=== PATIENT | female | born 1965 | race Caucasian/White ===

== ENCOUNTER 2016-12-05 15:56 | Emergency (ER) | payer SELFPAY ==
--- NOTE | 2016-12-05 16:08 | ER Document Report ---
ED Medical Screen (RME) - General Stated Complaint: FALL;LEG PAIN Time seen by provider: 16:03 Mode of Arrival: Medic Information source: Patient Notes: Patient complains of lower leg pain from the knees down bilaterally for 2 days. States swelling to her right knee. Denies new injury. Also states she went to sit down yesterday and fell back and hit her head on the table. Denies loss of consciousness. States she has only had 1 drink today, vodka. I have greeted and performed a rapid initial assessment of this patient. A comprehensive ED assessment and evaluation of the patient, analysis of test results and completion of the medical decision making process will be conducted by additional ED providers. TRAVEL OUTSIDE OF THE [place] IN LAST 30 DAYS: No - Related Data Allergies/Adverse Reactions: No Known Allergies Allergy (Verified 08/29/16 00:02) Past Medical History - Past Medical History Cardiac Medical History: Reports: Hx Heart Attack, Hx Hypertension Neurological Medical History: Reports: Hx Cerebrovascular Accident Past Surgical History: Reports: Hx Breast Surgery - Benign, Hx Tubal Ligation - Immunizations Hx Diphtheria, Pertussis, Tetanus Vaccination: Yes
--- NOTE | 2016-12-05 17:09 | ER Document Report ---
ED General - General Chief Complaint: Leg Pain Stated Complaint: FALL;LEG PAIN Mode of Arrival: Medic Information source: Patient Notes: Patient presents to the emergency department with complaints of bilateral lower leg pain for two days. She points to her shins bilaterally, rubs them and reports they ache. She denies recent exercise or new shoes. She denies calf pain. She denies trauma. She reports it just started hurting. She reports it hurts to walk. She also reports she went to sit in the recliner yesterday and missed, fell hitting her head. Denies change in LOC. Denies drinking alcohol yesterday. She c/o head pain today. Denies v/d. Patient reports she is only had one vodka drink today. TRAVEL OUTSIDE OF THE [place] IN LAST 30 DAYS: No - HPI Onset: Other - 2 days Onset/Duration: Persistent Quality of pain: Achy Severity: Severe Pain Level: 5 Associated symptoms: None Exacerbated by: Walking Relieved by: Denies Similar symptoms previously: No Recently seen / treated by doctor: No - Related Data Allergies/Adverse Reactions: No Known Allergies Allergy (Verified 08/29/16 00:02) Past Medical History - General Information source: Patient - Social History Smoking Status: Current Every Day Smoker Cigarette use (# per day): Yes Chew tobacco use (# tins/day): No Frequency of alcohol use: Social Drug Abuse: None Lives with: Friend - boyfriend Family History: Arthritis, CAD, CVA, Hyperlipidemia, Hypertension, Malignancy Patient has suicidal ideation: No Patient has homicidal ideation: No - Past Medical History Cardiac Medical History: Reports: Hx Heart Attack - 2010, Hx Hypertension Neurological Medical History: Reports: Hx Cerebrovascular Accident Renal/ Medical History: Denies: Hx Peritoneal Dialysis Past Surgical History: Reports: Hx Breast Surgery - Benign, Hx Tubal Ligation - Immunizations Hx Diphtheria, Pertussis, Tetanus Vaccination: Yes Review of Systems - Review of Systems Notes: Review HPI for review of systems., All other systems negative Physical Exam - Vital signs Vitals: Temp Pulse Resp BP Pulse Ox 97.5 F 90 16 138/90 H 98 12/05/16 16:00 12/05/16 16:00 12/05/16 16:00 12/05/16 16:00 12/05/16 16:00 - Notes Notes: PHYSICAL EXAMINATION: GENERAL: Well-appearing and in no acute distress nontoxic looking HEAD: Atraumatic, normocephalic. EYES: Pupils equal round and reactive to light, extraocular movements intact, sclera anicteric, conjunctiva are normal. ENT: nares patent, Moist mucous membranes. NECK: Normal range of motion, supple without lymphadenopathy LUNGS: CTAB and equal. No wheezes rales or rhonchi. HEART: Regular rate and rhythm without murmurs EXTREMITIES: Normal range of motion, no pitting edema. No cyanosis. no erythema , no swelling, neg homans, good pedal pulses bilaterally good pushes and pulls bilaterally, no weakness noted. NEUROLOGICAL: Cranial nerves grossly intact. Normal sensory/motor answers all questions appropriately. PSYCH: Normal mood, normal affect. SKIN: Warm, Dry, normal turgor, no erythema noted Course - Re-evaluation Re-evalutation: 12/05/16 17:10 I have consulted the attending provider dr avilez, per [facility] guidelines, ct head advised 12/05/16 18:30 Bilateral tib-fib and CT negative..Review of old records noted patient was here in August with a fall and EtOH on board. Patient was instructed on results and encouraged to decrease drinking. - Vital Signs Vital signs: Temp Pulse Resp BP Pulse Ox 98.5 F 83 16 133/92 H 97 12/05/16 18:50 12/05/16 18:50 12/05/16 16:00 12/05/16 18:50 12/05/16 18:50 - Diagnostic Test Radiology reviewed: Image reviewed, Reports reviewed - neg ct, neg tib fibs Discharge - Discharge Clinical Impression: biateral lower leg [place] pain, Elevated blood pressure reading Fall Qualifiers: Encounter type: initial encounter Qualified Code(s): W19.XXXA - Unspecified fall, initial encounter Head injury Qualifiers: Encounter type: initial encounter Qualified Code(s): S09.90XA - Unspecified injury of head, initial encounter Condition: Stable Disposition: HOME, SELF-CARE Instructions: Use of [id number] Ibuprofen ([facility]), Head Injury Precautions ([facility]) Additional Instructions: *You have been evaluated for bilateral lower leg, [place] pain, fall *Monitor your blood pressure. Your blood pressure was elevated today. This may be because you were anxious, in pain or because you need medication. It is important to follow up with your primary care provider for full evaluation. *Take tylenol as indicated for pain *Monitor your alcohol intake *Follow up with your primary care provider Wednesday for recheck *Return to ED for worsening condition, changes, needs Forms: Elevated Blood Pressure
[2016-12-05 18:58] VITALS: BP 133/92
== END 2016-12-05 18:59 | disposition home or self-care (01) ==
LOC: ER 15:56
DX: S09.90XA Unspecified injury of head, initial encounter (principal); R51 Headache; W07.XXXA Fall from chair, initial encounter; M79.662 Pain in left lower leg; M79.661 Pain in right lower leg; I25.2 Old myocardial infarction; I10 Essential (primary) hypertension; F17.210 Nicotine dependence, cigarettes, uncomplicated; Z86.73 Personal history of transient ischemic attack (TIA), and cerebral infarction without residual deficits
CPT/HCPCS: 70450; 99284

== ENCOUNTER 2016-12-22 07:17 | Emergency (ER) | payer SELFPAY ==
--- NOTE | 2016-12-22 09:28 | ER Document Report ---
ED General - General Chief Complaint: Leg Pain Stated Complaint: LEG PAIN Mode of Arrival: Ambulatory Information source: Patient Notes: 51-year-old female presents with complaints of bilateral leg pain after mechanical fall 2 weeks ago. Patient was seen at that time noted to have no fractures. Patient denies any loss of bowel or bladder function TRAVEL OUTSIDE OF THE [place] IN LAST 30 DAYS: No - HPI Onset: Other - 2 week duration Onset/Duration: Persistent Quality of pain: Achy Severity: Mild Pain Level: 1 Associated symptoms: Body/muscle aches Exacerbated by: Movement Relieved by: Denies Similar symptoms previously: No Recently seen / treated by doctor: No - Related Data Allergies/Adverse Reactions: No Known Allergies Allergy (Verified 12/22/16 07:41) Past Medical History - Social History Smoking Status: Current Every Day Smoker Cigarette use (# per day): No Chew tobacco use (# tins/day): Yes Smoking Education Provided: No Frequency of alcohol use: Heavy Family History: Arthritis, CAD, CVA, Hyperlipidemia, Hypertension, Malignancy Patient has suicidal ideation: No Patient has homicidal ideation: No - Past Medical History Cardiac Medical History: Reports: Hx Heart Attack - 2011, Hx Hypertension Neurological Medical History: Reports: Hx Cerebrovascular Accident Renal/ Medical History: Denies: Hx Peritoneal Dialysis Past Surgical History: Reports: Hx Breast Surgery - Benign, Hx Tubal Ligation - Immunizations Hx Diphtheria, Pertussis, Tetanus Vaccination: Yes Review of Systems - Review of Systems Notes: REVIEW OF SYSTEMS: CONSTITUTIONAL : Denies fever, chills, or sweats. Denies recent illness. EENT: Denies eye, ear, throat, or mouth pain or symptoms. Denies nasal or sinus congestion or discharge. Denies throat, tongue, or mouth swelling or difficulty swallowing. CARDIOVASCULAR: Denies chest pain. Denies palpitations or racing or irregular heart beat. Denies ankle edema. RESPIRATORY: Denies cough, cold, or chest congestion. Denies shortness of breath, difficulty breathing, or wheezing. GASTROINTESTINAL: Denies abdominal pain or distention. Denies nausea, vomiting , or diarrhea. Denies blood in vomitus, stools, or per rectum. Denies black, tarry stools. Denies constipation. GENITOURINARY: Denies difficulty urinating, painful urination, burning, frequency, blood in urine, or discharge. FEMALE GENITOURINARY: Denies vaginal bleeding, heavy or abnormal periods, irregular periods. Denies vaginal discharge or odor. MUSCULOSKELETAL: Admits to bilateral [place] pain rating to her feet with numbness SKIN: Denies rash, lesions or sores. HEMATOLOGIC : Denies easy bruising or bleeding. LYMPHATIC: Denies swollen, enlarged glands. NEUROLOGICAL: Denies confusion or altered mental status. Denies passing out or loss of consciousness. Denies dizziness or lightheadedness. Denies headache. Denies weakness or paralysis or loss of use of either side. Denies problems with gait or speech. Denies sensory loss, numbness, or tingling. Denies seizures. PSYCHIATRIC: Denies anxiety or stress. Denies depression, suicidal ideation, or homicidal ideation. ALL OTHER SYSTEMS REVIEWED AND NEGATIVE. Dictation was performed using [employer] voice recognition software PHYSICAL EXAMINATION: GENERAL: Well-appearing, well-nourished and in no acute distress. HEAD: Atraumatic, normocephalic. EYES: Pupils equal round and reactive to light, extraocular movements intact, conjunctiva are normal. ENT: Nares patent, oropharynx clear without exudates. Moist mucous membranes. NECK: Normal range of motion, supple without lymphadenopathy LUNGS: Breath sounds clear to auscultation bilaterally and equal. No wheezes rales or rhonchi. HEART: Regular rate and rhythm without murmurs ABDOMEN: Soft, nontender, nondistended abdomen. No guarding, no rebound. No masses appreciated. Female : deferred Musculoskeletal: Normal range of motion, no pitting or edema. No cyanosis. NEUROLOGICAL: Cranial nerves grossly intact. Normal speech, normal gait. Normal sensory, motor exams PSYCH: Normal mood, normal affect. SKIN: Warm, Dry, normal turgor, no rashes or lesions noted. Physical Exam - Vital signs Vitals: Temp Pulse Resp BP Pulse Ox 97.6 F 112 H 16 155/106 H 98 12/22/16 07:22 12/22/16 07:22 12/22/16 07:22 12/22/16 07:22 12/22/16 07:22 Course - Re-evaluation Re-evalutation: 12/22/16 09:26 Patient has no calf pain, swelling. Patient's pain is in her shins pain down to her feet with numbness. I will treat her for neuropathy at this time and see no life-threatening issues Patient will be given follow-up with [facility] After performing a Medical Screening Examination, I estimate there is LOW risk for EXPANDING OR RUPTURED ABDOMINAL AORTIC ANEURYSM, CAUDA EQUINA SYNDROME, EPIDURAL MASS LESION, or HERNIATED DISK CAUSING SEVERE SPINAL STENOSIS, thus I consider the discharge disposition reasonable. The patient and I have discussed the diagnosis and risks, and we agree with discharging home and close follow-up. We also discussed returning to the Emergency Department immediately if new or worsening symptoms occur with the understanding that symptoms and presentations can change. We have discussed the symptoms which are most concerning (e.g., saddle anesthesia, urinary or bowel incontinence or retention , changing or worsening pain) that necessitate immediate return. 12/22/16 11:33 - Vital Signs Vital signs: Temp Pulse Resp BP Pulse Ox 97.4 F 87 16 138/74 H 96 12/22/16 09:34 12/22/16 09:34 12/22/16 09:34 12/22/16 09:34 12/22/16 09:34 - Laboratory Laboratory results interpreted by me: 12/22/16 09:19 POC Glucose 116 H Discharge - Discharge Clinical Impression: Neuropathy Leg pain Qualifiers: Laterality: bilateral Qualified Code(s): M79.604 - Pain in right leg Condition: Stable Disposition: HOME, SELF-CARE Instructions: Leg Pain Nonspecific ([facility]) Additional Instructions: Please follow-up with [facility] in 1-2 days for reevaluation Prescriptions: Gabapentin 300 mg PO BID #60 capsule Referrals: JUSTINO VALLE MD [Primary Care Provider] - Follow up tomorrow
[2016-12-22 09:36] VITALS: BP 138/74
== END 2016-12-22 09:30 | disposition home or self-care (01) ==
LOC: ER 07:17
DX: G62.9 Polyneuropathy, unspecified (principal); M79.1 Myalgia; I10 Essential (primary) hypertension; I25.2 Old myocardial infarction; Z86.73 Personal history of transient ischemic attack (TIA), and cerebral infarction without residual deficits; F17.200 Nicotine dependence, unspecified, uncomplicated
CPT/HCPCS: 82962; 99283

== ENCOUNTER 2017-02-12 13:31 | Inpatient (IN) | payer SELFPAY ==
[2017-02-12] MEDS ORDERED: NORMAL SALINE 1000 ML 1,000 ML IV ONE (13:52)
[2017-02-12] MEDS ORDERED: THIAMINE HCL INJ 200 MG/2 ML VIAL IV ONE (13:53)
--- NOTE | 2017-02-12 13:57 | ER Document Report ---
ED General - General Mode of Arrival: Medic Information source: Emergency Med Personnel TRAVEL OUTSIDE OF THE [place] IN LAST 30 DAYS: No - HPI Patient complains to provider of: Jaundice Onset: Other - 3 weeks ago Associated symptoms: Other - see notes above <MICHAELA GAXIOLA - Last Filed: 02/12/17 13:51> <MAXIMUS MEDINA - Last Filed: 02/12/17 18:27> - General Chief Complaint: Jaundice Stated Complaint: WEAKNESS Notes: 52 year old female with history of alcohol abuse presents to the ED via EMS after reportedly being in bed jaundiced for the past 3 weeks. ED nursing staff state that the patient was brought in covered in her own feces and urine. A comprehensive HPI is unobtainable secondary to the patient's status. (MICHAELA GAXIOLA) - Related Data Allergies/Adverse Reactions: No Known Allergies Allergy (Verified 12/22/16 07:41) Past Medical History - General Information source: Emergency Med Personnel - Social History Smoking Status: Unknown if Ever Smoked Frequency of alcohol use: Heavy Family History: Arthritis, CAD, CVA, Hyperlipidemia, Hypertension, Malignancy - Past Medical History Cardiac Medical History: Reports: Hx Heart Attack - 2011, Hx Hypertension Neurological Medical History: Reports: Hx Cerebrovascular Accident Renal/ Medical History: Denies: Hx Peritoneal Dialysis Past Surgical History: Reports: Hx Breast Surgery - Benign, Hx Tubal Ligation - Immunizations Hx Diphtheria, Pertussis, Tetanus Vaccination: Yes <MICHAELA GAXIOLA - Last Filed: 02/12/17 13:51> Review of Systems - Review of Systems -: Yes ROS unobtainable due to patient's medical condition <MICHAELA GAXIOLA - Last Filed: 02/12/17 13:51> Physical Exam - General General appearance: Alert, Other - cachectic In distress: None - HEENT Head: Normocephalic, Atraumatic Eyes: Other - scleral jaundice. No: Normal Extraocular movements intact: Yes Pupils: PERRL - Respiratory Respiratory status: No respiratory distress Breath sounds: Normal - Cardiovascular Rhythm: Regular Heart sounds: Normal auscultation - Abdominal Inspection: Normal Distension: No distension Tenderness: Nontender - Back Back: Normal - Extremities General upper extremity: Normal ROM. No: Normal inspection - dark brown staining under the bilateral cuticles General lower extremity: Normal ROM. No: Normal inspection - dark brown staining under the bilateral cuticles - Neurological Neuro grossly intact: Yes - Skin Skin Temperature: Warm Skin Moisture: Dry Skin Color: Jaundiced <MICHAELA GAXIOLA - Last Filed: 02/12/17 13:51> - Rectal Tenderness: No <MAXIMUS MEDINA - Last Filed: 02/12/17 18:27> - Vital signs Vitals: Resp 14 02/12/17 13:51 - Rectal Notes: There are small decubitus ulcers on the buttocks (MAXIMUS MEDINA) Course - Laboratory Result Diagrams: 02/12/17 15:26 02/12/17 15:26 - EKG Interpretation by Me EKG shows normal: Sinus rhythm, [place], Intervals, QRS Complexes, ST-T Waves Rate: Normal - 95 Rhythm: NSR - Consults Dr. Pinedo Time consulted: 17:35 Consulted provider: will come to ER <MAXIMUS MEDINA - Last Filed: 02/12/17 18:27> - Vital Signs Vital signs: Temp Pulse Resp BP Pulse Ox 100 16 86/54 L 66 L 02/12/17 15:00 02/12/17 18:01 02/12/17 18:00 02/12/17 17:00 - Laboratory Laboratory results interpreted by me: 02/12/17 02/12/17 02/12/17 15:26 15:26 15:26 WBC 22.3 H RBC 2.20 L Hgb 7.1 L Hct 23.6 L MCV 107 H MCHC 30.0 L RDW 23.0 H Seg Neuts % (Manual) 79 H Band Neutrophils % 7 H Lymphocytes % (Manual) 10 L Abs Neuts (Manual) 19.2 H PT 19.2 H Sodium 162.6 H Potassium 3.4 L Carbon Dioxide 33 H Anion Gap 28 H BUN 148 H Creatinine 4.65 H Est GFR ( Amer) 12 L Est GFR (Non-Af Amer) 10 L Calcium 7.3 L Magnesium 2.5 H Total Bilirubin 10.3 H Direct Bilirubin 7.9 H AST 112 H Alkaline Phosphatase 219 H Albumin 2.5 L Urine Protein Urine Blood Urine Nitrite Urine Bilirubin Urine Urobilinogen Crossmatch 02/12/17 02/12/17 15:40 17:20 WBC RBC Hgb Hct MCV MCHC RDW Seg Neuts % (Manual) Band Neutrophils % Lymphocytes % (Manual) Abs Neuts (Manual) PT Sodium Potassium Carbon Dioxide Anion Gap BUN Creatinine Est GFR ( Amer) Est GFR (Non-Af Amer) Calcium Magnesium Total Bilirubin Direct Bilirubin AST Alkaline Phosphatase Albumin Urine Protein 30 H Urine Blood SMALL H Urine Nitrite POSITIVE H Urine Bilirubin MODERATE H Urine Urobilinogen 4.0 H Crossmatch See Detail Discharge <MICHAELA GAXIOLA - Last Filed: 02/12/17 13:51> - Discharge Admitting Provider: Hospitalist Unit Admitted: ICU <MAXIMUS MEDINA - Last Filed: 02/12/17 18:27> - Discharge Clinical Impression: Dehydration with hypernatremia, Hypokalemia, Alcoholic liver failure Acute renal failure Qualifiers: Acute renal failure type: unspecified Qualified Code(s): N17.9 - Acute kidney failure, unspecified Anemia Qualifiers: Anemia type: unspecified type Qualified Code(s): D64.9 - Anemia, unspecified Hypotension Qualifiers: Hypotension type: unspecified hypotension type Qualified Code(s): I95.9 - Hypotension, unspecified Scribe Attestation: 02/12/17 17:38 I personally performed the services described in the documentation, reviewed and edited the documentation which was dictated to the scribe in my presence, and it accurately records my words and actions. (MAXIMUS MEDINA) Scribe Documentation - Scribe Written by Johann:: Johann Barbosa, 02/12/2017 1358 acting as scribe for :: Cait <MICHAELA GAXIOLA - Last Filed: 02/12/17 13:51>
[2017-02-12 15:43] LABS: HEMATOCRIT 23.6 % (36.0-47.0); HGB HCT DIFFERENCE -2.3; MEAN CORPUSCULAR HEMOGLOBIN 32.2 pg (27.0-33.4); MEAN CORPUSCULAR VOLUME 107 fl (80-97); WHITE BLOOD COUNT 22.3 10^3/uL (4.0-10.5)
[2017-02-12 15:50] LABS: PROTHROMBIN TIME 19.2 SEC (11.4-15.4)
[2017-02-12 15:56] LABS: ALANINE AMINOTRANSFERASE 42 U/L (9-52); ALBUMIN 2.5 g/dL (3.5-5.0); ALKALINE PHOSPHATASE 219 U/L (38-126); ASPARTATE AMINO TRANSFERASE 112 U/L (14-36); BILIRUBIN,DIRECT 7.9 mg/dL (0.0-0.4); BILIRUBIN,TOTAL 10.3 mg/dL (0.2-1.3); CALCIUM 7.3 mg/dL (8.4-10.2); CREATININE RESULT 4.65 mg/dL (0.52-1.25); GLUCOSE 100 mg/dL (75-110); MAGNESIUM 2.5 mg/dL (1.6-2.3); POTASSIUM 3.4 mmol/L (3.6-5.0); TOTAL PROTEIN 6.8 g/dL (6.3-8.2)
[2017-02-12 16:01] LABS: BAND NEUTROPHILS % (MANUAL) 7 % (3-5); BASOPHILS % (MANUAL) 0 % (0-2); EOSINOPHILS % (MANUAL) 1 % (0-6); LYMPHOCYTES % (MANUAL) 10 % (13-45); NUCLEATED RED BLOOD CELLS 1 /100 WBC (0); TOTAL CELLS COUNTED 100
[2017-02-12 16:03] LABS: ANISOCYTOSIS 2+; BLOOD UREA NITROGEN 148 mg/dL (7-20); HYPOCHROMASIA SLIGHT; OVALOCYTES SLIGHT; POIKILOCYTOSIS 1+; POLYCHROMASIA SLIGHT; TARGET CELLS SLIGHT; TEAR DROP CELLS SLIGHT; TOXIC GRANULATION SLIGHT
[2017-02-12 16:05] LABS: HEMOGLOBIN 7.1 g/dL (12.0-15.5)
[2017-02-12 16:10] LABS: CARBON DIOXIDE 33 mmol/L (22-30); CHLORIDE 102 mmol/L (98-107); SODIUM 162.6 mmol/L (137-145)
[2017-02-12] MEDS ORDERED: CEFTRIAXONE 1 GM/D5W RTU 50 ML IV ONE (16:10)
[2017-02-12] MEDS ORDERED: NORMAL SALINE 250 ML IV PRN (16:10)
[2017-02-12 16:14] LABS: ANION GAP 28 (5-19)
[2017-02-12] MEDS ORDERED: POTASSI CL 20 MEQ/NS 1L 1,000 ML IV ONE (16:31)
[2017-02-12 16:39] LABS: APPEARANCE,URINE CLOUDY; BILIRUBIN,URINE MODERATE (NEGATIVE); GLUCOSE, URINE NEGATIVE (NEGATIVE); KETONES,URINE NEGATIVE (NEGATIVE); LEUKOCYTE ESTERASE,URINE NEGATIVE (NEGATIVE); NITRITE,URINE POSITIVE (NEGATIVE); PROTEIN,URINE 30 mg/dL (NEGATIVE); URINE SPECIFIC GRAVITY 1.016
[2017-02-12 17:07] LABS: ADD ON TESTING BLD IN LAB ACKNOWLEDGE
[2017-02-12] MEDS ORDERED: LIDOCAINE 1% INJ-PF (10 MG/ML) 30 ML SDV ONE (17:14)
--- NOTE | 2017-02-12 17:31 | Operative Report ---
Operative Report DATE OF SURGERY: 02/12/17 PREOPERATIVE DIAGNOSIS: Sepsis, acute renal failure, acute liver failure POSTOPERATIVE DIAGNOSIS: Same OPERATION: 1. Focused ultrasound of the right groin with ultrasound directed triple -lumen central venous access catheter insertion SURGEON: EBENEZER ANDERSON ANESTHESIA: Local TISSUE REMOVED OR ALTERED: none COMPLICATIONS: none ESTIMATED BLOOD LOSS: scant INTRAOPERATIVE FINDINGS: see below PROCEDURE: Informed consent was obtained. The patient was placed in supine position and the right groin was exposed and prepped and draped in a sterile fashion. Surgical plan and surgical timeout discussed. The right groin was scanned with the variable frequency linear transducer. The area was anesthetized with 1% lidocaine without epinephrine. Using the variable frequency linear transducer, real time, a 18-gauge needle and wire were threaded into the right femoral vein. The tract was dilated up, the dilator removed, and the triple-lumen central venous access catheter was threaded into the right femoral vein uneventfully to the hub. There was excellent aspiration and flush of saline through all 3 lumens. The catheter was affixed to the skin with a Biopatch and 2-0 silk suture; sterile dressing applied. The patient tolerated the procedure well. There were no complications.
[2017-02-12 17:33] LABS: ALCOHOL < 10 mg/dL (NONE DETECTED)
[2017-02-12] MEDS ORDERED: NORMAL SALINE 1000 ML 2,000 ML IV ONE (18:05)
[2017-02-12] MEDS ORDERED: DEXTROSE 40% GEL 15 GM TUBE PO PRN ×2 (18:11)
[2017-02-12] MEDS ORDERED: DEXTROSE 50%-WATER 25 GM/50 ML DISP.SYRIN IV PRN ×2 (18:11)
[2017-02-12] MEDS ORDERED: GLUCAGON,HUMAN RECOMB 1 MG INJ SUBCUT PRN (18:11)
[2017-02-12] MEDS ORDERED: LORAZEPAM INJ 2 MG/1 ML VIAL IV PRN (18:15)
[2017-02-12] MEDS ORDERED: VANCOMYCIN HCL 0 MG in DEXTROSE 5%-WATER 250 ML IV NR (18:15)
--- NOTE | 2017-02-12 18:33 | PDOC H&P ---
History of Present Illness Admission Date/PCP: 02/12/17 17:53 JUSTINO VALLE, Patient complains of: jaundice History of Present Illness: CHULA FINNEY is a 52 year old female year old female with history of alcohol abuse presents to the ED via EMS after reportedly being in bed jaundiced for the past 3 weeks. ED nursing staff state that the patient was brought in covered in her own feces and urine. A comprehensive HPI is unobtainable secondary to the patient's status. upon evaluation in the ED patient was found extremely jaundiced, clinically extremely dehydrated; no acute liver and renal failure with severe electrolyte imbalance She was subsequently admitted to ICU with the diagnosis of sepsis;severe dehydration ;liver and renal failure Patient is not answering questions appropriately and further history is not available at time of this dictation Past Medical History Cardiac Medical History: Reports: Myocardial Infarction - 2010, Hypertension Hematology: Reports: Anemia Past Surgical History Past Surgical History: Reports: Tubal Ligation Social History Lives with: Other - Unknown patient is not answering questions appropriately No information can be obtained Smoking Status: Unknown if Ever Smoked - Advance Directive Resuscitation Status: Full Code Surrogate healthcare decision maker:: We will presume full code Family History Family History: Arthritis, CAD, CVA, Hyperlipidemia, Hypertension, Malignancy Parental Family History Reviewed: Yes Children Family History Reviewed: Yes Sibling(s) Family History Reviewed.: Yes Medication/Allergy Home Medications: Gabapentin 300 mg PO BID #60 capsule 12/22/16 Allergies/Adverse Reactions: No Known Allergies Allergy (Verified 12/22/16 07:41) Review of Systems ROS unobtainable: Due to mental status Physical Exam Vital Signs: Temp Pulse Resp BP Pulse Ox 100 16 86/54 L 66 L 02/12/17 15:00 02/12/17 18:01 02/12/17 18:00 02/12/17 17:00 General appearance: PRESENT: severe distress, thin, other - Extremely dehydrated and malnourished Head exam: PRESENT: atraumatic, normocephalic Eye exam: PRESENT: EOMI, PERRLA, scleral icterus Mouth exam: PRESENT: dry mucosa, tongue midline Teeth exam: PRESENT: poor dentation Neck exam: ABSENT: carotid bruit, JVD, lymphadenopathy, thyromegaly Respiratory exam: PRESENT: clear to auscultation lachelle. ABSENT: rales, rhonchi, wheezes Cardiovascular exam: PRESENT: RRR. ABSENT: diastolic murmur, rubs, systolic murmur Pulses: PRESENT: normal dorsalis pedis pul GI/Abdominal exam: ABSENT: ascites, firm, guarding, rebound Extremities exam: ABSENT: calf tenderness, clubbing, joint swelling, pedal edema Neurological exam: PRESENT: altered Psychiatric exam: PRESENT: flat affect Skin exam: PRESENT: abrasion Additional comments: Abrasions visualized in the perineal area and buttocks Results Laboratory Results: 02/12/17 15:26 02/12/17 15:26 02/12/17 02/12/17 02/12/17 15:26 15:26 15:40 WBC 22.3 H RBC 2.20 L Hgb 7.1 L Hct 23.6 L MCV 107 H MCH 32.2 MCHC 30.0 L RDW 23.0 H Plt Count 206 Seg Neutrophils % Not Reportable Lymphocytes % Not Reportable Monocytes % Not Reportable Eosinophils % Not Reportable Basophils % Not Reportable Absolute Neutrophils Not Reportable Absolute Lymphocytes Not Reportable Absolute Monocytes Not Reportable Absolute Eosinophils Not Reportable Absolute Basophils Not Reportable Sodium 162.6 H Potassium 3.4 L Chloride 102 Carbon Dioxide 33 H Anion Gap 28 H BUN 148 H Creatinine 4.65 H Est GFR ( Amer) 12 L Est GFR (Non-Af Amer) 10 L Glucose 100 Calcium 7.3 L Magnesium 2.5 H Total Bilirubin 10.3 H AST 112 H ALT 42 Alkaline Phosphatase 219 H Ammonia Total Protein 6.8 Albumin 2.5 L Urine Color JUAN Urine Appearance CLOUDY Urine pH 5.0 Ur Specific [place] 1.016 Urine Protein 30 H Urine Glucose (UA) NEGATIVE Urine Ketones NEGATIVE Urine Blood SMALL H Urine Nitrite POSITIVE H Ur Leukocyte Esterase NEGATIVE Urine WBC (Auto) 12 Urine RBC (Auto) 2 Stool Occult Blood 02/12/17 02/12/17 16:45 17:20 WBC RBC Hgb Hct MCV MCH MCHC RDW Plt Count Seg Neutrophils % Lymphocytes % Monocytes % Eosinophils % Basophils % Absolute Neutrophils Absolute Lymphocytes Absolute Monocytes Absolute Eosinophils Absolute Basophils Sodium Potassium Chloride Carbon Dioxide Anion Gap BUN Creatinine Est GFR ( Amer) Est GFR (Non-Af Amer) Glucose Calcium Magnesium Total Bilirubin AST ALT Alkaline Phosphatase Ammonia 24.8 Total Protein Albumin Urine Color Urine Appearance Urine pH Ur Specific [place] Urine Protein Urine Glucose (UA) Urine Ketones Urine Blood Urine Nitrite Ur Leukocyte Esterase Urine WBC (Auto) Urine RBC (Auto) Stool Occult Blood NEGATIVE Assessment & Plan - Diagnosis (1) Sepsis Is this a current diagnosis for this admission?: YesPlan: Source of sepsis likely biliary We will continue Zosyn CT abdomen and pelvis pending (2) Acute renal failure Qualifiers: Acute renal failure type: unspecified Qualified Code(s): N17.9 - Acute kidney failure, unspecified Is this a current diagnosis for this admission?: YesPlan: Likely to be decreased secondary to acute tubular necrosis secondary to dehydration Hydrate with normal saline CT abdomen and pelvis to exclude post obstructive uropathy. Loja catheter to be inserted Treatment was broad spectrum antibiotics Vanco and Zosyn (3) Alcoholic liver failure Is this a current diagnosis for this admission?: YesPlan: Patient is extremely jaundiced We will obtain the CAT scan to evaluate biliary system Ultrasound of the right upper quadrant will be ordered in a.m. Cover with Zosyn in case patient has an acute cholecystitis or acute cholangitis (4) Dehydration with hypernatremia Is this a current diagnosis for this admission?: YesPlan: We hydrate with normal saline at this time BMP in 4 hours - Time Critical Time spent with patient: 25-34 minutes - Inpatient Certification Based on my medical assessment, after consideration of the patient's comorbidities, presenting symptoms, or acuity I expect that the services needed warrant INPATIENT care.: Yes I certify that my determination is in accordance with my understanding of Medicare's requirements for reasonable and necessary INPATIENT services [42 CFR 412.3e].: Yes Medical Necessity: Need For IV Fluids, Need For Continuous Telemetry Monitoring , Need for IV Antibiotics
[2017-02-12] MEDS ORDERED: VANCOMYCIN HCL INJ 1000 MG VIAL INJ PRN (19:18)
[2017-02-12] MEDS ORDERED: PIPERACILLIN/TAZOBACTAM 2.25 GM VIAL IV PRN (19:19)
[2017-02-12 19:20] LABS: APPEARANCE,URINE SLIGHTLY-CLOUDY; BILIRUBIN,URINE MODERATE (NEGATIVE); GLUCOSE, URINE NEGATIVE (NEGATIVE); KETONES,URINE NEGATIVE (NEGATIVE); LEUKOCYTE ESTERASE,URINE NEGATIVE (NEGATIVE); NITRITE,URINE POSITIVE (NEGATIVE); PROTEIN,URINE 30 mg/dL (NEGATIVE); URINE SPECIFIC GRAVITY 1.015
[2017-02-12] MEDS ORDERED: VANCOMYCIN HCL 750 MG in DEXTROSE 5%-WATER 250 ML IV ONE (19:30)
[2017-02-12] MEDS ORDERED: THIAMINE HCL INJ 200 MG/2 ML VIAL IV PRN (20:10)
[2017-02-12] MEDS ORDERED: FOLIC ACID INJ 5 MG/1 ML 10 ML VIAL IV PRN (20:11)
[2017-02-12 20:41] LABS: VENOUS BLOOD HCO3 31.8 mmol/L (20-32); VENOUS BLOOD PCO2 40.8 mmHg (35-63); VENOUS BLOOD PH 7.51 (7.30-7.42)
[2017-02-12 21:10] LABS: FOLATE 6.91 ng/mL (>2.76)
[2017-02-12] MEDS: NORMAL SALINE 1000 ML 1,000 ML IV PRN (21:44)
[2017-02-12] MEDS ORDERED: PIPERACILLIN/TAZOBACTAM 2.25 GM VIAL IV ONE (21:54)
[2017-02-12] MEDS: PIPERACILLIN SODIUM/TAZOBACTAM 2.25 GM in NORMAL SALINE 50 ML IV SCH (22:39)
[2017-02-12] MEDS: HEPARIN SOD (PORCINE) 5,000 UNIT/ML 1 ML SYRINGE SUBCUT SCH (22:59)
[2017-02-12] MEDS ORDERED: ALBUMIN HUMAN 150 ML IV ONE (23:04)
[2017-02-12 23:55] LABS: ANION GAP 18 (5-19); CARBON DIOXIDE 30 mmol/L (22-30); CHLORIDE 109 mmol/L (98-107); CREATININE RESULT 3.82 mg/dL (0.52-1.25); GLUCOSE 148 mg/dL (75-110); SODIUM 156.9 mmol/L (137-145)
[2017-02-13 00:06] LABS: BLOOD UREA NITROGEN 122 mg/dL (7-20)
[2017-02-13 00:07] LABS: CALCIUM 5.9 mg/dL (8.4-10.2); POTASSIUM 2.6 mmol/L (3.6-5.0)
--- NOTE | 2017-02-13 00:10 | EKG REPORT ---
SEVERITY:- ABNORMAL ECG - SINUS RHYTHM NONSPECIFIC ST-T CHANGES DIFFUSE : Confirmed by: Jose Pickering MD 13-Feb-2017 00:10:18
[2017-02-13] MEDS ORDERED: NOREPINEPHRINE BITARTRATE INJ/PF 4 MG/4 ML SDV IV ONE (00:11)
[2017-02-13] MEDS ORDERED: POTASSI CL 20 MEQ/50 ML RIDER 20 MEQ/50 ML RTUPB IV ONE (00:16)
[2017-02-13] MEDS ORDERED: CALCIUM GLUCONATE 1000 MG/10 ML INJ IV ONE ×3 (00:17→14:45)
[2017-02-13] MEDS: ALBUMIN HUMAN 50 ML IV SCH ×7 (00:22→03:34)
[2017-02-13] MEDS ORDERED: CALCIUM GLUCONATE 2,000 MG in DEXTROSE 5%-WATER 100 ML IV ONE (01:00)
[2017-02-13] MEDS ORDERED: NORMAL SALINE 1000 ML 1,000 ML IV ONE (01:30)
[2017-02-13] MEDS: POTASSIUM CHLORIDE 20 MEQ/50 ML RTU IV SCH ×3 (01:56→04:52)
[2017-02-13] MEDS: NORMAL SALINE 1000 ML 1,000 ML IV PRN (04:51)
[2017-02-13 05:20] LABS: HEMATOCRIT 30.7 % (36.0-47.0); HGB HCT DIFFERENCE -0.4; MEAN CORPUSCULAR HEMOGLOBIN 31.5 pg (27.0-33.4); RED BLOOD COUNT 3.22 10^6/uL (3.72-5.28); RED CELL DISTRIBUTION WIDTH 23.8 % (11.5-14.0); WHITE BLOOD COUNT 21.9 10^3/uL (4.0-10.5)
[2017-02-13 05:43] LABS: HEMOGLOBIN 10.1 g/dL (12.0-15.5)
[2017-02-13 05:44] LABS: MEAN CORPUSCULAR VOLUME 95 fl (80-97)
[2017-02-13] MEDS: PIPERACILLIN SODIUM/TAZOBACTAM 2.25 GM in NORMAL SALINE 50 ML IV SCH ×3 (05:44→21:45)
[2017-02-13 06:44] LABS: ANION GAP 16 (5-19); BLOOD UREA NITROGEN 111 mg/dL (7-20); CARBON DIOXIDE 26 mmol/L (22-30); CHLORIDE 118 mmol/L (98-107); CHOLESTEROL 54.11 mg/dL (0-200); CREATININE RESULT 3.34 mg/dL (0.52-1.25); Direct HDL 12 mg/dL (>40); GLUCOSE 104 mg/dL (75-110); LIPASE 87.6 U/L (23-300); SODIUM 160.3 mmol/L (137-145); TRIGLYCERIDES 140 mg/dL (<150)
[2017-02-13 06:50] LABS: CALCIUM 7.1 mg/dL (8.4-10.2)
[2017-02-13 06:58] LABS: DIRECT LDL < 30 mg/dL (<100)
[2017-02-13 06:59] LABS: POTASSIUM 3.8 mmol/L (3.6-5.0)
[2017-02-13 07:14] LABS: THYROID STIMULATING HORMONE 4.44 uIU/mL (0.47-4.68)
[2017-02-13] MEDS: HEPARIN SOD (PORCINE) 5,000 UNIT/ML 1 ML SYRINGE SUBCUT SCH ×2 (09:01→21:45)
[2017-02-13] MEDS: LORAZEPAM INJ 2 MG/1 ML VIAL IV SCH ×3 (09:01→17:32)
[2017-02-13] MEDS: 1/2 NORMAL SALINE 1,000 ML IV PRN ×3 (09:02→19:48)
[2017-02-13] MEDS ORDERED: THIAMINE HCL 100 MG, FOLIC ACID 1 MG in NORMAL SALINE 50 ML IV SCH (10:00)
--- NOTE | 2017-02-13 10:12 | EKG REPORT ---
SEVERITY:- ABNORMAL ECG - SINUS RHYTHM LOW VOLTAGE WITH RIGHT AXIS DEVIATION BORDERLINE T ABNORMALITIES, ANT-LAT LEADS BORDERLINE PROLONGED QT INTERVAL : Confirmed by: Jose Pickering MD 13-Feb-2017 10:12:07
[2017-02-13] MEDS ORDERED: THIAMINE HCL 500 MG in NORMAL SALINE 50 ML IV ONE (11:00)
[2017-02-13] MEDS: DEXTROSE 5%-WATER 250 ML with NOREPINEPHRINE BITARTRATE 4 MG IV PRN ×2 (12:47)
[2017-02-13 13:50] LABS: ANION GAP 17 (5-19); BLOOD UREA NITROGEN 101 mg/dL (7-20); CARBON DIOXIDE 24 mmol/L (22-30); CHLORIDE 117 mmol/L (98-107); CREATININE RESULT 3.17 mg/dL (0.52-1.25); GLUCOSE 113 mg/dL (75-110); SODIUM 157.6 mmol/L (137-145)
[2017-02-13 13:59] LABS: CALCIUM 6.7 mg/dL (8.4-10.2)
[2017-02-13] MEDS ORDERED: CALCIUM GLUCONATE 1,000 MG in DEXTROSE 5%-WATER 50 ML IV ONE (14:03)
[2017-02-13] MEDS: THIAMINE HCL 500 MG in NORMAL SALINE 50 ML IV SCH ×2 (14:08→21:45)
--- NOTE | 2017-02-13 14:29 | PDOC PROGRESS REPORT ---
Subjective Progress Note for:: 02/13/17 Subjective:: Patient is extremely restless and tremulous confused and at times agitated She is in no respiratory distress ; she remains awake She is still jaundiced and looks extremely ill Physical Exam Vital Signs: Temp Pulse Resp BP Pulse Ox 99.3 F 106 H 23 H 92/68 L 93 02/13/17 12:00 02/13/17 12:00 02/13/17 14:02 02/13/17 14:02 02/13/17 14:02 Intake & Output 02/12/17 02/13/17 02/14/17 00:59 00:59 00:59 Intake Total 350 350 Output Total 125 530 Balance 225 -180 Weight 49 kg 49 kg General appearance: PRESENT: disheveled, mild distress, thin, other - Jaundiced Head exam: PRESENT: atraumatic, normocephalic Eye exam: PRESENT: conjunctiva pale, PERRLA, scleral icterus Mouth exam: PRESENT: dry mucosa Teeth exam: PRESENT: dental caries, poor dentation Neck exam: ABSENT: carotid bruit, JVD, lymphadenopathy, thyromegaly Respiratory exam: PRESENT: clear to auscultation lachelle. ABSENT: rales, rhonchi, wheezes Cardiovascular exam: PRESENT: RRR. ABSENT: diastolic murmur, rubs, systolic murmur Pulses: PRESENT: normal dorsalis pedis pul GI/Abdominal exam: PRESENT: soft. ABSENT: ascites, mass, tenderness Extremities exam: PRESENT: full ROM. ABSENT: calf tenderness, clubbing, pedal edema Neurological exam: PRESENT: awake Psychiatric exam: PRESENT: agitated Focused psych exam: PRESENT: other - Confused looks frightened Results Laboratory Results: 02/13/17 05:00 02/13/17 13:15 02/12/17 02/12/17 02/12/17 18:58 20:15 20:15 WBC RBC Hgb Hct MCV MCH MCHC RDW Plt Count VBG pH 7.51 H VBG pCO2 40.8 VBG HCO3 31.8 VBG Base Excess 8.0 Sodium Potassium Chloride Carbon Dioxide Anion Gap BUN Creatinine Est GFR ( Amer) Est GFR (Non-Af Amer) Glucose Lactic Acid 1.8 Calcium Ammonia Triglycerides Cholesterol LDL Cholesterol Direct VLDL Cholesterol HDL Cholesterol Lipase TSH Free T4 Urine Color JUAN Urine Appearance SLIGHTLY-CLOUDY Urine pH 5.0 Ur Specific [place] 1.015 Urine Protein 30 H Urine Glucose (UA) NEGATIVE Urine Ketones NEGATIVE Urine Blood SMALL H Urine Nitrite POSITIVE H Ur Leukocyte Esterase NEGATIVE Urine WBC (Auto) 34 Urine RBC (Auto) 1 02/12/17 02/13/17 02/13/17 23:10 05:00 05:00 WBC 21.9 H RBC 3.22 L Hgb 10.1 L D Hct 30.7 L MCV 95 D MCH 31.5 MCHC 33.0 RDW 23.8 H Plt Count 146 L VBG pH VBG pCO2 VBG HCO3 VBG Base Excess Sodium 156.9 H Potassium 2.6 L* Chloride 109 H Carbon Dioxide 30 Anion Gap 18 BUN 122 H D Creatinine 3.82 H Est GFR ( Amer) 15 L Est GFR (Non-Af Amer) 12 L Glucose 148 H Lactic Acid Calcium 5.9 L* Ammonia 31.7 Triglycerides Cholesterol LDL Cholesterol Direct VLDL Cholesterol HDL Cholesterol Lipase TSH Free T4 Urine Color Urine Appearance Urine pH Ur Specific [place] Urine Protein Urine Glucose (UA) Urine Ketones Urine Blood Urine Nitrite Ur Leukocyte Esterase Urine WBC (Auto) Urine RBC (Auto) 02/13/17 02/13/17 02/13/17 06:15 06:15 13:15 WBC RBC Hgb Hct MCV MCH MCHC RDW Plt Count VBG pH VBG pCO2 VBG HCO3 VBG Base Excess Sodium 160.3 H 157.6 H Potassium 3.8 D 3.0 L* Chloride 118 H 117 H Carbon Dioxide 26 24 Anion Gap 16 17 BUN 111 H 101 H Creatinine 3.34 H 3.17 H Est GFR ( Amer) 18 L 19 L Est GFR (Non-Af Amer) 14 L 15 L Glucose 104 113 H Lactic Acid Calcium 7.1 L 6.7 L* Ammonia Triglycerides 140 Cholesterol 54.11 LDL Cholesterol Direct < 30 VLDL Cholesterol 28.0 HDL Cholesterol 12 L Lipase 87.6 TSH 4.44 Free T4 1.53 Urine Color Urine Appearance Urine pH Ur Specific [place] Urine Protein Urine Glucose (UA) Urine Ketones Urine Blood Urine Nitrite Ur Leukocyte Esterase Urine WBC (Auto) Urine RBC (Auto) Impressions: Chest X-Ray 02/12/17 17:37 IMPRESSION: NO ACUTE RADIOGRAPHIC FINDING IN THE CHEST. Abdomen/Pelvis CT 02/12/17 18:04 IMPRESSION: BILATERAL NEPHROLITHIASIS WITHOUT LOWER URINARY TRACT STONES OR HYDRONEPHROSIS. HEPATOMEGALY IN THE SETTING OF SEVERE HEPATIC STEATOSIS COMPATIBLE WITH HISTORY OF LIVER FAILURE. Assessment & Plan - Diagnosis (1) Sepsis Qualifiers: Sepsis type: sepsis due to unspecified organism Qualified Code(s): A41.9 - Sepsis, unspecified organism Is this a current diagnosis for this admission?: YesPlan: Sepsis secondary to gram-negative negative bacteremia and gram-negative urinary tract infection Continue IV fluids; continue Levophed Discontinued vancomycin Continue Cipro and Zosyn (2) Acute renal failure Qualifiers: Acute renal failure type: unspecified Qualified Code(s): N17.9 - Acute kidney failure, unspecified Is this a current diagnosis for this admission?: YesPlan: Improving Creatinine is now over [address] abdomen and pelvis showed normal kidneys without hydronephrosis (3) Alcoholic liver failure Is this a current diagnosis for this admission?: YesPlan: Acute on chronic liver failure Follow-up LFTs today The Tylenol level was negative (4) Dehydration with hypernatremia Is this a current diagnosis for this admission?: YesPlan: Hypernatremia is improving Continue half-normal saline (5) Hypocalcemia Is this a current diagnosis for this admission?: YesPlan: Replace Patient is likely vitamin D deficient (6) Hypokalemia Is this a current diagnosis for this admission?: YesPlan: Replace (7) Metabolic encephalopathy Is this a current diagnosis for this admission?: YesPlan: Likely secondary to sepsis , liver failure and renal failure We will administer high-dose thiamine treat as Wernicke's CT head was negative TSH vitamin B-12 within normal range - Time Time Spent with patient: Patient's condition is still guarded Time Spent with patient: 35 or more minutes
[2017-02-13] MEDS ORDERED: VANCOMYCIN HCL 0 MG in DEXTROSE 5%-WATER 250 ML IV NR (14:45)
[2017-02-13] MEDS ORDERED: CIPROFLOXACIN 400 MG/D5W RTU 200 ML IV SCH (15:00)
[2017-02-13] MEDS: POTASSI CL 20 MEQ/50 ML RIDER 50 ML IV SCH ×2 (15:10→17:31)
[2017-02-13 15:40] LABS: ALANINE AMINOTRANSFERASE 35 U/L (9-52); ALBUMIN 2.2 g/dL (3.5-5.0); ALKALINE PHOSPHATASE 163 U/L (38-126); ASPARTATE AMINO TRANSFERASE 76 U/L (14-36); BILIRUBIN,DIRECT 11.7 mg/dL (0.0-0.4); TOTAL PROTEIN 5.3 g/dL (6.3-8.2)
[2017-02-13 15:51] LABS: BILIRUBIN,TOTAL 14.2 mg/dL (0.2-1.3)
[2017-02-13 20:15] LABS: ANION GAP 15 (5-19); BLOOD UREA NITROGEN 96 mg/dL (7-20); CALCIUM 7.1 mg/dL (8.4-10.2); CARBON DIOXIDE 23 mmol/L (22-30); CHLORIDE 117 mmol/L (98-107); CREATININE RESULT 2.91 mg/dL (0.52-1.25); GLUCOSE 115 mg/dL (75-110); POTASSIUM 3.8 mmol/L (3.6-5.0); SODIUM 155.1 mmol/L (137-145)
[2017-02-13] MEDS ORDERED: LORAZEPAM INJ 2 MG/1 ML VIAL IV SCH ×2 (21:00→21:30)
[2017-02-14] MEDS: 1/2 NORMAL SALINE 1,000 ML IV PRN ×4 (01:40→20:55)
[2017-02-14] MEDS: PIPERACILLIN SODIUM/TAZOBACTAM 2.25 GM in NORMAL SALINE 50 ML IV SCH ×3 (06:08→22:55)
[2017-02-14] MEDS: THIAMINE HCL 500 MG in NORMAL SALINE 50 ML IV SCH ×3 (06:09→22:56)
[2017-02-14 06:35] LABS: ALANINE AMINOTRANSFERASE 28 U/L (9-52); ALBUMIN 2.1 g/dL (3.5-5.0); ALKALINE PHOSPHATASE 157 U/L (38-126); ANION GAP 15 (5-19); ASPARTATE AMINO TRANSFERASE 60 U/L (14-36); BILIRUBIN,DIRECT 12.5 mg/dL (0.0-0.4); BILIRUBIN,TOTAL 14.5 mg/dL (0.2-1.3); BLOOD UREA NITROGEN 83 mg/dL (7-20); CALCIUM 7.1 mg/dL (8.4-10.2); CARBON DIOXIDE 21 mmol/L (22-30); CHLORIDE 117 mmol/L (98-107); CREATININE RESULT 2.78 mg/dL (0.52-1.25); GLUCOSE 88 mg/dL (75-110); POTASSIUM 3.5 mmol/L (3.6-5.0); SODIUM 152.9 mmol/L (137-145); TOTAL PROTEIN 5.5 g/dL (6.3-8.2)
[2017-02-14 06:36] LABS: ABSOLUTE BASOPHILS # (AUTO) 0.2 10^3/uL (0.0-0.2); ABSOLUTE EOSINOPHILS # (AUTO) 1.3 10^3/uL (0.0-0.6); ABSOLUTE MONOCYTES (AUTO) 0.5 10^3/uL (0.1-1.4); ABSOLUTE NEUT (AUTO) 15.5 10^3/uL (1.7-8.2); BASOPHILS % (AUTO) 0.8 % (0-2); EOSINOPHILS % (AUTO) 6.5 % (0-6); HEMATOCRIT 31.6 % (36.0-47.0); HEMOGLOBIN 10.3 g/dL (12.0-15.5); HGB HCT DIFFERENCE -0.7; LYMPHOCYTES % (AUTO) 10.1 % (13-45); MEAN CORPUSCULAR HEMOGLOBIN 31.4 pg (27.0-33.4); MEAN CORPUSCULAR HGB CONC 32.8 g/dL (32.0-36.0); MEAN CORPUSCULAR VOLUME 96 fl (80-97); MONOCYTES % (AUTO) 2.5 % (3-13); RED CELL DISTRIBUTION WIDTH 24.5 % (11.5-14.0); SEGMENTED NEUTROPHILS % (AUTO) 80.1 % (42-78); WHITE BLOOD COUNT 19.3 10^3/uL (4.0-10.5)
[2017-02-14 06:52] LABS: ANISOCYTOSIS 3+; BURR CELLS 1+; POIKILOCYTOSIS 2+; POLYCHROMASIA SLIGHT; TEAR DROP CELLS SLIGHT; TOXIC GRANULATION 1+; TOXIC VACUOLATION PRESENT
[2017-02-14] MEDS: LORAZEPAM INJ 2 MG/1 ML VIAL IV SCH (09:00)
[2017-02-14] MEDS: HEPARIN SOD (PORCINE) 5,000 UNIT/ML 1 ML SYRINGE SUBCUT SCH ×2 (10:14→22:54)
[2017-02-14] MEDS: FUROSEMIDE INJ/PF 20 MG/2 ML SDV IV SCH ×2 (10:14→22:54)
[2017-02-14] MEDS: ALBUMIN HUMAN 50 ML IV SCH ×2 (10:18→22:54)
[2017-02-14] MEDS ORDERED: POTASSI CL 20 MEQ/50 ML RIDER 50 ML IV ONE (12:41)
[2017-02-14] MEDS: DEXTROSE 5%-WATER 250 ML with NOREPINEPHRINE BITARTRATE 4 MG IV PRN ×2 (14:26)
--- NOTE | 2017-02-14 15:01 | PDOC PROGRESS REPORT ---
Subjective Progress Note for:: 02/14/17 Subjective:: Patient still looks extremely ill and jaundiced She is confused and obtunded She is still somewhat hypotensive and on Levophed Gallbladder ultrasound was suggestive of acute cholecystitis Blood cultures are positive for gram-negative Physical Exam Vital Signs: Temp Pulse Resp BP Pulse Ox 97.5 F 87 19 101/76 100 02/14/17 12:00 02/14/17 08:00 02/14/17 12:00 02/14/17 12:00 02/14/17 12:00 Intake & Output 02/13/17 02/14/17 02/15/17 00:59 00:59 00:59 Intake Total 350 4766 2141 Output Total 125 860 670 Balance 225 3906 1471 Weight 49 kg 49 kg 55.5 kg General appearance: PRESENT: mild distress, thin, other - Jaundiced Head exam: PRESENT: atraumatic, normocephalic Eye exam: PRESENT: PERRLA, scleral icterus Neck exam: ABSENT: carotid bruit, JVD, lymphadenopathy, thyromegaly Cardiovascular exam: PRESENT: RRR. ABSENT: diastolic murmur, rubs, systolic murmur Vascular exam: PRESENT: normal capillary refill GI/Abdominal exam: PRESENT: ascites. ABSENT: rebound, rigid Rectal exam: PRESENT: deferred Neurological exam: PRESENT: CN II-XII grossly intact, other - Altered Results Laboratory Results: 02/14/17 06:05 02/14/17 06:05 02/13/17 02/13/17 02/13/17 13:15 18:35 19:50 WBC RBC Hgb Hct MCV MCH MCHC RDW Plt Count Seg Neutrophils % Lymphocytes % Monocytes % Eosinophils % Basophils % Absolute Neutrophils Absolute Lymphocytes Absolute Monocytes Absolute Eosinophils Absolute Basophils Sodium Cancelled 155.1 H Potassium Cancelled 3.8 Chloride Cancelled 117 H Carbon Dioxide Cancelled 23 Anion Gap Cancelled 15 BUN Cancelled 96 H Creatinine Cancelled 2.91 H Est GFR ( Amer) Cancelled 21 L Est GFR (Non-Af Amer) Cancelled 17 L Glucose Cancelled 115 H Calcium Cancelled 7.1 L Total Bilirubin 14.2 H D AST 76 H ALT 35 Alkaline Phosphatase 163 H Ammonia Total Protein 5.3 L Albumin 2.2 L 02/14/17 02/14/17 02/14/17 06:05 06:05 08:43 WBC 19.3 H RBC 3.30 L Hgb 10.3 L Hct 31.6 L MCV 96 MCH 31.4 MCHC 32.8 RDW 24.5 H Plt Count 130 L Seg Neutrophils % 80.1 H Lymphocytes % 10.1 L Monocytes % 2.5 L Eosinophils % 6.5 H Basophils % 0.8 Absolute Neutrophils 15.5 H Absolute Lymphocytes 2.0 Absolute Monocytes 0.5 Absolute Eosinophils 1.3 H Absolute Basophils 0.2 Sodium 152.9 H Potassium 3.5 L Chloride 117 H Carbon Dioxide 21 L Anion Gap 15 BUN 83 H Creatinine 2.78 H Est GFR ( Amer) 22 L Est GFR (Non-Af Amer) 18 L Glucose 88 Calcium 7.1 L Total Bilirubin 14.5 H AST 60 H ALT 28 Alkaline Phosphatase 157 H Ammonia 33.0 Total Protein 5.5 L Albumin 2.1 L Impressions: Chest X-Ray 02/12/17 17:37 IMPRESSION: NO ACUTE RADIOGRAPHIC FINDING IN THE CHEST. Abdomen/Pelvis CT 02/12/17 18:04 IMPRESSION: BILATERAL NEPHROLITHIASIS WITHOUT LOWER URINARY TRACT STONES OR HYDRONEPHROSIS. HEPATOMEGALY IN THE SETTING OF SEVERE HEPATIC STEATOSIS COMPATIBLE WITH HISTORY OF LIVER FAILURE. Abdomen Ultrasound 02/14/17 08:26 IMPRESSION: Diffusely echogenic liver from diffuse fatty infiltration hepatocellular disease Gallbladder filled with sludge, definite gallbladder wall thickening and pericholecystic fluid. Findings worrisome for cholecystitis Assessment & Plan - Diagnosis (1) Sepsis Qualifiers: Sepsis type: sepsis due to unspecified organism Qualified Code(s): A41.9 - Sepsis, unspecified organism Is this a current diagnosis for this admission?: YesPlan: Gram-negative sepsis Continue present antibiotics Source likely biliary sepsis (2) Acute renal failure Qualifiers: Acute renal failure type: unspecified Qualified Code(s): N17.9 - Acute kidney failure, unspecified Is this a current diagnosis for this admission?: YesPlan: Is improving slowly 02/12/17 02/14/17 23:10 06:05 Potassium 3.5 L BUN 122 H D 83 H Creatinine 3.82 H 2.78 H Continue hydration (3) Alcoholic liver failure Is this a current diagnosis for this admission?: YesPlan: Acute on chronic liver failure secondary to alcoholic liver disease Continue supportive management (4) Dehydration with hypernatremia Is this a current diagnosis for this admission?: Yes (5) Hypocalcemia Is this a current diagnosis for this admission?: Yes (6) Hypokalemia Is this a current diagnosis for this admission?: Yes (7) Metabolic encephalopathy Is this a current diagnosis for this admission?: YesPlan: Secondary to sepsis and renal failure Ammonia level was normal, (8) Acute cholecystitis Is this a current diagnosis for this admission?: YesPlan: surgical consult with Dr. Madrigal will be obtained If patient is thought not to be a surgical candidate for cholecystectomy, cholecystostomy tube will be placed by interventional radiology in a.m. Continue antibiotic management - Time Time Spent with patient: Patient's condition is extremely guarded Critical Time spent with patient: 25-34 minutes
[2017-02-14] MEDS ORDERED: NORMAL SALINE 250 ML IV PRN ×2 (17:25)
--- NOTE | 2017-02-14 17:26 | PDOC CONSULTATION ---
Consultation Consult Date: 02/14/17 Attending physician:: OLVIN MCCURDY Consult reason:: Cholecystitis History of Present Illness Admission Date/PCP: 02/12/17 18:11 JUSTINO VALLE, History of Present Illness: CHULA FINNEY is a 52 year old female year old female with history of alcohol abuse presents to the ED via EMS after reportedly being in bed jaundiced for the past 3 weeks. ED nursing staff state that the patient was brought in covered in her own feces and urine. A comprehensive HPI is unobtainable secondary to the patient's status. upon evaluation in the ED patient was found extremely jaundiced, clinically extremely dehydrated; no acute liver and renal failure with severe electrolyte imbalance She was subsequently admitted to ICU with the diagnosis of sepsis;severe dehydration ;liver and renal failure Patient is not answering questions appropriately and further history is not available at time of this dictation. Surgeons addendum: Since admission, patient has been monitored in the intensive care unit, treated with vasopressors, intravenous antibiotics, and fluid resuscitation. Her is growing gram-negative rods out of her blood; gallbladder ultrasonography confirms gallbladder wall thickness, intraluminal sludge, and pericholecystic fluid. CT scan showed findings consistent with hepatic failure. Scan was limited due to the absence of IV and oral contrast. Patient remains in a severely altered state mentally area Past Medical History Cardiac Medical History: Reports: Myocardial Infarction - 2011, Hypertension Hematology: Reports: Anemia Past Surgical History Past Surgical History: Reports: Tubal Ligation Social History Lives with: Other - Unknown patient is not answering questions appropriately No information can be obtained Smoking Status: Unknown if Ever Smoked - Advance Directive Resuscitation Status: Full Code Family History Family History: Arthritis, CAD, CVA, Hyperlipidemia, Hypertension, Malignancy Parental Family History Reviewed: Yes Children Family History Reviewed: Yes Sibling(s) Family History Reviewed.: Yes Medication/Allergy Home Medications: Unobtainable [Unobtainable] 02/13/17 Allergies/Adverse Reactions: No Known Allergies Allergy (Verified 12/22/16 07:41) Physical Exam Vital Signs: Temp Pulse Resp BP Pulse Ox 97.5 F 87 21 H 94/72 L 100 02/14/17 12:00 02/14/17 08:00 02/14/17 16:00 02/14/17 15:37 02/14/17 16:00 Intake & Output 02/13/17 02/14/17 02/15/17 06:59 06:59 06:59 Intake Total 700 6557 Output Total 696 781 8742 Balance 295 0440 -3991 Weight 49 kg 55.5 kg General appearance: PRESENT: other - In the ICU, essentially unresponsive Head exam: PRESENT: other - Severe jaundice Mouth exam: PRESENT: other - Terrible dentition with multiple teeth lost Respiratory exam: PRESENT: rhonchi - Laterally, other Cardiovascular exam: PRESENT: RRR GI/Abdominal exam: PRESENT: other - Slightly distended, diffusely tender but nonlocalized Additional comments: Decreased [place] Coma Score, approximately 7-8, the remainder of the examination is limited from a neuro and psychological standpoint. SHe does not open eyes, localizes to stimulation, and moans Results Laboratory Results: 02/14/17 06:05 02/14/17 06:05 02/13/17 02/13/17 02/14/17 18:35 19:50 06:05 WBC 19.3 H RBC 3.30 L Hgb 10.3 L Hct 31.6 L MCV 96 MCH 31.4 MCHC 32.8 RDW 24.5 H Plt Count 130 L Seg Neutrophils % 80.1 H Lymphocytes % 10.1 L Monocytes % 2.5 L Eosinophils % 6.5 H Basophils % 0.8 Absolute Neutrophils 15.5 H Absolute Lymphocytes 2.0 Absolute Monocytes 0.5 Absolute Eosinophils 1.3 H Absolute Basophils 0.2 Sodium Cancelled 155.1 H Potassium Cancelled 3.8 Chloride Cancelled 117 H Carbon Dioxide Cancelled 23 Anion Gap Cancelled 15 BUN Cancelled 96 H Creatinine Cancelled 2.91 H Est GFR ( Amer) Cancelled 21 L Est GFR (Non-Af Amer) Cancelled 17 L Glucose Cancelled 115 H Calcium Cancelled 7.1 L Total Bilirubin AST ALT Alkaline Phosphatase Ammonia Total Protein Albumin 02/14/17 02/14/17 06:05 08:43 WBC RBC Hgb Hct MCV MCH MCHC RDW Plt Count Seg Neutrophils % Lymphocytes % Monocytes % Eosinophils % Basophils % Absolute Neutrophils Absolute Lymphocytes Absolute Monocytes Absolute Eosinophils Absolute Basophils Sodium 152.9 H Potassium 3.5 L Chloride 117 H Carbon Dioxide 21 L Anion Gap 15 BUN 83 H Creatinine 2.78 H Est GFR ( Amer) 22 L Est GFR (Non-Af Amer) 18 L Glucose 88 Calcium 7.1 L Total Bilirubin 14.5 H AST 60 H ALT 28 Alkaline Phosphatase 157 H Ammonia 33.0 Total Protein 5.5 L Albumin 2.1 L 02/12/17 18:58 Loja Catheter Urine Culture - Final Escherichia Coli Impressions: Chest X-Ray 02/12/17 17:37 IMPRESSION: NO ACUTE RADIOGRAPHIC FINDING IN THE CHEST. Abdomen/Pelvis CT 02/12/17 18:04 IMPRESSION: BILATERAL NEPHROLITHIASIS WITHOUT LOWER URINARY TRACT STONES OR HYDRONEPHROSIS. HEPATOMEGALY IN THE SETTING OF SEVERE HEPATIC STEATOSIS COMPATIBLE WITH HISTORY OF LIVER FAILURE. Abdomen Ultrasound 02/14/17 08:26 IMPRESSION: Diffusely echogenic liver from diffuse fatty infiltration hepatocellular disease Gallbladder filled with sludge, definite gallbladder wall thickening and pericholecystic fluid. Findings worrisome for cholecystitis Assessment & Plan - Diagnosis (1) Acute cholecystitis Is this a current diagnosis for this admission?: YesPlan: Since clinical, laboratory, and radiographic findings consistent with cholecystitis. Furthermore she has sepsis syndrome with persisting leukocytosis despite 2 days of intravenous antibiotics. Given her multiple severe comorbidities, end-stage renal and end-stage liver failure, and impending pneumonia, I believe taking the patient to the operating room to undergo general anesthesia will be a significant risk to the patient. Therefore I have recommended to the hospitalist service that we recruit the assistance of interventional radiology to place a percutaneous cholecystostomy tube. That will be arranged in the next 24 hours. Please reconsult surgical services if necessary (2) Acute renal failure Qualifiers: Acute renal failure type: unspecified Qualified Code(s): N17.9 - Acute kidney failure, unspecified Is this a current diagnosis for this admission?: Yes (3) Metabolic encephalopathy Is this a current diagnosis for this admission?: Yes (4) Dehydration with hypernatremia Is this a current diagnosis for this admission?: Yes - Time Time Spent: 50 to 70 Minutes Critical Time spent with patient: 15-24 minutes Medications reviewed and adjusted accordingly: Yes
[2017-02-14] MEDS ORDERED: VANCOMYCIN HCL 500 MG in DEXTROSE 5%-WATER 100 ML IV SCH ×4 (18:00)
[2017-02-15] MEDS: PIPERACILLIN SODIUM/TAZOBACTAM 2.25 GM in NORMAL SALINE 50 ML IV SCH (05:36)
[2017-02-15] MEDS: 1/2 NORMAL SALINE 1,000 ML IV PRN (05:37)
[2017-02-15] MEDS: THIAMINE HCL 500 MG in NORMAL SALINE 50 ML IV SCH ×3 (05:37→21:13)
[2017-02-15 06:10] LABS: ABSOLUTE BASOPHILS # (AUTO) 0.1 10^3/uL (0.0-0.2); ABSOLUTE LYMPHOCYTES (AUTO) 1.4 10^3/uL (0.5-4.7); ABSOLUTE MONOCYTES (AUTO) 0.5 10^3/uL (0.1-1.4); ABSOLUTE NEUT (AUTO) 10.7 10^3/uL (1.7-8.2); HEMATOCRIT 27.1 % (36.0-47.0); HGB HCT DIFFERENCE -0.1; LYMPHOCYTES % (AUTO) 10.3 % (13-45); MEAN CORPUSCULAR HEMOGLOBIN 31.3 pg (27.0-33.4); MEAN CORPUSCULAR HGB CONC 33.1 g/dL (32.0-36.0); MEAN CORPUSCULAR VOLUME 95 fl (80-97); MONOCYTES % (AUTO) 3.3 % (3-13); RED BLOOD COUNT 2.87 10^6/uL (3.72-5.28); RED CELL DISTRIBUTION WIDTH 23.5 % (11.5-14.0); SEGMENTED NEUTROPHILS % (AUTO) 78.4 % (42-78); WHITE BLOOD COUNT 13.6 10^3/uL (4.0-10.5)
[2017-02-15 06:18] LABS: ANION GAP 16 (5-19); BLOOD UREA NITROGEN 68 mg/dL (7-20); CALCIUM 7.6 mg/dL (8.4-10.2); CARBON DIOXIDE 22 mmol/L (22-30); CHLORIDE 112 mmol/L (98-107); CREATININE RESULT 2.16 mg/dL (0.52-1.25); GLUCOSE 78 mg/dL (75-110)
[2017-02-15 06:21] LABS: PROTHROMBIN TIME 18.5 SEC (11.4-15.4)
[2017-02-15 06:23] LABS: POTASSIUM 2.4 mmol/L (3.6-5.0)
[2017-02-15] MEDS: MAGNESIUM SULFATE/D5W 1 GM/100 ML RTUPB IV SCH ×3 (08:46→10:59)
[2017-02-15] MEDS: POTASSIUM CHLORIDE 20 MEQ/50 ML RTU IV SCH ×4 (08:47→16:33)
--- NOTE | 2017-02-15 09:18 | PDOC PROGRESS REPORT ---
Subjective Progress Note for:: 02/15/17 Subjective:: CHULA FINNEY is a 52 year old female year old female with history of alcohol abuse presents to the ED via EMS after reportedly being in bed jaundiced for the past 3 weeks. ED nursing staff state that the patient was brought in covered in her own feces and urine. A comprehensive HPI is unobtainable secondary to the patient's status. upon evaluation in the ED patient was found extremely jaundiced, clinically extremely dehydrated; no acute liver and renal failure with severe electrolyte imbalance She was subsequently admitted to ICU with the diagnosis of sepsis;severe dehydration ;liver and renal failure Patient is not answering questions appropriately and further history is not available at time of this dictation Upon initial evaluation patient was in acute renal failure, acute on chronic liver failure, with metabolic encephalopathy She was initially treated with pressors broad-spectrum antibiotics She clinically improved but she remains altered Current issues are as follow: 1- gram-negative sepsis secondary to acute cholecystitis Escherichia coli was isolated Patient is to be continued on Zosyn Cholecystostomy tube to be placed today 2 gram-positive cocci bacteremia Isolated from a peripheral vein Continue vancomycin 3-encephalopathy Likely secondary to sepsis and electrolyte imbalance Patient is being treated with high dose thiamine as presumptive Wernicke's encephalopathy Initial CT head was negative, and ammonia level was normal 4 acute renal failure Resolving 5 hypernatremia Resolving 6 electrolyte imbalance with severe hypocalcemia hypomagnesemia Replaced Physical Exam Vital Signs: Temp Pulse Resp BP Pulse Ox 97.9 F 74 16 111/78 100 02/15/17 05:55 02/15/17 05:04 02/15/17 06:00 02/15/17 05:57 02/15/17 06:00 Intake & Output 02/14/17 02/15/17 02/16/17 00:59 00:59 00:59 Intake Total 0458 4506 2313 Output Total 860 2400 755 Balance 3906 2106 1558 Weight 49 kg 55.5 kg 57.2 kg General appearance: PRESENT: mild distress, thin Head exam: PRESENT: atraumatic, normocephalic Eye exam: PRESENT: PERRLA, scleral icterus Mouth exam: PRESENT: dry mucosa Neck exam: ABSENT: carotid bruit, JVD, lymphadenopathy, thyromegaly Respiratory exam: PRESENT: clear to auscultation lachelle. ABSENT: rales, rhonchi, wheezes GI/Abdominal exam: PRESENT: normal bowel sounds, soft. ABSENT: distended, guarding, mass, organolmegaly, rebound, tenderness Extremities exam: PRESENT: full ROM. ABSENT: calf tenderness, clubbing, pedal edema Neurological exam: PRESENT: altered Results Laboratory Results: 02/15/17 05:40 02/15/17 05:40 02/14/17 02/15/17 02/15/17 08:43 05:40 05:40 WBC 13.6 H RBC 2.87 L Hgb 9.0 L Hct 27.1 L MCV 95 MCH 31.3 MCHC 33.1 RDW 23.5 H Plt Count 79 L Seg Neutrophils % 78.4 H Lymphocytes % 10.3 L Monocytes % 3.3 Eosinophils % 7.0 H Basophils % 1.0 Absolute Neutrophils 10.7 H Absolute Lymphocytes 1.4 Absolute Monocytes 0.5 Absolute Eosinophils 1.0 H Absolute Basophils 0.1 Sodium 150.0 H Potassium 2.4 L* D Chloride 112 H Carbon Dioxide 22 Anion Gap 16 BUN 68 H Creatinine 2.16 H Est GFR ( Amer) 29 L Est GFR (Non-Af Amer) 24 L Glucose 78 Calcium 7.6 L Magnesium Ammonia 33.0 02/15/17 05:40 WBC RBC Hgb Hct MCV MCH MCHC RDW Plt Count Seg Neutrophils % Lymphocytes % Monocytes % Eosinophils % Basophils % Absolute Neutrophils Absolute Lymphocytes Absolute Monocytes Absolute Eosinophils Absolute Basophils Sodium Potassium Chloride Carbon Dioxide Anion Gap BUN Creatinine Est GFR ( Amer) Est GFR (Non-Af Amer) Glucose Calcium Magnesium 1.2 L* Ammonia 02/12/17 18:58 Loja Catheter Urine Culture - Final Escherichia Coli Impressions: Chest X-Ray 02/12/17 17:37 IMPRESSION: NO ACUTE RADIOGRAPHIC FINDING IN THE CHEST. Abdomen/Pelvis CT 02/12/17 18:04 IMPRESSION: BILATERAL NEPHROLITHIASIS WITHOUT LOWER URINARY TRACT STONES OR HYDRONEPHROSIS. HEPATOMEGALY IN THE SETTING OF SEVERE HEPATIC STEATOSIS COMPATIBLE WITH HISTORY OF LIVER FAILURE. Abdomen Ultrasound 02/14/17 08:26 IMPRESSION: Diffusely echogenic liver from diffuse fatty infiltration hepatocellular disease Gallbladder filled with sludge, definite gallbladder wall thickening and pericholecystic fluid. Findings worrisome for cholecystitis Assessment & Plan - Diagnosis (1) Sepsis Qualifiers: Sepsis type: sepsis due to unspecified organism Qualified Code(s): A41.9 - Sepsis, unspecified organism Is this a current diagnosis for this admission?: Yes (2) Acute renal failure Qualifiers: Acute renal failure type: unspecified Qualified Code(s): N17.9 - Acute kidney failure, unspecified Is this a current diagnosis for this admission?: Yes (3) Alcoholic liver failure Is this a current diagnosis for this admission?: Yes (4) Dehydration with hypernatremia Is this a current diagnosis for this admission?: Yes (5) Hypocalcemia Is this a current diagnosis for this admission?: Yes (6) Hypokalemia Is this a current diagnosis for this admission?: Yes (7) Metabolic encephalopathy Is this a current diagnosis for this admission?: Yes (8) Acute cholecystitis Is this a current diagnosis for this admission?: Yes - Time Critical Time spent with patient: 35 or more minutes
[2017-02-15] MEDS: ALBUMIN HUMAN 50 ML IV SCH ×2 (10:04→21:14)
[2017-02-15] MEDS: FUROSEMIDE INJ/PF 20 MG/2 ML SDV IV SCH ×2 (11:01→21:14)
[2017-02-15] MEDS: PIPERACILLIN SODIUM/TAZOBACTAM 3.375 GM in NORMAL SALINE 100 ML IV SCH ×2 (11:08→19:22)
[2017-02-15] MEDS ORDERED: LORAZEPAM INJ 2 MG/1 ML VIAL IV PRN (11:15)
[2017-02-15 14:07] LABS: ANION GAP 16 (5-19); BLOOD UREA NITROGEN 62 mg/dL (7-20); CALCIUM 7.9 mg/dL (8.4-10.2); CARBON DIOXIDE 22 mmol/L (22-30); CHLORIDE 112 mmol/L (98-107); CREATININE RESULT 1.97 mg/dL (0.52-1.25); GLUCOSE 87 mg/dL (75-110); SODIUM 149.8 mmol/L (137-145)
[2017-02-15 14:29] LABS: MAGNESIUM 2.3 mg/dL (1.6-2.3)
[2017-02-15 14:34] LABS: POTASSIUM 2.7 mmol/L (3.6-5.0)
[2017-02-15] MEDS ORDERED: MIDAZOLAM 2 MG/2 ML INJ ONE (15:44)
[2017-02-15] MEDS ORDERED: FENTANYL CITRATE INJ/PF 100 MCG/2 ML AMPUL ONE (15:45)
[2017-02-15] MEDS ORDERED: NALOXONE HCL INJ/PF 0.4 MG/1 ML SDV ONE (16:10)
[2017-02-15] MEDS ORDERED: VANCOMYCIN HCL 500 MG in DEXTROSE 5%-WATER 100 ML IV SCH (18:00)
[2017-02-15 19:50] LABS: ANION GAP 15 (5-19); BLOOD UREA NITROGEN 59 mg/dL (7-20); CARBON DIOXIDE 22 mmol/L (22-30); CHLORIDE 114 mmol/L (98-107); CREATININE RESULT 2.07 mg/dL (0.52-1.25); GLUCOSE 75 mg/dL (75-110); POTASSIUM 3.1 mmol/L (3.6-5.0); SODIUM 151.3 mmol/L (137-145)
[2017-02-15] MEDS ORDERED: POTASSI CL 20 MEQ/50 ML RIDER 40 MEQ/100 ML RTUPB IV ONE (22:55)
[2017-02-16] MEDS: PIPERACILLIN SODIUM/TAZOBACTAM 3.375 GM in NORMAL SALINE 100 ML IV SCH ×4 (00:08→18:16)
[2017-02-16] MEDS: POTASSIUM CHLORIDE 20 MEQ/50 ML RTU IV SCH ×2 (00:39→02:17)
[2017-02-16] MEDS: POTASSI CL 40 MEQ/D5-1/2NS 1L 1,000 ML IV PRN ×3 (02:58→18:34)
[2017-02-16 04:33] LABS: ALANINE AMINOTRANSFERASE 31 U/L (9-52); ALBUMIN 2.3 g/dL (3.5-5.0); ALKALINE PHOSPHATASE 155 U/L (38-126); ANION GAP 12 (5-19); ASPARTATE AMINO TRANSFERASE 51 U/L (14-36); BILIRUBIN,DIRECT 14.9 mg/dL (0.0-0.4); BILIRUBIN,TOTAL 17.1 mg/dL (0.2-1.3); BLOOD UREA NITROGEN 54 mg/dL (7-20); CARBON DIOXIDE 21 mmol/L (22-30); CHLORIDE 117 mmol/L (98-107); CREATININE RESULT 1.87 mg/dL (0.52-1.25); GLUCOSE 146 mg/dL (75-110); MAGNESIUM 1.8 mg/dL (1.6-2.3); POTASSIUM 3.8 mmol/L (3.6-5.0); SODIUM 150.4 mmol/L (137-145); TOTAL PROTEIN 5.8 g/dL (6.3-8.2)
[2017-02-16 04:50] LABS: ABSOLUTE BASOPHILS # (AUTO) 0.1 10^3/uL (0.0-0.2); ABSOLUTE LYMPHOCYTES (AUTO) 1.1 10^3/uL (0.5-4.7); ABSOLUTE MONOCYTES (AUTO) 0.4 10^3/uL (0.1-1.4); ABSOLUTE NEUT (AUTO) 12.5 10^3/uL (1.7-8.2); BASOPHILS % (AUTO) 0.5 % (0-2); EOSINOPHILS % (AUTO) 6.7 % (0-6); HEMATOCRIT 32.4 % (36.0-47.0); HEMOGLOBIN 10.6 g/dL (12.0-15.5); HGB HCT DIFFERENCE -0.6; LYMPHOCYTES % (AUTO) 7.1 % (13-45); MEAN CORPUSCULAR HEMOGLOBIN 31.2 pg (27.0-33.4); MEAN CORPUSCULAR HGB CONC 32.6 g/dL (32.0-36.0); MEAN CORPUSCULAR VOLUME 96 fl (80-97); MONOCYTES % (AUTO) 2.5 % (3-13); RED BLOOD COUNT 3.39 10^6/uL (3.72-5.28); RED CELL DISTRIBUTION WIDTH 23.8 % (11.5-14.0); SEGMENTED NEUTROPHILS % (AUTO) 83.2 % (42-78)
[2017-02-16] MEDS: THIAMINE HCL 500 MG in NORMAL SALINE 50 ML IV SCH ×3 (05:32→21:33)
[2017-02-16] MEDS: FUROSEMIDE INJ/PF 20 MG/2 ML SDV IV SCH ×2 (10:30→21:33)
[2017-02-16] MEDS: ALBUMIN HUMAN 50 ML IV SCH ×2 (10:30→21:33)
[2017-02-16 13:46] LABS: VITAMIN D 1,25 DIHYDROXY 6.7 pg/mL (19.9-79.3)
[2017-02-16 17:07] LABS: ABSOLUTE BASOPHILS # (AUTO) 0.1 10^3/uL (0.0-0.2); ABSOLUTE EOSINOPHILS # (AUTO) 1.1 10^3/uL (0.0-0.6); ABSOLUTE LYMPHOCYTES (AUTO) 1.3 10^3/uL (0.5-4.7); ABSOLUTE MONOCYTES (AUTO) 0.5 10^3/uL (0.1-1.4); ABSOLUTE NEUT (AUTO) 13.2 10^3/uL (1.7-8.2); BASOPHILS % (AUTO) 0.8 % (0-2); EOSINOPHILS % (AUTO) 6.9 % (0-6); HEMATOCRIT 30.8 % (36.0-47.0); HEMOGLOBIN 10.2 g/dL (12.0-15.5); HGB HCT DIFFERENCE -0.2; LYMPHOCYTES % (AUTO) 7.8 % (13-45); MEAN CORPUSCULAR HEMOGLOBIN 31.3 pg (27.0-33.4); MEAN CORPUSCULAR VOLUME 95 fl (80-97); MONOCYTES % (AUTO) 3.4 % (3-13); RED BLOOD COUNT 3.24 10^6/uL (3.72-5.28); RED CELL DISTRIBUTION WIDTH 23.8 % (11.5-14.0); SEGMENTED NEUTROPHILS % (AUTO) 81.1 % (42-78); WHITE BLOOD COUNT 16.3 10^3/uL (4.0-10.5)
[2017-02-16 17:12] LABS: ANION GAP 11 (5-19); BLOOD UREA NITROGEN 49 mg/dL (7-20); CALCIUM 8.1 mg/dL (8.4-10.2); CARBON DIOXIDE 21 mmol/L (22-30); CHLORIDE 119 mmol/L (98-107); CREATININE RESULT 1.83 mg/dL (0.52-1.25); GLUCOSE 138 mg/dL (75-110); POTASSIUM 3.9 mmol/L (3.6-5.0); SODIUM 151.2 mmol/L (137-145)
[2017-02-17] MEDS: PIPERACILLIN SODIUM/TAZOBACTAM 3.375 GM in NORMAL SALINE 100 ML IV SCH ×5 (00:09→23:06)
[2017-02-17] MEDS: POTASSI CL 40 MEQ/D5-1/2NS 1L 1,000 ML IV PRN (02:04)
[2017-02-17 05:46] LABS: ANION GAP 11 (5-19); BLOOD UREA NITROGEN 46 mg/dL (7-20); CALCIUM 8.3 mg/dL (8.4-10.2); CARBON DIOXIDE 20 mmol/L (22-30); CHLORIDE 121 mmol/L (98-107); CREATININE RESULT 1.77 mg/dL (0.52-1.25); GLUCOSE 120 mg/dL (75-110); MAGNESIUM 1.4 mg/dL (1.6-2.3); POTASSIUM 4.3 mmol/L (3.6-5.0); SODIUM 152.3 mmol/L (137-145)
[2017-02-17 05:50] LABS: ABSOLUTE BASOPHILS # (AUTO) 0.2 10^3/uL (0.0-0.2); ABSOLUTE EOSINOPHILS # (AUTO) 1.1 10^3/uL (0.0-0.6); ABSOLUTE LYMPHOCYTES (AUTO) 1.6 10^3/uL (0.5-4.7); ABSOLUTE MONOCYTES (AUTO) 0.5 10^3/uL (0.1-1.4); ABSOLUTE NEUT (AUTO) 14.1 10^3/uL (1.7-8.2); BASOPHILS % (AUTO) 1.1 % (0-2); EOSINOPHILS % (AUTO) 6.2 % (0-6); HEMOGLOBIN 10.1 g/dL (12.0-15.5); HGB HCT DIFFERENCE -0.7; LYMPHOCYTES % (AUTO) 8.9 % (13-45); MEAN CORPUSCULAR HEMOGLOBIN 31.5 pg (27.0-33.4); MEAN CORPUSCULAR HGB CONC 32.5 g/dL (32.0-36.0); MEAN CORPUSCULAR VOLUME 97 fl (80-97); MONOCYTES % (AUTO) 2.7 % (3-13); RED BLOOD COUNT 3.19 10^6/uL (3.72-5.28); RED CELL DISTRIBUTION WIDTH 24.9 % (11.5-14.0); SEGMENTED NEUTROPHILS % (AUTO) 81.1 % (42-78); WHITE BLOOD COUNT 17.4 10^3/uL (4.0-10.5)
[2017-02-17] MEDS: THIAMINE HCL 500 MG in NORMAL SALINE 50 ML IV SCH (05:59)
[2017-02-17 06:12] LABS: ANISOCYTOSIS 3+; BURR CELLS SLIGHT; OVALOCYTES SLIGHT; POIKILOCYTOSIS SLIGHT; SCHISTOCYTES SLIGHT; TEAR DROP CELLS SLIGHT; TOXIC GRANULATION 1+; TOXIC VACUOLATION PRESENT
[2017-02-17] MEDS ORDERED: MAGNESIUM SULFATE/D5W 1 GM/100 ML RTUPB IV ONE (06:36)
[2017-02-17] MEDS: MAGNESIUM SULFATE 1 GM/D5W 100 ML IV SCH ×2 (06:48→09:31)
[2017-02-17 08:43] LABS: ALANINE AMINOTRANSFERASE 26 U/L (9-52); ALBUMIN 2.3 g/dL (3.5-5.0); ALKALINE PHOSPHATASE 150 U/L (38-126); ASPARTATE AMINO TRANSFERASE 45 U/L (14-36); BILIRUBIN,DIRECT 14.3 mg/dL (0.0-0.4); BILIRUBIN,TOTAL 16.9 mg/dL (0.2-1.3); TOTAL PROTEIN 5.6 g/dL (6.3-8.2)
--- NOTE | 2017-02-17 08:50 | PDOC PROGRESS REPORT ---
Subjective Progress Note for:: 02/16/17 Subjective:: This is a follow-up visit for sepsis secondary to acute cholecystitis and bacteremia. The patient was seen earlier this morning unfortunately she was not responsive at the bedside. There've been no acute events overnight. Apparently the patient was more wake up first thing in the morning and I missed that. Physical Exam Vital Signs: Temp Pulse Resp BP Pulse Ox 97.6 F 87 14 99/68 L 100 02/16/17 12:00 02/16/17 14:00 02/16/17 14:00 02/16/17 14:00 02/16/17 14:00 Intake & Output 02/15/17 02/16/17 02/17/17 06:59 06:59 06:59 Intake Total 4678 3072 Output Total 2910 2525 295 Balance 1768 547 -295 Weight 57.2 kg 58.6 kg General appearance: PRESENT: other - In general this is a well-developed thin frail appearing elderly white female currently resting in bed unresponsive but not appearing in any acute distress Head exam: PRESENT: atraumatic, normocephalic Respiratory exam: PRESENT: clear to auscultation lachelle - Was equal rise and fall of the chest. ABSENT: accessory muscle use, rhonchi, tachypnea, wheezes Cardiovascular exam: PRESENT: RRR, systolic murmur. ABSENT: gallop, rubs Pulses: PRESENT: +2 pedal pulses bilateral GI/Abdominal exam: PRESENT: hypoactive bowel sounds, soft. ABSENT: distended, tenderness Extremities exam: ABSENT: clubbing - No cyanosis, pedal edema Neurological exam: PRESENT: altered - Unfortunately patient is unresponsive and does not cooperate for neurologic assessment Skin exam: PRESENT: dry, normal color, warm Additional comments: Right femoral line is in place. And currently looks clean dry and intact without any erythema or swelling associated with the line Results Laboratory Results: 02/16/17 04:15 02/16/17 04:15 02/15/17 02/15/17 02/16/17 18:00 18:00 04:15 WBC 15.0 H RBC 3.39 L Hgb 10.6 L Hct 32.4 L MCV 96 MCH 31.2 MCHC 32.6 RDW 23.8 H Plt Count 73 L Seg Neutrophils % 83.2 H Lymphocytes % 7.1 L Monocytes % 2.5 L Eosinophils % 6.7 H Basophils % 0.5 Absolute Neutrophils 12.5 H Absolute Lymphocytes 1.1 Absolute Monocytes 0.4 Absolute Eosinophils 1.0 H Absolute Basophils 0.1 Sodium 151.3 H Potassium 3.1 L Chloride 114 H Carbon Dioxide 22 Anion Gap 15 BUN 59 H Creatinine 2.07 H Est GFR ( Amer) 30 L Est GFR (Non-Af Amer) 25 L Glucose 75 Calcium 8.0 L Magnesium 2.0 Total Bilirubin AST ALT Alkaline Phosphatase Total Protein Albumin 02/16/17 04:15 WBC RBC Hgb Hct MCV MCH MCHC RDW Plt Count Seg Neutrophils % Lymphocytes % Monocytes % Eosinophils % Basophils % Absolute Neutrophils Absolute Lymphocytes Absolute Monocytes Absolute Eosinophils Absolute Basophils Sodium 150.4 H Potassium 3.8 Chloride 117 H Carbon Dioxide 21 L Anion Gap 12 BUN 54 H Creatinine 1.87 H Est GFR ( Amer) 34 L Est GFR (Non-Af Amer) 28 L Glucose 146 H Calcium 8.0 L Magnesium 1.8 Total Bilirubin 17.1 H AST 51 H ALT 31 Alkaline Phosphatase 155 H Total Protein 5.8 L Albumin 2.3 L 02/12/17 18:22 Blood Blood Culture - Final Staphylococcus Aureus Impressions: Chest X-Ray 02/12/17 17:37 IMPRESSION: NO ACUTE RADIOGRAPHIC FINDING IN THE CHEST. Abdomen/Pelvis CT 02/12/17 18:04 IMPRESSION: BILATERAL NEPHROLITHIASIS WITHOUT LOWER URINARY TRACT STONES OR HYDRONEPHROSIS. HEPATOMEGALY IN THE SETTING OF SEVERE HEPATIC STEATOSIS COMPATIBLE WITH HISTORY OF LIVER FAILURE. Abdomen Ultrasound 02/14/17 08:26 IMPRESSION: Diffusely echogenic liver from diffuse fatty infiltration hepatocellular disease Gallbladder filled with sludge, definite gallbladder wall thickening and pericholecystic fluid. Findings worrisome for cholecystitis Percutaneous Drainage 02/15/17 08:00 IMPRESSION: CT GUIDED CHOLECYSTOSTOMY TUBE PLACEMENT. NO IMMEDIATE COMPLICATIONS. 8 [place] INDWELLING CATHETER WITH LOCKING PIGTAIL IN THE GALLBLADDER. Assessment & Plan - Diagnosis (1) Sepsis Qualifiers: Sepsis type: methicillin susceptible Staphylococcus aureus Qualified Code(s): A41.01 - Sepsis due to Methicillin susceptible Staphylococcus aureus Is this a current diagnosis for this admission?: YesPlan: Patient is septic secondary to acalculous cholecystitis with MSSA. Susceptibilities show that we can discontinue vancomycin at this time. Continue Zosyn. Continue management of cholecystitis. I do note that the patient's white blood cell count is slowly starting to creep back up. We do need to be cautious as she does have a femoral line inserted and this is a rather dirty area if her white count continues to climb we will need to recheck blood cultures. Thus far she has not spiked any fevers. We'll continue to monitor (2) Bacteremia Is this a current diagnosis for this admission?: YesPlan: Management as per #1 (3) Acute cholecystitis Is this a current diagnosis for this admission?: YesPlan: Continue Zosyn. She is status post place percutaneous tube for drainage. (4) E-coli UTI Is this a current diagnosis for this admission?: YesPlan: Escherichia coli have been isolated and the patient's urine. Organism is susceptible to Zosyn. We will continue this and monitor. (5) Acute renal failure Qualifiers: Acute renal failure type: unspecified Qualified Code(s): N17.9 - Acute kidney failure, unspecified Is this a current diagnosis for this admission?: YesPlan: Much improved today. Continue to monitor. (6) Dehydration with hypernatremia Is this a current diagnosis for this admission?: YesPlan: Slightly improved today. Recheck sodium again tomorrow. (7) Hypokalemia Is this a current diagnosis for this admission?: Yes (8) Hypotension Qualifiers: Hypotension type: unspecified hypotension type Qualified Code(s): I95.9 - Hypotension, unspecified (9) Metabolic encephalopathy Is this a current diagnosis for this admission?: Yes
[2017-02-17] MEDS: FUROSEMIDE INJ/PF 20 MG/2 ML SDV IV SCH ×2 (09:31→21:26)
[2017-02-17] MEDS ORDERED: VANCOMYCIN HCL 0 MG in DEXTROSE 5%-WATER 250 ML IV NR (09:45)
[2017-02-17] MEDS ORDERED: LEVOFLOXACIN 500 MG/D5W RTU 500 MG/100 ML RTUPB IV ONE (11:00)
[2017-02-17] MEDS: DEXTROSE 5%-WATER 1000 ML 1,000 ML IV SCH ×2 (11:26→23:06)
[2017-02-17] MEDS: VANCOMYCIN HCL 750 MG in DEXTROSE 5%-WATER 250 ML IV SCH (12:38)
--- NOTE | 2017-02-17 18:45 | XCELERA REPORT ---
[address] [address] Transthoracic Echocardiogram Report Name: CHULA FINNEY Age: 52 yrs Gender: Female : 1965 Patient Status: Inpatient Patient Location: ICU\S\605\S\A Study Date: 02/17/2017 02:12 PM Height: 64 in Weight: 135 lb BSA: 1.7 m2 Procedure: A complete two-dimensional transthoracic echocardiogram was performed (2D, M-mode, spectral and color flow Doppler). The study was technically difficult with many images being suboptimal in quality. Reason For Study: rule out endocarditis Ordering Physician: KEYANNA COOPER Performed By: Nora Walker Interpretation Summary The study was technically difficult with many images being suboptimal in quality. The left ventricular ejection fraction is preserved. There is normal left ventricular wall thickness. The left ventricle is grossly normal size. Doppler measurements suggest impaired left ventricular relaxation, which is associated with grade I/IV or mild diastolic dysfunction Not all wall segments were well visualized. The right ventricle is grossly normal size. There is normal right ventricular wall thickness. The right atrium is normal. The left atrium is normal. There is a trace amount of mitral regurgitation There is no mitral valve stenosis. There is no aortic valve stenosis No aortic regurgitation is present. There is a trace or physiologic amount of tricuspid regurgitation Tricuspid regurgitation jet envelope not well defined to measure RV systolic pressure accurately. The aortic root is not well visualized but is probably normal size. The inferior vena cava was not well visualized There is no pericardial effusion. Vegetations cannot be R/O. Consider ALFREDO if clinically indicated. MMode/2D Measurements \T\ Calculations RVDd: 2.5 cm LVIDd: 3.2 cm FS: 41.0 % Ao root diam: 2.2 cm IVSd: 0.77 cm LVIDs: 1.9 cm EDV(Teich): 41.6 ml LVPWd: 0.78 cm ESV(Teich): 11.2 ml Ao root area: 3.8 cm2 EF(Teich): 73.1 % LA dimension: 2.5 cm Doppler Measurements \T\ Calculations MV E max mariaelena: MV P1/2t max mariaelena: Ao V2 max: PA V2 max: 86.4 cm/sec 85.4 cm/sec 88.3 cm/sec 66.6 cm/sec MV A max mariaelena: MV P1/2t: 39.4 msec Ao max PG: PA max P.2 cm/sec 3.1 mmHg 1.8 mmHg MV E/A: 0.85 MVA(P1/2t): 5.6 cm2 MV dec slope: 635.5 cm/sec2 MV dec time: 0.14 sec TR max mariaelena: 256.5 cm/sec TR max P.3 mmHg Left Ventricle The left ventricle is grossly normal size. There is normal left ventricular wall thickness. The left ventricular ejection fraction is preserved. Doppler measurements suggest impaired left ventricular relaxation, which is associated with grade I/IV or mild diastolic dysfunction. Not all wall segments were well visualized. Right Ventricle The right ventricle is grossly normal size. There is normal right ventricular wall thickness. The right ventricular systolic function is normal. Atria The right atrium is normal. The left atrium is normal. Interarterial septum not well visualized and not well dopplered. Cannot comment on ASD/PFO presence. Mitral Valve The mitral valve is not well visualized. There is no mitral valve stenosis. There is a trace amount of mitral regurgitation. Aortic Valve The aortic valve is not well visualized secondary to technical limitations. There is no aortic valve stenosis. No aortic regurgitation is present. Tricuspid Valve The tricuspid valve is not well visualized secondary to technical limitations. There is no tricuspid stenosis. There is a trace or physiologic amount of tricuspid regurgitation. Tricuspid regurgitation jet envelope not well defined to measure RV systolic pressure accurately. Pulmonic Valve The pulmonic valve is not well visualized. Great Vessels The aortic root is not well visualized but is probably normal size. The inferior vena cava was not well visualized. Effusions There is no pericardial effusion. Incidental Findings No definite vegetations noted but if clinical suspicion is high, then consider ALFREDO and multiple blood cultures. Consider ALFREDO if clinically indicated. : KEYANNA COOPER > Derek Keenan
[2017-02-18 04:45] LABS: ABSOLUTE BASOPHILS # (AUTO) 0.2 10^3/uL (0.0-0.2); ABSOLUTE EOSINOPHILS # (AUTO) 1.1 10^3/uL (0.0-0.6); ABSOLUTE LYMPHOCYTES (AUTO) 1.4 10^3/uL (0.5-4.7); ABSOLUTE MONOCYTES (AUTO) 0.8 10^3/uL (0.1-1.4); ABSOLUTE NEUT (AUTO) 14.3 10^3/uL (1.7-8.2); BASOPHILS % (AUTO) 0.9 % (0-2); HEMATOCRIT 29.5 % (36.0-47.0); HEMOGLOBIN 9.5 g/dL (12.0-15.5); LYMPHOCYTES % (AUTO) 7.7 % (13-45); MEAN CORPUSCULAR HEMOGLOBIN 31.6 pg (27.0-33.4); MEAN CORPUSCULAR HGB CONC 32.4 g/dL (32.0-36.0); MEAN CORPUSCULAR VOLUME 98 fl (80-97); MONOCYTES % (AUTO) 4.6 % (3-13); RED BLOOD COUNT 3.02 10^6/uL (3.72-5.28); RED CELL DISTRIBUTION WIDTH 23.7 % (11.5-14.0); SEGMENTED NEUTROPHILS % (AUTO) 80.8 % (42-78); WHITE BLOOD COUNT 17.7 10^3/uL (4.0-10.5)
[2017-02-18 04:55] LABS: ANION GAP 11 (5-19); BLOOD UREA NITROGEN 39 mg/dL (7-20); CALCIUM 8.1 mg/dL (8.4-10.2); CARBON DIOXIDE 19 mmol/L (22-30); CHLORIDE 116 mmol/L (98-107); CREATININE RESULT 1.67 mg/dL (0.52-1.25); GLUCOSE 92 mg/dL (75-110); MAGNESIUM 1.5 mg/dL (1.6-2.3); POTASSIUM 3.4 mmol/L (3.6-5.0); SODIUM 146.4 mmol/L (137-145)
[2017-02-18] MEDS: PIPERACILLIN SODIUM/TAZOBACTAM 3.375 GM in NORMAL SALINE 100 ML IV SCH ×4 (05:15→23:45)
[2017-02-18] MEDS: MAGNESIUM SULFATE 1 GM/D5W 100 ML IV SCH ×2 (06:41→08:07)
[2017-02-18] MEDS: POTASSIUM CHLORIDE 20 MEQ/50 ML RTU IV SCH ×2 (06:42→08:08)
--- NOTE | 2017-02-18 08:52 | PDOC PROGRESS REPORT ---
Subjective Progress Note for:: 02/17/17 Subjective:: This is a follow-up visit for sepsis secondary to acute cholecystitis and bacteremia. The patient was seen and was slightly more awake this morning. She at least had her eyes open but was not able to answer questions appropriately. Therefore, review of systems for the day I was not able to be accomplished. No acute events overnight. I do note that the patient's white count has continued to climb. She has been afebrile. Physical Exam Vital Signs: Temp Pulse Resp BP Pulse Ox 97.5 F 108 H 16 124/73 95 02/17/17 04:00 02/16/17 20:00 02/17/17 06:00 02/17/17 05:57 02/17/17 06:00 Intake & Output 02/16/17 02/17/17 02/18/17 06:59 06:59 06:59 Intake Total 3072 2589 Output Total 2525 930 Balance 547 1659 Weight 58.6 kg 61.4 kg PHYSICAL EXAM: GENERAL: This is a well-developed chronically ill-appearing white female looking older than her stated age resting in bed appearing unwell. HEENT: Normocephalic atraumatic trachea is midline HEART: Tachycardic. No murmurs rubs or gallops. LUNGS: Clear to auscultation bilaterally from the anterior perspective with equal rise and fall of the chest. ABDOMEN: Soft, nontender, slightly distended with hypoactive bowel sounds EXTREMITIES: No clubbing cyanosis or 1+ edema at the ankles bilaterally. 1+ peripheral pulses. NEURO: Able to be aroused, disoriented. Full neurologic assessment was not able to be accomplished secondary to mental status. LINES: Right femoral appears clean dry and intact : Loja catheter in place Results Laboratory Results: 02/17/17 04:35 02/17/17 04:35 02/16/17 02/16/17 02/17/17 16:40 16:40 04:35 WBC 16.3 H RBC 3.24 L Hgb 10.2 L Hct 30.8 L MCV 95 MCH 31.3 MCHC 33.0 RDW 23.8 H Plt Count 70 L Seg Neutrophils % 81.1 H Lymphocytes % 7.8 L Monocytes % 3.4 Eosinophils % 6.9 H Basophils % 0.8 Absolute Neutrophils 13.2 H Absolute Lymphocytes 1.3 Absolute Monocytes 0.5 Absolute Eosinophils 1.1 H Absolute Basophils 0.1 Sodium 151.2 H 152.3 H Potassium 3.9 4.3 Chloride 119 H 121 H Carbon Dioxide 21 L 20 L Anion Gap 11 11 BUN 49 H 46 H Creatinine 1.83 H 1.77 H Est GFR ( Amer) 35 L 36 L Est GFR (Non-Af Amer) 29 L 30 L Glucose 138 H 120 H Calcium 8.1 L 8.3 L Magnesium 1.4 L Total Bilirubin AST ALT Alkaline Phosphatase Total Protein Albumin 02/17/17 02/17/17 04:35 04:35 WBC 17.4 H RBC 3.19 L Hgb 10.1 L Hct 31.0 L MCV 97 MCH 31.5 MCHC 32.5 RDW 24.9 H Plt Count 79 L Seg Neutrophils % 81.1 H Lymphocytes % 8.9 L Monocytes % 2.7 L Eosinophils % 6.2 H Basophils % 1.1 Absolute Neutrophils 14.1 H Absolute Lymphocytes 1.6 Absolute Monocytes 0.5 Absolute Eosinophils 1.1 H Absolute Basophils 0.2 Sodium Potassium Chloride Carbon Dioxide Anion Gap BUN Creatinine Est GFR ( Amer) Est GFR (Non-Af Amer) Glucose Calcium Magnesium Total Bilirubin 16.9 H AST 45 H ALT 26 Alkaline Phosphatase 150 H Total Protein 5.6 L Albumin 2.3 L Impressions: Chest X-Ray 02/12/17 17:37 IMPRESSION: NO ACUTE RADIOGRAPHIC FINDING IN THE CHEST. Abdomen/Pelvis CT 02/12/17 18:04 IMPRESSION: BILATERAL NEPHROLITHIASIS WITHOUT LOWER URINARY TRACT STONES OR HYDRONEPHROSIS. HEPATOMEGALY IN THE SETTING OF SEVERE HEPATIC STEATOSIS COMPATIBLE WITH HISTORY OF LIVER FAILURE. Abdomen Ultrasound 02/14/17 08:26 IMPRESSION: Diffusely echogenic liver from diffuse fatty infiltration hepatocellular disease Gallbladder filled with sludge, definite gallbladder wall thickening and pericholecystic fluid. Findings worrisome for cholecystitis Percutaneous Drainage 02/15/17 08:00 IMPRESSION: CT GUIDED CHOLECYSTOSTOMY TUBE PLACEMENT. NO IMMEDIATE COMPLICATIONS. 8 [place] INDWELLING CATHETER WITH LOCKING PIGTAIL IN THE GALLBLADDER. Assessment & Plan - Diagnosis (1) Severe sepsis with septic shock Plan: Severe sepsis with shock secondary to acute cholecystitis and MSSA bacteremia. Patient is status post pressor support. Both organisms shows ability to Zosyn. However, the patient's white count steadily climbing. Vancomycin was discontinued yesterday. Order recheck chest x-ray today to make sure she is not developing any underlying pneumonia. She also had Escherichia coli UTIs well also susceptible to Zosyn. I think that we need to broaden her coverage back out. Ongoing triple antibiotic coverage for now. Chest x-ray is unrevealing will likely need to scan her abdomen again. Her percutaneous drain is still draining but minimally. (2) Bacteremia Is this a current diagnosis for this admission?: YesPlan: Bacteremia secondary to MSSA and Escherichia coli. Management as per #1 (3) Acute cholecystitis Is this a current diagnosis for this admission?: YesPlan: Continue Zosyn and broaden out antibiotic coverage. She is status post place percutaneous tube for drainage. Further management as per #1 (4) E-coli UTI Is this a current diagnosis for this admission?: YesPlan: Escherichia coli have been isolated and the patient's urine. Organism is susceptible to Zosyn. We will continue this and monitor. (5) Acute renal failure Qualifiers: Acute renal failure type: unspecified Qualified Code(s): N17.9 - Acute kidney failure, unspecified Is this a current diagnosis for this admission?: YesPlan: Secondary to underlying sepsis. Continues to improve. Continue to monitor. (6) Dehydration with hypernatremia Is this a current diagnosis for this admission?: YesPlan: Slightly worsened today. Patient has been chronically high. Will change out her fluids to D5 water (7) Hypokalemia Is this a current diagnosis for this admission?: YesPlan: Potassium replaced. We'll repeat K this afternoon (8) Metabolic encephalopathy Is this a current diagnosis for this admission?: YesPlan: Patient is delirious. This is secondary to underlying sepsis. Hopefully this will clear as she improves. (9) Alcoholic liver failure Is this a current diagnosis for this admission?: Yes (10) Anemia Qualifiers: Anemia type: other cause Other causes of anemia: chronic disease, other Qualified Code(s): D63.8 - Anemia in other chronic diseases classified elsewhere Plan: Stable (11) Hypomagnesemia Plan: Magnesium replaced - Time Critical Time spent with patient: 15-24 minutes - Inpatient Certification Medical Necessity: Need Close Monitoring Due to Risk of Patient Decompensation
[2017-02-18] MEDS ORDERED: MAGNESIUM SULFATE/D5W 100 ML IV ONE (09:00)
[2017-02-18] MEDS ORDERED: POTASSI CL 20 MEQ/50 ML RIDER 50 ML IV ONE (09:00)
--- NOTE | 2017-02-18 09:15 | PDOC PROGRESS REPORT ---
Subjective Progress Note for:: 02/18/17 Subjective:: This is a follow-up visit for sepsis secondary to acute cholecystitis and bacteremia. The patient was awake at the bedside today. She responded hello to my salutation and was able to carry on a conversation this morning. She denies any abdominal pain. She states that she had a restless night and did not get much sleep. This largely due to nervousness. We discussed her current medical condition. At this point the patient cannot remember how she got here or the last thing that happened to her. She denies any shortness of breath or chest pain. She states that her decision maker would be a long-term boyfriend by the name of Faheem Miguel A. She is hungry and would like to eat. Physical Exam Vital Signs: Temp Pulse Resp BP Pulse Ox 97.7 F 90 14 96/79 L 97 02/18/17 08:00 02/18/17 08:00 02/18/17 08:00 02/18/17 08:00 02/18/17 08:00 Intake & Output 02/17/17 02/18/17 02/19/17 06:59 06:59 06:59 Intake Total 2589 3073 Output Total 930 1265 40 Balance 1659 1808 -40 Weight 61.4 kg 59.9 kg PHYSICAL EXAM: GENERAL: This is a well-developed ill appearing white female resting in no acute distress. HEART: Regular rate and rhythm. No murmurs rubs or gallops. LUNGS: Clear to auscultation anteriorly bilaterally with equal rise and fall of the chest. ABDOMEN: Soft, nontender, much less distended today with normoactive bowel sounds. Percutaneous drain in place. It is draining bile. EXTREMITIES: No clubbing cyanosis or edema. CELSO hose are in place. 1+ peripheral pulses. NEURO: Awake, alert, oriented to self. Weak cough. Speech is garbled at times , however, the patient can be generally understood. Cranial nerves II through XII grossly intact. PSYCH: Normal affect. Patient lacks insight. LINES: Right femoral clean dry and intact : Loja catheter is in place and draining jim colored urine Results Laboratory Results: 02/18/17 04:20 02/18/17 04:20 02/17/17 02/17/17 02/18/17 10:00 12:30 04:20 WBC RBC Hgb Hct MCV MCH MCHC RDW Plt Count Seg Neutrophils % Lymphocytes % Monocytes % Eosinophils % Basophils % Absolute Neutrophils Absolute Lymphocytes Absolute Monocytes Absolute Eosinophils Absolute Basophils Sodium 146.4 H Potassium 3.4 L Chloride 116 H Carbon Dioxide 19 L Anion Gap 11 BUN 39 H Creatinine 1.67 H Est GFR ( Amer) 39 L Est GFR (Non-Af Amer) 32 L Glucose 92 Lactic Acid 1.5 Calcium 8.1 L Magnesium 1.9 1.5 L 02/18/17 04:20 WBC 17.7 H RBC 3.02 L Hgb 9.5 L Hct 29.5 L MCV 98 H MCH 31.6 MCHC 32.4 RDW 23.7 H Plt Count 103 L Seg Neutrophils % 80.8 H Lymphocytes % 7.7 L Monocytes % 4.6 Eosinophils % 6.0 Basophils % 0.9 Absolute Neutrophils 14.3 H Absolute Lymphocytes 1.4 Absolute Monocytes 0.8 Absolute Eosinophils 1.1 H Absolute Basophils 0.2 Sodium Potassium Chloride Carbon Dioxide Anion Gap BUN Creatinine Est GFR ( Amer) Est GFR (Non-Af Amer) Glucose Lactic Acid Calcium Magnesium 02/14/17 04:22 Blood Blood Culture - Final Staphylococcus Aureus Impressions: Abdomen/Pelvis CT 02/12/17 18:04 IMPRESSION: BILATERAL NEPHROLITHIASIS WITHOUT LOWER URINARY TRACT STONES OR HYDRONEPHROSIS. HEPATOMEGALY IN THE SETTING OF SEVERE HEPATIC STEATOSIS COMPATIBLE WITH HISTORY OF LIVER FAILURE. Abdomen Ultrasound 02/14/17 08:26 IMPRESSION: Diffusely echogenic liver from diffuse fatty infiltration hepatocellular disease Gallbladder filled with sludge, definite gallbladder wall thickening and pericholecystic fluid. Findings worrisome for cholecystitis Percutaneous Drainage 02/15/17 08:00 IMPRESSION: CT GUIDED CHOLECYSTOSTOMY TUBE PLACEMENT. NO IMMEDIATE COMPLICATIONS. 8 [place] INDWELLING CATHETER WITH LOCKING PIGTAIL IN THE GALLBLADDER. Chest X-Ray 02/18/17 07:00 IMPRESSION: NO ACUTE RADIOGRAPHIC FINDING IN THE CHEST. Assessment & Plan - Diagnosis (1) Severe sepsis with septic shock Plan: Severe sepsis with shock secondary to acute cholecystitis, Escherichia coli UTI and MSSA and Escherichia coli bacteremia. Patient is status post pressor support. Both organisms show susceptibility to Zosyn. However, the patient's white count was steadily climbing. As of today it seems to have plateaued. It is currently 17. Chest x-ray is clear. Continue triple coverage another day. Repeat lab work in the morning. Depending on what her white blood cell count is doing we will try narrow her antibiotics again tomorrow. I will defer reimaging of her abdomen for now since clinically she seems improved. As per nursing staff her percutaneous drain seems to be flushing well. (2) Bacteremia Is this a current diagnosis for this admission?: YesPlan: Bacteremia secondary to MSSA and Escherichia coli. Management as per #1 (3) Acute cholecystitis Is this a current diagnosis for this admission?: YesPlan: Continue antibiotic coverage for now. She is status post place percutaneous tube for drainage. Further management as per #1 (4) E-coli UTI Is this a current diagnosis for this admission?: YesPlan: Continue current antibiotics for now. Management as per #1 (5) Acute renal failure Qualifiers: Acute renal failure type: unspecified Qualified Code(s): N17.9 - Acute kidney failure, unspecified Is this a current diagnosis for this admission?: YesPlan: Secondary to underlying sepsis. Continues to improve. Continue to monitor. (6) Dehydration with hypernatremia Is this a current diagnosis for this admission?: YesPlan: Hypernatremia is improved today. Continue D5 water for today. Reassess changing fluids tomorrow. (7) Hypokalemia Is this a current diagnosis for this admission?: YesPlan: Potassium replaced again today. (8) Metabolic encephalopathy Is this a current diagnosis for this admission?: YesPlan: Much improved today. (10) Anemia Qualifiers: Anemia type: other cause Other causes of anemia: chronic disease, other Qualified Code(s): D63.8 - Anemia in other chronic diseases classified elsewhere Plan: Stable (11) Hypomagnesemia Plan: Magnesium replaced again today. - Time Critical Time spent with patient: 25-34 minutes - Inpatient Certification Medical Necessity: Need Close Monitoring Due to Risk of Patient Decompensation - Fully the patient will remain stable and be able to be changed to [facility] [place] care tomorrow
[2017-02-18] MEDS: LEVOFLOXACIN 250 MG/D5W RTU 250 MG/50 ML RTUPB IV SCH (14:52)
[2017-02-18] MEDS: VANCOMYCIN HCL 750 MG in DEXTROSE 5%-WATER 250 ML IV SCH (14:53)
[2017-02-18] MEDS: DEXTROSE 5%-WATER 1000 ML 1,000 ML IV SCH ×2 (14:54→23:45)
[2017-02-18] MEDS: FUROSEMIDE INJ/PF 20 MG/2 ML SDV IV SCH ×2 (14:54→21:34)
[2017-02-18 15:50] LABS: BLOOD UREA NITROGEN 37 mg/dL (7-20); CALCIUM 8.6 mg/dL (8.4-10.2); CREATININE RESULT 1.64 mg/dL (0.52-1.25); GLUCOSE 75 mg/dL (75-110)
[2017-02-18 15:51] LABS: ANION GAP 14 (5-19); CARBON DIOXIDE 18 mmol/L (22-30); CHLORIDE 114 mmol/L (98-107); POTASSIUM 3.9 mmol/L (3.6-5.0); SODIUM 145.7 mmol/L (137-145)
[2017-02-19 05:23] LABS: ANION GAP 14 (5-19); BLOOD UREA NITROGEN 35 mg/dL (7-20); CALCIUM 7.9 mg/dL (8.4-10.2); CARBON DIOXIDE 17 mmol/L (22-30); CHLORIDE 110 mmol/L (98-107); CREATININE RESULT 1.51 mg/dL (0.52-1.25); GLUCOSE 94 mg/dL (75-110); SODIUM 140.7 mmol/L (137-145)
[2017-02-19 05:35] LABS: POTASSIUM 2.9 mmol/L (3.6-5.0)
[2017-02-19] MEDS: PIPERACILLIN SODIUM/TAZOBACTAM 3.375 GM in NORMAL SALINE 100 ML IV SCH ×3 (06:15→18:40)
[2017-02-19] MEDS: POTASSI CL 20 MEQ/50 ML RIDER 20 MEQ/50 ML RTUPB IV SCH ×3 (06:16→10:23)
[2017-02-19 08:51] LABS: HEMATOCRIT 31.6 % (36.0-47.0); HEMOGLOBIN 10.2 g/dL (12.0-15.5); MEAN CORPUSCULAR HGB CONC 32.2 g/dL (32.0-36.0); MEAN CORPUSCULAR VOLUME 96 fl (80-97); RED BLOOD COUNT 3.28 10^6/uL (3.72-5.28); RED CELL DISTRIBUTION WIDTH 23.1 % (11.5-14.0); WHITE BLOOD COUNT 21.3 10^3/uL (4.0-10.5)
[2017-02-19] MEDS ORDERED: 1/2 NORMAL SALINE 1,000 ML with POTASSIUM CHLORIDE 20 MEQ IV PRN ×2 (08:56)
--- NOTE | 2017-02-19 09:04 | PDOC PROGRESS REPORT ---
Subjective Progress Note for:: 02/19/17 Subjective:: This is a follow-up visit for sepsis secondary to acute cholecystitis and bacteremia. Patient is awake and alert. She states she tolerated clear liquids yesterday. She has a breakfast tray at the bedside and has not started that yet. I interviewed her as she was getting cleaned up after a bowel movement. At that time she had no complaints of chest pain or shortness of breath. She denied abdominal pain. Physical Exam Vital Signs: Temp Pulse Resp BP Pulse Ox 97.3 F 112 H 20 119/83 97 02/19/17 08:00 02/19/17 08:00 02/19/17 08:00 02/19/17 08:00 02/19/17 08:00 Intake & Output 02/18/17 02/19/17 02/20/17 06:59 06:59 06:59 Intake Total 3073 3253 Output Total 1265 945 150 Balance 1808 2308 -150 Weight 59.9 kg 64.6 kg PHYSICAL EXAM: GENERAL: This is a well-developed jaundiced and ill appearing white female resting in no acute distress. HEENT: Normocephalic atraumatic. trachea is midline. Dentition is quite poor with broken off teeth. Scleral icterus is present. HEART: Regular rate and rhythm. No murmurs rubs or gallops. LUNGS: Clear to auscultation anteriorly and posteriorly bilaterally with equal rise and fall of the chest. ABDOMEN: Soft, nontender, nondistended with normoactive bowel sounds. Percutaneous drain in place. It is draining bile. EXTREMITIES: No clubbing cyanosis or edema. CELSO hose are in place. 1+ peripheral pulses. NEURO: Awake, alert, oriented to self. Speech is garbled at times, however, the patient can be generally understood. Cranial nerves II through XII grossly intact. SKIN: Excoriation in the medial thighs with satellite lesions reflective obese. Right buttock with skin multiple avulsions in an oval or circular pattern PSYCH: Normal affect. Patient lacks insight. LINES: Right femoral clean dry and intact : Loja catheter is in place and draining jim colored urine Results Laboratory Results: 02/19/17 04:50 02/18/17 02/19/17 14:45 04:50 Sodium 145.7 H 140.7 Potassium 3.9 2.9 L* D Chloride 114 H 110 H Carbon Dioxide 18 L 17 L Anion Gap 14 14 BUN 37 H 35 H Creatinine 1.64 H 1.51 H Est GFR ( Amer) 40 L 44 L Est GFR (Non-Af Amer) 33 L 36 L Glucose 75 94 Calcium 8.6 7.9 L Magnesium 2.0 02/14/17 07:35 Blood Blood Culture - Final NO GROWTH IN 5 DAYS Impressions: Abdomen/Pelvis CT 02/12/17 18:04 IMPRESSION: BILATERAL NEPHROLITHIASIS WITHOUT LOWER URINARY TRACT STONES OR HYDRONEPHROSIS. HEPATOMEGALY IN THE SETTING OF SEVERE HEPATIC STEATOSIS COMPATIBLE WITH HISTORY OF LIVER FAILURE. Abdomen Ultrasound 02/14/17 08:26 IMPRESSION: Diffusely echogenic liver from diffuse fatty infiltration hepatocellular disease Gallbladder filled with sludge, definite gallbladder wall thickening and pericholecystic fluid. Findings worrisome for cholecystitis Percutaneous Drainage 02/15/17 08:00 IMPRESSION: CT GUIDED CHOLECYSTOSTOMY TUBE PLACEMENT. NO IMMEDIATE COMPLICATIONS. 8 [place] INDWELLING CATHETER WITH LOCKING PIGTAIL IN THE GALLBLADDER. Chest X-Ray 02/18/17 07:00 IMPRESSION: NO ACUTE RADIOGRAPHIC FINDING IN THE CHEST. Assessment & Plan - Diagnosis (1) Severe sepsis with septic shock Plan: Severe sepsis with shock secondary to acute cholecystitis, Escherichia coli UTI and MSSA and Escherichia coli bacteremia. Patient is status post pressor support. Both organisms show susceptibility to Zosyn. However, the patient's white count was steadily climbing. CBC pending. Chest x-ray is clear. Continue triple coverage for now. Repeat lab work in the morning. Depending on what her white blood cell count is doing we will try narrow her antibiotics again tomorrow. I will defer reimaging of her abdomen for now since clinically she seems improved. As per nursing staff her percutaneous drain seems to be flushing well. (2) Bacteremia Plan: Bacteremia secondary to MSSA and Escherichia coli. Management as per #1 (3) Acute cholecystitis Plan: Continue antibiotic coverage for now. She is status post place percutaneous tube for drainage. Further management as per #1. Repeat LFTs (4) E-coli UTI Plan: Continue current antibiotics for now. Management as per #1 (5) Acute renal failure Qualifiers: Acute renal failure type: unspecified Qualified Code(s): N17.9 - Acute kidney failure, unspecified Plan: Secondary to underlying sepsis. Continues to improve. Continue to monitor. (6) Dehydration with hypernatremia Plan: Hypernatremia is resolved. Change fluids back to half normal saline with 20 mEq of potassium (7) Hypokalemia Plan: Potassium replaced again today. (8) Metabolic encephalopathy Plan: Much improved today. (10) Anemia Qualifiers: Anemia type: other cause Other causes of anemia: chronic disease, other Qualified Code(s): D63.8 - Anemia in other chronic diseases classified elsewhere Plan: Stable (11) Hypomagnesemia Plan: Magnesium level pending - Time Critical Time spent with patient: 15-24 minutes - Patient may step down to [facility] [place] - Inpatient Certification Medical Necessity: Need Close Monitoring Due to Risk of Patient Decompensation
[2017-02-19 09:08] LABS: BAND NEUTROPHILS % (MANUAL) 2 % (3-5); BASOPHILS % (MANUAL) 1 % (0-2); EOSINOPHILS % (MANUAL) 4 % (0-6); LYMPHOCYTES % (MANUAL) 12 % (13-45); TOTAL CELLS COUNTED 100
[2017-02-19 09:12] LABS: ANISOCYTOSIS 2+; BURR CELLS SLIGHT; OVALOCYTES SLIGHT; POIKILOCYTOSIS 1+; SCHISTOCYTES SLIGHT; TEAR DROP CELLS SLIGHT; TOXIC GRANULATION 1+; TOXIC VACUOLATION PRESENT
[2017-02-19 09:28] LABS: ALANINE AMINOTRANSFERASE 25 U/L (9-52); ALBUMIN 2.1 g/dL (3.5-5.0); ALKALINE PHOSPHATASE 157 U/L (38-126); ASPARTATE AMINO TRANSFERASE 38 U/L (14-36); BILIRUBIN,DIRECT 13.8 mg/dL (0.0-0.4); TOTAL PROTEIN 5.1 g/dL (6.3-8.2)
[2017-02-19] MEDS: LEVOFLOXACIN 250 MG/D5W RTU 250 MG/50 ML RTUPB IV SCH (10:23)
[2017-02-19] MEDS: FUROSEMIDE INJ/PF 20 MG/2 ML SDV IV SCH ×2 (10:24→21:52)
[2017-02-19] MEDS: VANCOMYCIN HCL 750 MG in DEXTROSE 5%-WATER 250 ML IV SCH (16:00)
[2017-02-19] MEDS: NYSTATIN CREAM 15 GM TP SCH (21:55)
[2017-02-20] MEDS: PIPERACILLIN SODIUM/TAZOBACTAM 3.375 GM in NORMAL SALINE 100 ML IV SCH ×5 (00:07→23:25)
[2017-02-20] MEDS: POTASSI CL 20 MEQ/1/2NS 1L 1,000 ML IV PRN (04:13)
[2017-02-20 07:42] LABS: HEMATOCRIT 28.8 % (36.0-47.0); HEMOGLOBIN 9.4 g/dL (12.0-15.5); HGB HCT DIFFERENCE -0.6; MEAN CORPUSCULAR HEMOGLOBIN 31.5 pg (27.0-33.4); MEAN CORPUSCULAR HGB CONC 32.6 g/dL (32.0-36.0); MEAN CORPUSCULAR VOLUME 97 fl (80-97); RED BLOOD COUNT 2.98 10^6/uL (3.72-5.28); RED CELL DISTRIBUTION WIDTH 22.2 % (11.5-14.0); WHITE BLOOD COUNT 20.6 10^3/uL (4.0-10.5)
[2017-02-20 08:01] LABS: ANION GAP 14 (5-19); BLOOD UREA NITROGEN 32 mg/dL (7-20); CALCIUM 8.1 mg/dL (8.4-10.2); CARBON DIOXIDE 16 mmol/L (22-30); CHLORIDE 111 mmol/L (98-107); CREATININE RESULT 1.37 mg/dL (0.52-1.25); GLUCOSE 63 mg/dL (75-110); MAGNESIUM 1.3 mg/dL (1.6-2.3); POTASSIUM 3.1 mmol/L (3.6-5.0); SODIUM 140.5 mmol/L (137-145)
[2017-02-20 08:04] LABS: BAND NEUTROPHILS % (MANUAL) 7 % (3-5); BASOPHILS % (MANUAL) 0 % (0-2); EOSINOPHILS % (MANUAL) 0 % (0-6); LYMPHOCYTES % (MANUAL) 3 % (13-45); TOTAL CELLS COUNTED 100
[2017-02-20 08:13] LABS: HYPOCHROMASIA SLIGHT; POLYCHROMASIA SLIGHT
[2017-02-20] MEDS ORDERED: MAGNESIUM SULFATE/D5W 1 GM/100 ML RTUPB IV ONE (09:30)
[2017-02-20] MEDS ORDERED: POTASSI CL 20 MEQ/50 ML RIDER 20 MEQ/50 ML RTUPB IV ONE ×2 (10:00→15:07)
[2017-02-20] MEDS: LEVOFLOXACIN 250 MG/D5W RTU 250 MG/50 ML RTUPB IV SCH (11:32)
[2017-02-20] MEDS: MAGNESIUM OXIDE 400 MG TABLET PO SCH ×2 (11:35→17:06)
[2017-02-20] MEDS: FUROSEMIDE INJ/PF 20 MG/2 ML SDV IV SCH ×2 (11:35→21:37)
[2017-02-20 13:56] LABS: CREATININE RESULT 1.39 mg/dL (0.52-1.25)
[2017-02-20] MEDS: VANCOMYCIN HCL 750 MG in DEXTROSE 5%-WATER 250 ML IV SCH (17:06)
[2017-02-20] MEDS: NYSTATIN CREAM 15 GM TP SCH ×2 (17:07→21:38)
[2017-02-21] MEDS: POTASSI CL 20 MEQ/1/2NS 1L 1,000 ML IV PRN (02:04)
[2017-02-21] MEDS: PIPERACILLIN SODIUM/TAZOBACTAM 3.375 GM in NORMAL SALINE 100 ML IV SCH ×4 (06:12→23:26)
[2017-02-21 06:54] LABS: ANION GAP 12 (5-19); BLOOD UREA NITROGEN 30 mg/dL (7-20); CALCIUM 8.2 mg/dL (8.4-10.2); CARBON DIOXIDE 15 mmol/L (22-30); CHLORIDE 112 mmol/L (98-107); CREATININE RESULT 1.34 mg/dL (0.52-1.25); GLUCOSE 78 mg/dL (75-110); POTASSIUM 3.8 mmol/L (3.6-5.0); SODIUM 139.3 mmol/L (137-145)
--- NOTE | 2017-02-21 09:39 | PDOC PROGRESS REPORT ---
Subjective Progress Note for:: 02/21/17 Subjective:: This is a follow-up visit for sepsis secondary to acute cholecystitis and bacteremia. Patient is awake and alert. She complains of right hip pain. She is having no trouble with her clear liquid diet. No acute events overnight. Physical Exam Vital Signs: Temp Pulse Resp BP Pulse Ox 97.5 F 107 H 14 116/79 95 02/21/17 08:17 02/21/17 08:17 02/21/17 08:17 02/21/17 08:17 02/21/17 08:17 Intake & Output 02/20/17 02/21/17 02/22/17 06:59 06:59 06:59 Intake Total 2240 3090 Output Total 1110 1400 Balance 1130 1690 Weight 66.9 kg 71.9 kg PHYSICAL EXAM: GENERAL: This is a well-developed jaundiced and ill appearing white female resting in no acute distress. HEENT: Normocephalic atraumatic. trachea is midline. Dentition is quite poor with broken off teeth. Scleral icterus is present. HEART: Regular rate and rhythm. Questionable 1/6 systolic ejection murmur. No Rubs or gallops. LUNGS: Clear to auscultation anteriorly bilaterally with equal rise and fall of the chest. ABDOMEN: Soft, nontender, nondistended with normoactive bowel sounds. Percutaneous drain in place. It is draining bile. EXTREMITIES: No clubbing cyanosis or edema. CELSO hose are in place. 1+ peripheral pulses. NEURO: Awake, alert, oriented to self. Speech is garbled at times, however, the patient can be generally understood. Cranial nerves II through XII grossly intact. PSYCH: Normal affect. Patient lacks insight. LINES: Right femoral clean dry and intact : Loja catheter is in place and draining jim colored urine Results Laboratory Results: 02/20/17 06:40 02/21/17 06:15 02/20/17 02/20/17 02/21/17 13:05 13:05 06:15 Sodium 139.3 Potassium 3.0 L* 3.8 Chloride 112 H Carbon Dioxide 15 L Anion Gap 12 BUN 30 H Creatinine 1.39 H 1.34 H Est GFR ( Amer) 48 L 50 L Est GFR (Non-Af Amer) 40 L 42 L Glucose 78 Lactic Acid Calcium 8.2 L 02/21/17 08:45 Sodium Potassium Chloride Carbon Dioxide Anion Gap BUN Creatinine Est GFR ( Amer) Est GFR (Non-Af Amer) Glucose Lactic Acid 1.1 Calcium 02/19/17 23:30 Loja Catheter Urine Culture - Final C.albicans/C.dubliniensis 02/15/17 12:30 Blood Blood Culture - Final NO GROWTH IN 5 DAYS 02/15/17 11:30 Blood Blood Culture - Final NO GROWTH IN 5 DAYS Impressions: Abdomen Ultrasound 02/14/17 08:26 IMPRESSION: Diffusely echogenic liver from diffuse fatty infiltration hepatocellular disease Gallbladder filled with sludge, definite gallbladder wall thickening and pericholecystic fluid. Findings worrisome for cholecystitis Percutaneous Drainage 02/15/17 08:00 IMPRESSION: CT GUIDED CHOLECYSTOSTOMY TUBE PLACEMENT. NO IMMEDIATE COMPLICATIONS. 8 [place] INDWELLING CATHETER WITH LOCKING PIGTAIL IN THE GALLBLADDER. Chest X-Ray 02/18/17 07:00 IMPRESSION: NO ACUTE RADIOGRAPHIC FINDING IN THE CHEST. Abdomen/Pelvis CT 02/19/17 00:00 IMPRESSION: Interval development of generalized ascites most prominent perihepatic. The gallbladder is completely decompressed and there is pericholecystic fluid. No focal walled off abscess collection. Indwelling catheter at least partially within the gallbladder. Because the gallbladder is completely decompressed, it is not possible to determine if some of the catheter holes are outside the gallbladder. Large bilateral pleural effusions with basilar atelectasis. Assessment & Plan - Diagnosis (1) Severe sepsis with septic shock Plan: Severe sepsis with shock secondary to acute cholecystitis, Escherichia coli UTI and MSSA and Escherichia coli bacteremia. Patient is status post pressor support. Both organisms show susceptibility to Zosyn. However, the patient's white count was steadily climbing. CBC pending this morning. Chest x-ray is clear. Continue triple coverage for now. Repeat lab work in the morning. Depending on what her white blood cell count is doing we will try narrow her antibiotics.. Repeat CT of the abdomen showed interval ascitic fluid development, bilateral pleural effusion at the bases, and a decompressed gallbladder. (2) Bacteremia Plan: Bacteremia secondary to MSSA and Escherichia coli. Management as per #1 (3) Acute cholecystitis Plan: Continue antibiotic coverage for now. She is status post place percutaneous tube for drainage. Further management as per #1. Repeat LFTs (4) E-coli UTI Plan: Continue current antibiotics for now. Management as per #1 (5) Acute renal failure Qualifiers: Acute renal failure type: unspecified Qualified Code(s): N17.9 - Acute kidney failure, unspecified Plan: Secondary to underlying sepsis. Continues to improve. Continue to monitor. (6) Dehydration with hypernatremia Plan: Hypernatremia is resolved. (7) Hypokalemia Plan: Potassium replaced and resolved for now (8) Metabolic encephalopathy Plan: Improved overall. Patient still lacks insight. (9) Alcoholic liver failure Plan: Refrain from further alcohol consumption. Patient with underlying severe fatty liver disease bordering cirrhosis. Now she has ascites. (10) Anemia Qualifiers: Anemia type: other cause Other causes of anemia: chronic disease, other Qualified Code(s): D63.8 - Anemia in other chronic diseases classified elsewhere Plan: Stable (11) Hypomagnesemia Plan: Magnesium level pending this morning. We will replace as necessary - Time Time Spent with patient: 15-24 minutes - Inpatient Certification Medical Necessity: Need Close Monitoring Due to Risk of Patient Decompensation
[2017-02-21 10:47] LABS: HEMATOCRIT 26.4 % (36.0-47.0); HEMOGLOBIN 8.5 g/dL (12.0-15.5); HGB HCT DIFFERENCE -0.9; MEAN CORPUSCULAR HEMOGLOBIN 31.1 pg (27.0-33.4); MEAN CORPUSCULAR HGB CONC 32.2 g/dL (32.0-36.0); MEAN CORPUSCULAR VOLUME 97 fl (80-97); RED BLOOD COUNT 2.73 10^6/uL (3.72-5.28); RED CELL DISTRIBUTION WIDTH 21.7 % (11.5-14.0); WHITE BLOOD COUNT 24.6 10^3/uL (4.0-10.5)
[2017-02-21 10:52] LABS: ALANINE AMINOTRANSFERASE 21 U/L (9-52); ALKALINE PHOSPHATASE 141 U/L (38-126); ASPARTATE AMINO TRANSFERASE 38 U/L (14-36); BILIRUBIN,DIRECT 13.1 mg/dL (0.0-0.4); BILIRUBIN,TOTAL 15.2 mg/dL (0.2-1.3); MAGNESIUM 1.5 mg/dL (1.6-2.3); TOTAL PROTEIN 5.4 g/dL (6.3-8.2)
[2017-02-21 11:06] LABS: BAND NEUTROPHILS % (MANUAL) 3 % (3-5); BASOPHILS % (MANUAL) 0 % (0-2); EOSINOPHILS % (MANUAL) 0 % (0-6); LYMPHOCYTES % (MANUAL) 8 % (13-45); TOTAL CELLS COUNTED 100
[2017-02-21 11:08] LABS: ANISOCYTOSIS 2+; HELMET CELLS SLIGHT; HYPOCHROMASIA SLIGHT; OVALOCYTES SLIGHT; POIKILOCYTOSIS 1+; TEAR DROP CELLS SLIGHT; TOXIC GRANULATION SLIGHT
[2017-02-21] MEDS: LEVOFLOXACIN 250 MG/D5W RTU 250 MG/50 ML RTUPB IV SCH (12:11)
[2017-02-21] MEDS: DEXTROSE 5%-WATER 1000 ML 1,000 ML with SODIUM BICARBONATE 100 MEQ IV PRN ×2 (12:11)
[2017-02-21] MEDS: NYSTATIN CREAM 15 GM TP SCH ×2 (12:12→21:20)
[2017-02-21] MEDS: MAGNESIUM OXIDE 400 MG TABLET PO SCH ×2 (12:12→18:57)
[2017-02-21] MEDS: FUROSEMIDE INJ/PF 20 MG/2 ML SDV IV SCH ×2 (12:12→18:57)
[2017-02-21] MEDS: VANCOMYCIN HCL 750 MG in DEXTROSE 5%-WATER 250 ML IV SCH (12:15)
[2017-02-21] MEDS: FLUCONAZOLE 100 MG TABLET PO SCH (18:57)
--- NOTE | 2017-02-21 19:52 | PDOC CONSULTATION ---
Consultation Consult Date: 02/21/17 Attending physician:: CORONA GRACIA Consult reason:: jaundice, cholecystitis, liver failure , leucocytosis History of Present Illness Admission Date/PCP: 02/12/17 18:11 JUSTINO VALLE, Patient complains of: weakeness, severe diarrhea, minimal abdominal pain History of Present Illness: CHULA FINNEY is a 52 year old female year old female with history of alcohol abuse presents to the ED via EMS after reportedly being in bed jaundiced for the past 3 weeks. ED nursing staff state that the patient was brought in covered in her own feces and urine. She was found to have jaundice with Bilirubin of 13-[address] revealed, ascitis, distended and thickened gall bladder, had percutaneous cholecystostomy, which is draing bilious fluid, surgery reconcult today because of leucocytosis and patient not doing well. Patient c/o weakness and diarrhea. Tolerating diet. Past Medical History Cardiac Medical History: Reports: Myocardial Infarction - 2011, Hypertension Hematology: Reports: Anemia Past Surgical History Past Surgical History: Reports: Tubal Ligation Social History Lives with: Other - Unknown patient is not answering questions appropriately No information can be obtained Smoking Status: Unknown if Ever Smoked - Advance Directive Resuscitation Status: Full Code Family History Family History: Arthritis, CAD, CVA, Hyperlipidemia, Hypertension, Malignancy Medication/Allergy Home Medications: Unobtainable [Unobtainable] 02/13/17 Allergies/Adverse Reactions: No Known Allergies Allergy (Verified 12/22/16 07:41) Physical Exam Vital Signs: Temp Pulse Resp BP Pulse Ox 97.5 F 106 H 14 116/79 95 02/21/17 08:17 02/21/17 14:00 02/21/17 08:17 02/21/17 08:17 02/21/17 08:17 Intake & Output 02/20/17 02/21/17 02/22/17 06:59 06:59 06:59 Intake Total 2240 3090 1475 Output Total 1110 1400 810 Balance 1130 1690 665 Weight 66.9 kg 71.9 kg General appearance: PRESENT: other - severe icterus, looks frial Eye exam: PRESENT: other - icterus +++ GI/Abdominal exam: PRESENT: other - soft abdomen, non tender , ascitis ++ Percutaneous cholecystostomy in place , draining bilious fluid Results Laboratory Results: 02/21/17 06:15 02/21/17 06:15 02/21/17 02/21/17 02/21/17 06:15 06:15 06:15 WBC 24.6 H RBC 2.73 L Hgb 8.5 L Hct 26.4 L MCV 97 MCH 31.1 MCHC 32.2 RDW 21.7 H Plt Count 236 Seg Neutrophils % Not Reportable Lymphocytes % Not Reportable Monocytes % Not Reportable Eosinophils % Not Reportable Basophils % Not Reportable Absolute Neutrophils Not Reportable Absolute Lymphocytes Not Reportable Absolute Monocytes Not Reportable Absolute Eosinophils Not Reportable Absolute Basophils Not Reportable Sodium 139.3 Potassium 3.8 Chloride 112 H Carbon Dioxide 15 L Anion Gap 12 BUN 30 H Creatinine 1.34 H Est GFR ( Amer) 50 L Est GFR (Non-Af Amer) 42 L Glucose 78 Lactic Acid Calcium 8.2 L Magnesium 1.5 L Total Bilirubin 15.2 H AST 38 H ALT 21 Alkaline Phosphatase 141 H Total Protein 5.4 L Albumin 2.0 L 02/21/17 08:45 WBC RBC Hgb Hct MCV MCH MCHC RDW Plt Count Seg Neutrophils % Lymphocytes % Monocytes % Eosinophils % Basophils % Absolute Neutrophils Absolute Lymphocytes Absolute Monocytes Absolute Eosinophils Absolute Basophils Sodium Potassium Chloride Carbon Dioxide Anion Gap BUN Creatinine Est GFR ( Amer) Est GFR (Non-Af Amer) Glucose Lactic Acid 1.1 Calcium Magnesium Total Bilirubin AST ALT Alkaline Phosphatase Total Protein Albumin 02/16/17 19:25 Blood Blood Culture - Final NO GROWTH IN 5 DAYS 02/16/17 18:15 Blood Blood Culture - Final NO GROWTH IN 5 DAYS 02/19/17 23:30 Loja Catheter Urine Culture - Final C.albicans/C.dubliniensis Impressions: Abdomen Ultrasound 02/14/17 08:26 IMPRESSION: Diffusely echogenic liver from diffuse fatty infiltration hepatocellular disease Gallbladder filled with sludge, definite gallbladder wall thickening and pericholecystic fluid. Findings worrisome for cholecystitis Percutaneous Drainage 02/15/17 08:00 IMPRESSION: CT GUIDED CHOLECYSTOSTOMY TUBE PLACEMENT. NO IMMEDIATE COMPLICATIONS. 8 [place] INDWELLING CATHETER WITH LOCKING PIGTAIL IN THE GALLBLADDER. Chest X-Ray 02/18/17 07:00 IMPRESSION: NO ACUTE RADIOGRAPHIC FINDING IN THE CHEST. Abdomen/Pelvis CT 02/19/17 00:00 IMPRESSION: Interval development of generalized ascites most prominent perihepatic. The gallbladder is completely decompressed and there is pericholecystic fluid. No focal walled off abscess collection. Indwelling catheter at least partially within the gallbladder. Because the gallbladder is completely decompressed, it is not possible to determine if some of the catheter holes are outside the gallbladder. Large bilateral pleural effusions with basilar atelectasis. Assessment & Plan - Time Time Spent: 50 to 70 Minutes - Inpatient Certification Medical Necessity: Failure to Improve With Outpatient Therapy - Plan Summary Plan Summary: Patient primarily has Alcoholic liver disease and liver failure , no other surgical interventions are indicated or useful . Check for C diff and spotaneous bacterial peritonitis - U/S guided paracentesis tomorrow d/w Dr Santana Explained to the patient.
[2017-02-21 20:45] LABS: PROTHROMBIN TIME 20.4 SEC (11.4-15.4)
[2017-02-22] MEDS: PIPERACILLIN SODIUM/TAZOBACTAM 3.375 GM in NORMAL SALINE 100 ML IV SCH (05:49)
[2017-02-22] MEDS: FUROSEMIDE INJ/PF 20 MG/2 ML SDV IV SCH ×2 (05:49→18:24)
[2017-02-22 06:43] LABS: HEMOGLOBIN 8.2 g/dL (12.0-15.5); HGB HCT DIFFERENCE -0.4; MEAN CORPUSCULAR HEMOGLOBIN 31.4 pg (27.0-33.4); MEAN CORPUSCULAR VOLUME 95 fl (80-97); RED BLOOD COUNT 2.62 10^6/uL (3.72-5.28); RED CELL DISTRIBUTION WIDTH 21.2 % (11.5-14.0)
[2017-02-22 07:22] LABS: ANION GAP 13 (5-19); BLOOD UREA NITROGEN 27 mg/dL (7-20); CALCIUM 8.1 mg/dL (8.4-10.2); CARBON DIOXIDE 17 mmol/L (22-30); CHLORIDE 109 mmol/L (98-107); CREATININE RESULT 1.21 mg/dL (0.52-1.25); GLUCOSE 75 mg/dL (75-110); MAGNESIUM 1.4 mg/dL (1.6-2.3); SODIUM 138.6 mmol/L (137-145)
[2017-02-22 07:26] LABS: POTASSIUM 2.5 mmol/L (3.6-5.0)
[2017-02-22 07:35] LABS: BAND NEUTROPHILS % (MANUAL) 1 % (3-5); BASOPHILS % (MANUAL) 0 % (0-2); EOSINOPHILS % (MANUAL) 4 % (0-6); LYMPHOCYTES % (MANUAL) 4 % (13-45); TOTAL CELLS COUNTED 100
[2017-02-22 07:36] LABS: ANISOCYTOSIS 3+; HYPOCHROMASIA SLIGHT; POIKILOCYTOSIS SLIGHT; TOXIC GRANULATION SLIGHT
[2017-02-22 07:37] LABS: TEAR DROP CELLS SLIGHT
[2017-02-22] MEDS ORDERED: MAGNESIUM SULFATE/D5W 100 ML IV SCH (07:45)
[2017-02-22] MEDS ORDERED: POTASSI CL 20 MEQ/50 ML RIDER 50 ML IV SCH (07:46)
--- NOTE | 2017-02-22 10:12 | PDOC PROGRESS REPORT ---
Subjective Progress Note for:: 02/22/17 Subjective:: This is a follow-up visit for sepsis secondary to acute cholecystitis and bacteremia. Over the past week the patient was improved in some ways. She is now awake. Renal function has improved. Her white blood cell count, however, has increased quite rapidly. Repeat abdominal CT was done to ensure no development of abscess. Showed a best gallbladder, large bilateral pleural effusions and moderate ascites. Patient barely has any complaints. Her antibiotic coverage was broadened out and repeat blood cultures were done. Because she did have 1 more blood culture result positive, echocardiogram was done to try and rule out bacterial endocarditis. This was indeterminate. ALFREDO was not pursued because repeat blood cultures after this were negative. General surgery was a reconsult and last night and they do not feel that any other option is indicated. Diagnostic Paracentesis is scheduled for today. Today her white blood cell count is down from 24-21. Ultimately this patient will need subacute rehabilitation at a local SNF. Fully she will be ready for discharge by the end of the week. Physical Exam Vital Signs: Temp Pulse Resp BP Pulse Ox 97.6 F 98 16 134/76 H 100 02/22/17 08:09 02/22/17 08:09 02/22/17 08:09 02/22/17 08:09 02/22/17 08:09 Intake & Output 02/21/17 02/22/17 02/23/17 06:59 06:59 06:59 Intake Total 3090 2275 Output Total 1400 1110 Balance 1690 1165 Weight 71.9 kg 73.7 kg PHYSICAL EXAM: GENERAL: This is a well-developed jaundiced and ill appearing white female resting in no acute distress. HEENT: Normocephalic atraumatic. trachea is midline. Dentition is quite poor with broken off teeth. Scleral icterus is present. HEART: Regular rate and rhythm. Questionable 1/6 systolic ejection murmur. No Rubs or gallops. LUNGS: Clear to auscultation anteriorly bilaterally with equal rise and fall of the chest. ABDOMEN: Soft, nontender, mildly distended with normoactive bowel sounds. Percutaneous drain in place. It is draining bile. EXTREMITIES: No clubbing cyanosis or edema. CELSO hose are in place. 1+ peripheral pulses. NEURO: Awake, alert, oriented to self. Speech is garbled at times, however, the patient can be generally understood. Cranial nerves II through XII grossly intact. PSYCH: Normal affect. Patient lacks insight. LINES: Right femoral clean dry and intact : Loja catheter is in place and draining jim colored urine Results Laboratory Results: 02/22/17 05:50 02/22/17 05:50 02/21/17 02/21/17 02/21/17 06:15 06:15 22:05 WBC 24.6 H RBC 2.73 L Hgb 8.5 L Hct 26.4 L MCV 97 MCH 31.1 MCHC 32.2 RDW 21.7 H Plt Count 236 Seg Neutrophils % Not Reportable Lymphocytes % Not Reportable Monocytes % Not Reportable Eosinophils % Not Reportable Basophils % Not Reportable Absolute Neutrophils Not Reportable Absolute Lymphocytes Not Reportable Absolute Monocytes Not Reportable Absolute Eosinophils Not Reportable Absolute Basophils Not Reportable Sodium Potassium Chloride Carbon Dioxide Anion Gap BUN Creatinine Est GFR ( Amer) Est GFR (Non-Af Amer) Glucose Lactic Acid Calcium Magnesium 1.5 L Total Bilirubin 15.2 H AST 38 H ALT 21 Alkaline Phosphatase 141 H Total Protein 5.4 L Albumin 2.0 L Stool Occult Blood POSITIVE 02/22/17 02/22/17 02/22/17 05:50 05:50 07:30 WBC 21.0 H RBC 2.62 L Hgb 8.2 L Hct 25.0 L MCV 95 MCH 31.4 MCHC 33.0 RDW 21.2 H Plt Count 252 Seg Neutrophils % Not Reportable Lymphocytes % Not Reportable Monocytes % Not Reportable Eosinophils % Not Reportable Basophils % Not Reportable Absolute Neutrophils Not Reportable Absolute Lymphocytes Not Reportable Absolute Monocytes Not Reportable Absolute Eosinophils Not Reportable Absolute Basophils Not Reportable Sodium 138.6 Potassium 2.5 L* D Chloride 109 H Carbon Dioxide 17 L Anion Gap 13 BUN 27 H Creatinine 1.21 Est GFR ( Amer) 57 L Est GFR (Non-Af Amer) 47 L Glucose 75 Lactic Acid 1.2 Calcium 8.1 L Magnesium 1.4 L Total Bilirubin AST ALT Alkaline Phosphatase Total Protein Albumin Stool Occult Blood 02/16/17 19:25 Blood Blood Culture - Final NO GROWTH IN 5 DAYS 02/16/17 18:15 Blood Blood Culture - Final NO GROWTH IN 5 DAYS 02/19/17 23:30 Loja Catheter Urine Culture - Final C.albicans/C.dubliniensis Impressions: Abdomen Ultrasound 02/14/17 08:26 IMPRESSION: Diffusely echogenic liver from diffuse fatty infiltration hepatocellular disease Gallbladder filled with sludge, definite gallbladder wall thickening and pericholecystic fluid. Findings worrisome for cholecystitis Percutaneous Drainage 02/15/17 08:00 IMPRESSION: CT GUIDED CHOLECYSTOSTOMY TUBE PLACEMENT. NO IMMEDIATE COMPLICATIONS. 8 SAMI INDWELLING CATHETER WITH LOCKING PIGTAIL IN THE GALLBLADDER. Chest X-Ray 02/18/17 07:00 IMPRESSION: NO ACUTE RADIOGRAPHIC FINDING IN THE CHEST. Abdomen/Pelvis CT 02/19/17 00:00 IMPRESSION: Interval development of generalized ascites most prominent perihepatic. The gallbladder is completely decompressed and there is pericholecystic fluid. No focal walled off abscess collection. Indwelling catheter at least partially within the gallbladder. Because the gallbladder is completely decompressed, it is not possible to determine if some of the catheter holes are outside the gallbladder. Large bilateral pleural effusions with basilar atelectasis. Assessment & Plan - Diagnosis (1) Severe sepsis with septic shock Plan: Severe sepsis with shock secondary to acute cholecystitis, Escherichia coli UTI and MSSA and Escherichia coli bacteremia. Patient is status post pressor support. Both organisms show susceptibility to Zosyn. However, the patient's white count was steadily climbing. Chest x-ray is clear. Continue triple coverage for now. Repeat lab work in the morning. Depending on what her white blood cell count is doing we will try narrow her antibiotics.. Repeat CT of the abdomen showed interval ascitic fluid development, bilateral pleural effusion at the bases, and a decompressed gallbladder. General surgery was reconsulted and diagnostic paracentesis is scheduled for today. Consider SBP. (2) Bacteremia Plan: Bacteremia secondary to MSSA and Escherichia coli. Management as per #1 (3) Acute cholecystitis Plan: Continue antibiotic coverage for now. She is status post place percutaneous tube for drainage. Further management as per #1. Repeat LFTs still show elevated total bili and elevated alkaline phosphatase. Gallbladder is currently decompressed. (4) E-coli UTI Plan: Patient has been adequately treated for this infection. She remains on antibiotics as per #1 (5) Acute renal failure Qualifiers: Acute renal failure type: unspecified Qualified Code(s): N17.9 - Acute kidney failure, unspecified Plan: Secondary to underlying sepsis. As of today resolved (6) Dehydration with hypernatremia Plan: Hypernatremia is resolved. (7) Hypokalemia Plan: Potassium replaced (8) Metabolic encephalopathy Plan: Improved overall. Patient still lacks insight. (9) Alcoholic liver failure Plan: Refrain from further alcohol consumption. Patient with underlying severe fatty liver disease bordering cirrhosis. Now she has ascites. (10) Anemia Qualifiers: Anemia type: other cause Other causes of anemia: chronic disease, other Qualified Code(s): D63.8 - Anemia in other chronic diseases classified elsewhere Plan: Stable (11) Hypomagnesemia Plan: Magnesium will be replaced. (12) Metabolic acidosis Plan: Patient is on bicarbonate drip. Continue to monitor labs and patient response. - Time Time Spent with patient: 25-34 minutes - Inpatient Certification Medical Necessity: Need Close Monitoring Due to Risk of Patient Decompensation
[2017-02-22] MEDS: LEVOFLOXACIN 250 MG/D5W RTU 250 MG/50 ML RTUPB IV SCH (11:09)
[2017-02-22] MEDS: MAGNESIUM OXIDE 400 MG TABLET PO SCH ×2 (11:36→18:26)
[2017-02-22] MEDS: NYSTATIN CREAM 15 GM TP SCH ×2 (11:36→21:38)
[2017-02-22] MEDS ORDERED: MAGNESIUM SULFATE/D5W 1 GM/100 ML RTUPB IV ONE (12:15)
[2017-02-22] MEDS: POTASSI CL 20 MEQ/50 ML RIDER 50 ML IV SCH (12:30)
[2017-02-22] MEDS: DEXTROSE 5%-WATER 1000 ML 1,000 ML with SODIUM BICARBONATE 100 MEQ IV PRN ×2 (13:02)
[2017-02-22] MEDS: VANCOMYCIN HCL 750 MG in DEXTROSE 5%-WATER 250 ML IV SCH (13:03)
[2017-02-22] MEDS ORDERED: POTASSIUM CHLORIDE 20 MEQ/50 ML RTU IV ONE (13:15)
[2017-02-22] MEDS: FLUCONAZOLE 100 MG TABLET PO SCH (14:27)
[2017-02-23] MEDS: FUROSEMIDE INJ/PF 20 MG/2 ML SDV IV SCH ×2 (05:35→17:11)
[2017-02-23 06:00] LABS: ABSOLUTE BASOPHILS # (AUTO) 0.1 10^3/uL (0.0-0.2); ABSOLUTE EOSINOPHILS # (AUTO) 0.4 10^3/uL (0.0-0.6); ABSOLUTE LYMPHOCYTES (AUTO) 1.2 10^3/uL (0.5-4.7); ABSOLUTE NEUT (AUTO) 16.3 10^3/uL (1.7-8.2); BASOPHILS % (AUTO) 0.4 % (0-2); EOSINOPHILS % (AUTO) 2.2 % (0-6); HEMATOCRIT 22.6 % (36.0-47.0); HGB HCT DIFFERENCE 0.2; LYMPHOCYTES % (AUTO) 6.2 % (13-45); MEAN CORPUSCULAR HEMOGLOBIN 31.5 pg (27.0-33.4); MEAN CORPUSCULAR HGB CONC 33.7 g/dL (32.0-36.0); MEAN CORPUSCULAR VOLUME 94 fl (80-97); MONOCYTES % (AUTO) 5.2 % (3-13); RED BLOOD COUNT 2.42 10^6/uL (3.72-5.28); WHITE BLOOD COUNT 18.9 10^3/uL (4.0-10.5)
[2017-02-23 06:09] LABS: HEMOGLOBIN 7.6 g/dL (12.0-15.5)
[2017-02-23 06:14] LABS: ANION GAP 12 (5-19); BLOOD UREA NITROGEN 24 mg/dL (7-20); CALCIUM 7.7 mg/dL (8.4-10.2); CARBON DIOXIDE 20 mmol/L (22-30); CHLORIDE 106 mmol/L (98-107); CREATININE RESULT 1.11 mg/dL (0.52-1.25); GLUCOSE 69 mg/dL (75-110); MAGNESIUM 1.5 mg/dL (1.6-2.3); SODIUM 138.4 mmol/L (137-145)
[2017-02-23 06:18] LABS: POTASSIUM 1.9 mmol/L (3.6-5.0)
[2017-02-23] MEDS ORDERED: POTASSIUM CHLORIDE 20 MEQ/15 ML UDCUP PO ONE (08:02)
[2017-02-23] MEDS ORDERED: NORMAL SALINE 250 ML IV PRN ×2 (08:05)
[2017-02-23] MEDS ORDERED: FUROSEMIDE INJ/PF 20 MG/2 ML SDV IV PRN (08:05)
--- NOTE | 2017-02-23 08:14 | PDOC PROGRESS REPORT ---
Subjective Progress Note for:: 02/23/17 Subjective:: Patient is alert and awake this morning; she appears still confused and jaundiced but in no distress She is extremely hypokalemic She is to undergo paracentesis later Physical Exam Vital Signs: Temp Pulse Resp BP Pulse Ox 97.6 F 85 20 111/64 100 02/23/17 03:37 02/23/17 03:37 02/23/17 03:37 02/23/17 03:37 02/23/17 03:37 Intake & Output 02/22/17 02/23/17 02/24/17 00:59 00:59 00:59 Intake Total 2375 2163 500 Output Total 1010 1700 400 Balance 1365 463 100 Weight 71.9 kg 73.7 kg 73.5 kg General appearance: PRESENT: mild distress Head exam: PRESENT: atraumatic, normocephalic Eye exam: PRESENT: scleral icterus Ear exam: PRESENT: normal external ear exam Neck exam: ABSENT: carotid bruit, JVD, lymphadenopathy, thyromegaly Respiratory exam: PRESENT: decreased breath sounds. ABSENT: rales, rhonchi, wheezes Cardiovascular exam: PRESENT: RRR. ABSENT: diastolic murmur, rubs, systolic murmur Pulses: PRESENT: normal dorsalis pedis pul GI/Abdominal exam: PRESENT: ascites. ABSENT: guarding, tenderness Extremities exam: PRESENT: full ROM. ABSENT: calf tenderness, clubbing, pedal edema Neurological exam: PRESENT: awake, other - SOMEWHAT confused Skin exam: PRESENT: jaundice Results Laboratory Results: 02/23/17 05:00 02/23/17 05:00 02/23/17 02/23/17 05:00 05:00 WBC 18.9 H RBC 2.42 L Hgb 7.6 L Hct 22.6 L MCV 94 MCH 31.5 MCHC 33.7 RDW 21.0 H Plt Count 231 Seg Neutrophils % 86.0 H Lymphocytes % 6.2 L Monocytes % 5.2 Eosinophils % 2.2 Basophils % 0.4 Absolute Neutrophils 16.3 H Absolute Lymphocytes 1.2 Absolute Monocytes 1.0 Absolute Eosinophils 0.4 Absolute Basophils 0.1 Sodium 138.4 Potassium 1.9 L* Chloride 106 Carbon Dioxide 20 L Anion Gap 12 BUN 24 H Creatinine 1.11 Est GFR ( Amer) > 60 Est GFR (Non-Af Amer) 52 L Glucose 69 L Calcium 7.7 L Magnesium 1.5 L Impressions: Abdomen Ultrasound 02/14/17 08:26 IMPRESSION: Diffusely echogenic liver from diffuse fatty infiltration hepatocellular disease Gallbladder filled with sludge, definite gallbladder wall thickening and pericholecystic fluid. Findings worrisome for cholecystitis Percutaneous Drainage 02/15/17 08:00 IMPRESSION: CT GUIDED CHOLECYSTOSTOMY TUBE PLACEMENT. NO IMMEDIATE COMPLICATIONS. 8 BULGARIAN INDWELLING CATHETER WITH LOCKING PIGTAIL IN THE GALLBLADDER. Chest X-Ray 02/18/17 07:00 IMPRESSION: NO ACUTE RADIOGRAPHIC FINDING IN THE CHEST. Abdomen/Pelvis CT 02/19/17 00:00 IMPRESSION: Interval development of generalized ascites most prominent perihepatic. The gallbladder is completely decompressed and there is pericholecystic fluid. No focal walled off abscess collection. Indwelling catheter at least partially within the gallbladder. Because the gallbladder is completely decompressed, it is not possible to determine if some of the catheter holes are outside the gallbladder. Large bilateral pleural effusions with basilar atelectasis. Assessment & Plan - Diagnosis (1) Sepsis Qualifiers: Sepsis type: methicillin susceptible Staphylococcus aureus Qualified Code(s): A41.01 - Sepsis due to Methicillin susceptible Staphylococcus aureus Is this a current diagnosis for this admission?: Yes (2) Acute renal failure Qualifiers: Acute renal failure type: unspecified Qualified Code(s): N17.9 - Acute kidney failure, unspecified Is this a current diagnosis for this admission?: Yes (3) Alcoholic liver failure Is this a current diagnosis for this admission?: Yes (4) Dehydration with hypernatremia Is this a current diagnosis for this admission?: Yes (5) Hypocalcemia Is this a current diagnosis for this admission?: Yes (6) Hypokalemia Is this a current diagnosis for this admission?: Yes (7) Metabolic encephalopathy Is this a current diagnosis for this admission?: Yes (8) Acute cholecystitis Is this a current diagnosis for this admission?: Yes (9) Blood in stool Is this a current diagnosis for this admission?: YesPlan: And acute on chronic anemia with a hemoglobin of 7 Patient likely has low-grade GI bleed Noticed that she has a normal platelet count with a prolonged PT INR We will give the patient Protonix IV, and transfuse 2 units of packed red cells - Time Time Spent with patient: Severe hypokalemia and hypomagnesemia; we'll replace Hypoglycemia; we'll infuse D5W ; will encourage feedings Patient's condition overall is improving slowly Time Spent with patient: 35 or more minutes
[2017-02-23] MEDS: POTASSI CL 20 MEQ/50 ML RIDER 50 ML IV SCH ×2 (08:55→10:30)
[2017-02-23] MEDS: POTASSI CL 40 MEQ/D5-1/2NS 1L 1,000 ML IV PRN ×2 (08:58→21:46)
[2017-02-23] MEDS: MAGNESIUM OXIDE 400 MG TABLET PO SCH ×2 (08:58→17:11)
[2017-02-23] MEDS: PANTOPRAZOLE SODIUM 40 MG VIAL IV SCH ×2 (08:59→21:45)
[2017-02-23] MEDS: LEVOFLOXACIN 250 MG/D5W RTU 250 MG/50 ML RTUPB IV SCH (10:29)
[2017-02-23] MEDS: NYSTATIN CREAM 15 GM TP SCH ×2 (10:30→21:46)
[2017-02-23] MEDS ORDERED: VANCOMYCIN HCL 500 MG in DEXTROSE 5%-WATER 100 ML IV SCH (12:00)
[2017-02-23] MEDS: FLUCONAZOLE 100 MG TABLET PO SCH (13:33)
[2017-02-23 14:35] LABS: ANION GAP 11 (5-19); BLOOD UREA NITROGEN 23 mg/dL (7-20); CALCIUM 7.7 mg/dL (8.4-10.2); CARBON DIOXIDE 19 mmol/L (22-30); CHLORIDE 109 mmol/L (98-107); CREATININE RESULT 1.06 mg/dL (0.52-1.25); GLUCOSE 85 mg/dL (75-110); MAGNESIUM 1.4 mg/dL (1.6-2.3); SODIUM 138.8 mmol/L (137-145)
[2017-02-23 14:49] LABS: POTASSIUM 3.2 mmol/L (3.6-5.0)
[2017-02-23 20:33] LABS: HEMATOCRIT 30.8 % (36.0-47.0); HGB HCT DIFFERENCE -0.5; MEAN CORPUSCULAR HEMOGLOBIN 29.5 pg (27.0-33.4); MEAN CORPUSCULAR HGB CONC 32.6 g/dL (32.0-36.0); RED BLOOD COUNT 3.41 10^6/uL (3.72-5.28); RED CELL DISTRIBUTION WIDTH 22.6 % (11.5-14.0); WHITE BLOOD COUNT 23.7 10^3/uL (4.0-10.5)
[2017-02-23] MEDS ORDERED: POTASSI CL 40 MEQ/NS 1L 1,000 ML IV PRN (20:46)
[2017-02-23 20:56] LABS: HEMOGLOBIN 10.1 g/dL (12.0-15.5); MEAN CORPUSCULAR VOLUME 90 fl (80-97)
[2017-02-23] MEDS: MAGNESIUM SULFATE/D5W 1 GM/100 ML RTUPB IV SCH ×2 (21:56→23:57)
[2017-02-23] MEDS: POTASSIUM CHLORIDE 10 MEQ TABLET.SA PO SCH (21:56)
[2017-02-24] MEDS: MAGNESIUM SULFATE/D5W 1 GM/100 ML RTUPB IV SCH (01:18)
[2017-02-24] MEDS: POTASSIUM CHLORIDE 10 MEQ TABLET.SA PO SCH (05:23)
[2017-02-24] MEDS: FUROSEMIDE INJ/PF 20 MG/2 ML SDV IV SCH ×2 (05:25→17:36)
[2017-02-24 06:18] LABS: ANION GAP 13 (5-19); BLOOD UREA NITROGEN 19 mg/dL (7-20); CALCIUM 7.6 mg/dL (8.4-10.2); CARBON DIOXIDE 17 mmol/L (22-30); CHLORIDE 108 mmol/L (98-107); CREATININE RESULT 1.07 mg/dL (0.52-1.25); GLUCOSE 102 mg/dL (75-110); SODIUM 137.9 mmol/L (137-145)
[2017-02-24] MEDS: LEVOFLOXACIN 250 MG/D5W RTU 250 MG/50 ML RTUPB IV SCH (09:49)
[2017-02-24] MEDS: PANTOPRAZOLE SODIUM 40 MG VIAL IV SCH ×2 (09:49→23:17)
[2017-02-24] MEDS: MAGNESIUM OXIDE 400 MG TABLET PO SCH ×2 (09:49→17:36)
[2017-02-24] MEDS ORDERED: ONDANSETRON HCL INJ/PF 4 MG/2 ML SDV ONE (09:54)
[2017-02-24] MEDS: NYSTATIN CREAM 15 GM TP SCH ×2 (09:56→23:17)
--- NOTE | 2017-02-24 10:34 | PDOC PROGRESS REPORT ---
Subjective Progress Note for:: 02/24/17 - ' Subjective:: Patient was complaining of nausea and vomiting this morning She is complaining also right lower quadrant abdominal pain She's had no fever no chills ; she still looks extremely jaundiced and pale Physical Exam Vital Signs: Temp Pulse Resp BP Pulse Ox 97.5 F 98 19 113/89 H 100 02/24/17 07:59 02/24/17 07:59 02/24/17 07:59 02/24/17 07:59 02/24/17 07:59 Intake & Output 02/23/17 02/24/17 02/25/17 00:59 00:59 00:59 Intake Total 2163 3050 960 Output Total 1700 1810 Balance 463 1240 960 Weight 73.7 kg 73.5 kg 75.9 kg General appearance: PRESENT: mild distress, thin Head exam: PRESENT: atraumatic, normocephalic Eye exam: PRESENT: scleral icterus Neck exam: ABSENT: carotid bruit, JVD, lymphadenopathy, thyromegaly Respiratory exam: PRESENT: clear to auscultation lachelle. ABSENT: rales, rhonchi, wheezes Cardiovascular exam: PRESENT: RRR. ABSENT: diastolic murmur, rubs, systolic murmur GI/Abdominal exam: PRESENT: ascites, distended, tenderness - Right upper quadrant Extremities exam: PRESENT: +1 edema, other Neurological exam: PRESENT: alert, awake Skin exam: PRESENT: dry, intact, warm. ABSENT: cyanosis, rash Results Laboratory Results: 02/23/17 19:45 02/24/17 05:30 02/23/17 02/23/17 02/23/17 10:15 13:35 19:45 WBC 23.7 H RBC 3.41 L Hgb 10.1 L D Hct 30.8 L MCV 90 D MCH 29.5 MCHC 32.6 RDW 22.6 H Plt Count 234 Sodium 138.8 Potassium 3.2 L D Chloride 109 H Carbon Dioxide 19 L Anion Gap 11 BUN 23 H Creatinine 1.06 Est GFR ( Amer) > 60 Est GFR (Non-Af Amer) 54 L Glucose 85 Calcium 7.7 L Magnesium 1.4 L Blood Type A POSITIVE Antibody Screen NEGATIVE 02/24/17 05:30 WBC RBC Hgb Hct MCV MCH MCHC RDW Plt Count Sodium 137.9 Potassium 3.0 L* Chloride 108 H Carbon Dioxide 17 L Anion Gap 13 BUN 19 Creatinine 1.07 Est GFR ( Amer) > 60 Est GFR (Non-Af Amer) 54 L Glucose 102 Calcium 7.6 L Magnesium Blood Type Antibody Screen Impressions: Abdomen Ultrasound 02/14/17 08:26 IMPRESSION: Diffusely echogenic liver from diffuse fatty infiltration hepatocellular disease Gallbladder filled with sludge, definite gallbladder wall thickening and pericholecystic fluid. Findings worrisome for cholecystitis Percutaneous Drainage 02/15/17 08:00 IMPRESSION: CT GUIDED CHOLECYSTOSTOMY TUBE PLACEMENT. NO IMMEDIATE COMPLICATIONS. 8 ERITREAN INDWELLING CATHETER WITH LOCKING PIGTAIL IN THE GALLBLADDER. Chest X-Ray 02/18/17 07:00 IMPRESSION: NO ACUTE RADIOGRAPHIC FINDING IN THE CHEST. Abdomen/Pelvis CT 02/19/17 00:00 IMPRESSION: Interval development of generalized ascites most prominent perihepatic. The gallbladder is completely decompressed and there is pericholecystic fluid. No focal walled off abscess collection. Indwelling catheter at least partially within the gallbladder. Because the gallbladder is completely decompressed, it is not possible to determine if some of the catheter holes are outside the gallbladder. Large bilateral pleural effusions with basilar atelectasis. Paracentesis Ultrasound 02/23/17 09:00 IMPRESSION: Successful ultrasound-guided diagnostic and therapeutic paracentesis Assessment & Plan - Diagnosis (1) Sepsis Qualifiers: Sepsis type: methicillin susceptible Staphylococcus aureus Qualified Code(s): A41.01 - Sepsis due to Methicillin susceptible Staphylococcus aureus Is this a current diagnosis for this admission?: Yes (2) Acute renal failure Qualifiers: Acute renal failure type: unspecified Qualified Code(s): N17.9 - Acute kidney failure, unspecified Is this a current diagnosis for this admission?: Yes (3) Alcoholic liver failure Is this a current diagnosis for this admission?: Yes (4) Dehydration with hypernatremia Is this a current diagnosis for this admission?: Yes (5) Hypocalcemia Is this a current diagnosis for this admission?: Yes (6) Hypokalemia Is this a current diagnosis for this admission?: Yes (7) Metabolic encephalopathy Is this a current diagnosis for this admission?: Yes (8) Acute cholecystitis Is this a current diagnosis for this admission?: Yes (9) Blood in stool Is this a current diagnosis for this admission?: Yes - Time Time Spent with patient: Concern for the patient is persistent leukocytosis. Patient now has developed profuse diarrhea The jaundiced is still extremely persistent and patient looks still very ill We will repeat blood cultures switch antibiotics to Ancef has the patient had MSSA bacteremia Continue IV fluids Continue K replacement Initiate Aldactone We will give the patient 4 mg of Imodium the diarrhea and check stools for C. difficile Continue supportive management Time Spent with patient: 25-34 minutes
[2017-02-24] MEDS ORDERED: LOPERAMIDE HCL 2 MG CAPSULE PO ONE (10:36)
[2017-02-24] MEDS: CHOLESTYRAMINE/ASPARTAME 4 GM PACKET PO SCH ×3 (12:00→23:17)
[2017-02-24] MEDS ORDERED: ALBUMIN HUMAN 50 ML IV SCH (13:00)
[2017-02-24] MEDS: FLUCONAZOLE 100 MG TABLET PO SCH (13:31)
[2017-02-24] MEDS: CEFAZOLIN 2 GM/D5W RTU 50 ML IV SCH ×2 (14:35→23:16)
[2017-02-24] MEDS: LEVOFLOXACIN 250 MG TABLET PO SCH (14:35)
[2017-02-24] MEDS ORDERED: ONDANSETRON HCL INJ/PF 4 MG/2 ML SDV IV PRN (16:03)
[2017-02-24] MEDS ORDERED: POTASSI CL 40 MEQ/NS 1L 1,000 ML IV PRN (16:23)
[2017-02-24 18:30] LABS: HEMATOCRIT 31.6 % (36.0-47.0); HEMOGLOBIN 10.1 g/dL (12.0-15.5); HGB HCT DIFFERENCE -1.3; MEAN CORPUSCULAR HEMOGLOBIN 28.9 pg (27.0-33.4); MEAN CORPUSCULAR HGB CONC 31.9 g/dL (32.0-36.0); MEAN CORPUSCULAR VOLUME 91 fl (80-97); RED BLOOD COUNT 3.49 10^6/uL (3.72-5.28); RED CELL DISTRIBUTION WIDTH 23.1 % (11.5-14.0)
[2017-02-24 18:53] LABS: BAND NEUTROPHILS % (MANUAL) 9 % (3-5); BASOPHILS % (MANUAL) 0 % (0-2); EOSINOPHILS % (MANUAL) 0 % (0-6); LYMPHOCYTES % (MANUAL) 7 % (13-45); TOTAL CELLS COUNTED 100
[2017-02-24 18:54] LABS: BURR CELLS 1+; HELMET CELLS SLIGHT; HYPOCHROMASIA SLIGHT; OVALOCYTES SLIGHT; PLATELET CLUMPS PRESENT; POIKILOCYTOSIS 2+
[2017-02-24] MEDS: SPIRONOLACTONE 25 MG TABLET PO SCH (23:18)
[2017-02-25 04:38] LABS: HEMATOCRIT 29.6 % (36.0-47.0); HEMOGLOBIN 9.8 g/dL (12.0-15.5); HGB HCT DIFFERENCE -0.2; MEAN CORPUSCULAR HEMOGLOBIN 29.9 pg (27.0-33.4); MEAN CORPUSCULAR VOLUME 90 fl (80-97); RED BLOOD COUNT 3.27 10^6/uL (3.72-5.28); RED CELL DISTRIBUTION WIDTH 23.4 % (11.5-14.0); WHITE BLOOD COUNT 29.6 10^3/uL (4.0-10.5)
[2017-02-25 04:55] LABS: ALANINE AMINOTRANSFERASE 25 U/L (9-52); ALBUMIN 1.8 g/dL (3.5-5.0); ALKALINE PHOSPHATASE 123 U/L (38-126); ANION GAP 12 (5-19); ASPARTATE AMINO TRANSFERASE 41 U/L (14-36); BILIRUBIN,DIRECT 11.6 mg/dL (0.0-0.4); BILIRUBIN,TOTAL 13.4 mg/dL (0.2-1.3); BLOOD UREA NITROGEN 18 mg/dL (7-20); CALCIUM 8.1 mg/dL (8.4-10.2); CARBON DIOXIDE 17 mmol/L (22-30); CHLORIDE 109 mmol/L (98-107); CREATININE RESULT 1.06 mg/dL (0.52-1.25); GLUCOSE 102 mg/dL (75-110); MAGNESIUM 1.5 mg/dL (1.6-2.3); POTASSIUM 3.6 mmol/L (3.6-5.0); SODIUM 137.6 mmol/L (137-145); TOTAL PROTEIN 4.9 g/dL (6.3-8.2)
[2017-02-25 05:09] LABS: BASOPHILS % (MANUAL) 0 % (0-2); EOSINOPHILS % (MANUAL) 1 % (0-6); LYMPHOCYTES % (MANUAL) 19 % (13-45); TOTAL CELLS COUNTED 100
[2017-02-25 05:12] LABS: TOXIC GRANULATION SLIGHT; TOXIC VACUOLATION PRESENT
[2017-02-25 05:13] LABS: ANISOCYTOSIS 3+; BURR CELLS 1+; POIKILOCYTOSIS 2+
[2017-02-25] MEDS: CEFAZOLIN 2 GM/D5W RTU 50 ML IV SCH ×3 (06:26→22:37)
[2017-02-25] MEDS: FUROSEMIDE INJ/PF 20 MG/2 ML SDV IV SCH ×2 (06:26→19:08)
[2017-02-25] MEDS: SPIRONOLACTONE 25 MG TABLET PO SCH ×2 (09:24→22:37)
[2017-02-25] MEDS: POTASSIUM CHLORIDE 10 MEQ TABLET.SA PO SCH (09:24)
[2017-02-25] MEDS: PANTOPRAZOLE SODIUM 40 MG VIAL IV SCH ×2 (09:24→22:37)
[2017-02-25] MEDS: MAGNESIUM OXIDE 400 MG TABLET PO SCH ×2 (09:25→19:07)
[2017-02-25] MEDS: NYSTATIN CREAM 15 GM TP SCH ×2 (09:25→22:38)
[2017-02-25] MEDS: CHOLESTYRAMINE/ASPARTAME 4 GM PACKET PO SCH ×4 (09:33→22:37)
--- NOTE | 2017-02-25 10:51 | PDOC PROGRESS REPORT ---
Subjective Progress Note for:: 02/25/17 Subjective:: Patient's mentation is excellent she is a lot more alert and awake She still extremely jaundiced with a bilirubin of 13 which has not come down She has no fever no chills Leukocytosis is persistent Physical Exam Vital Signs: Temp Pulse Resp BP Pulse Ox 97.6 F 91 19 128/77 H 100 02/25/17 08:00 02/25/17 08:00 02/25/17 08:00 02/25/17 08:00 02/25/17 08:00 Intake & Output 02/24/17 02/25/17 02/26/17 00:59 00:59 00:59 Intake Total 3050 2714 871 Output Total 1810 810 400 Balance 1240 1904 471 Weight 73.5 kg 75.9 kg 75.9 kg General appearance: PRESENT: mild distress Head exam: PRESENT: atraumatic, normocephalic Eye exam: PRESENT: EOMI, PERRLA, scleral icterus Neck exam: ABSENT: carotid bruit, JVD, lymphadenopathy, thyromegaly Respiratory exam: PRESENT: clear to auscultation lachelle. ABSENT: rales, rhonchi, wheezes Pulses: PRESENT: normal dorsalis pedis pul GI/Abdominal exam: PRESENT: tenderness - Mild in the right upper quadrant Cholecystostomy tube in place Extremities exam: PRESENT: full ROM. ABSENT: calf tenderness, clubbing, pedal edema Musculoskeletal exam: PRESENT: full ROM Neurological exam: PRESENT: awake, CN II-XII grossly intact Results Laboratory Results: 02/25/17 04:23 02/25/17 04:23 02/24/17 02/24/17 02/24/17 05:30 18:00 18:00 WBC 29.0 H RBC 3.49 L Hgb 10.1 L Hct 31.6 L MCV 91 MCH 28.9 MCHC 31.9 L RDW 23.1 H Plt Count 256 Seg Neutrophils % Not Reportable Lymphocytes % Not Reportable Monocytes % Not Reportable Eosinophils % Not Reportable Basophils % Not Reportable Absolute Neutrophils Not Reportable Absolute Lymphocytes Not Reportable Absolute Monocytes Not Reportable Absolute Eosinophils Not Reportable Absolute Basophils Not Reportable Sodium Potassium Chloride Carbon Dioxide Anion Gap BUN Creatinine Est GFR ( Amer) Est GFR (Non-Af Amer) Glucose Calcium Magnesium 1.8 Total Bilirubin AST ALT Alkaline Phosphatase Total Protein Albumin Lipase 39.2 02/25/17 02/25/17 04:23 04:23 WBC 29.6 H RBC 3.27 L Hgb 9.8 L Hct 29.6 L MCV 90 MCH 29.9 MCHC 33.0 RDW 23.4 H Plt Count 220 Seg Neutrophils % Not Reportable Lymphocytes % Not Reportable Monocytes % Not Reportable Eosinophils % Not Reportable Basophils % Not Reportable Absolute Neutrophils Not Reportable Absolute Lymphocytes Not Reportable Absolute Monocytes Not Reportable Absolute Eosinophils Not Reportable Absolute Basophils Not Reportable Sodium 137.6 Potassium 3.6 Chloride 109 H Carbon Dioxide 17 L Anion Gap 12 BUN 18 Creatinine 1.06 Est GFR ( Amer) > 60 Est GFR (Non-Af Amer) 54 L Glucose 102 Calcium 8.1 L Magnesium 1.5 L Total Bilirubin 13.4 H AST 41 H ALT 25 Alkaline Phosphatase 123 Total Protein 4.9 L Albumin 1.8 L Lipase Impressions: Abdomen Ultrasound 02/14/17 08:26 IMPRESSION: Diffusely echogenic liver from diffuse fatty infiltration hepatocellular disease Gallbladder filled with sludge, definite gallbladder wall thickening and pericholecystic fluid. Findings worrisome for cholecystitis Percutaneous Drainage 02/15/17 08:00 IMPRESSION: CT GUIDED CHOLECYSTOSTOMY TUBE PLACEMENT. NO IMMEDIATE COMPLICATIONS. 8 DIVEHI INDWELLING CATHETER WITH LOCKING PIGTAIL IN THE GALLBLADDER. Abdomen/Pelvis CT 02/19/17 00:00 IMPRESSION: Interval development of generalized ascites most prominent perihepatic. The gallbladder is completely decompressed and there is pericholecystic fluid. No focal walled off abscess collection. Indwelling catheter at least partially within the gallbladder. Because the gallbladder is completely decompressed, it is not possible to determine if some of the catheter holes are outside the gallbladder. Large bilateral pleural effusions with basilar atelectasis. Paracentesis Ultrasound 02/23/17 09:00 IMPRESSION: Successful ultrasound-guided diagnostic and therapeutic paracentesis Chest X-Ray 02/24/17 09:56 IMPRESSION: A limited left lower lobe pneumonia cannot be ruled out. Assessment & Plan - Diagnosis (1) Sepsis Qualifiers: Sepsis type: methicillin susceptible Staphylococcus aureus Qualified Code(s): A41.01 - Sepsis due to Methicillin susceptible Staphylococcus aureus Is this a current diagnosis for this admission?: Yes (2) Acute renal failure Qualifiers: Acute renal failure type: unspecified Qualified Code(s): N17.9 - Acute kidney failure, unspecified Is this a current diagnosis for this admission?: Yes (3) Alcoholic liver failure Is this a current diagnosis for this admission?: Yes (4) Dehydration with hypernatremia Is this a current diagnosis for this admission?: Yes (5) Hypocalcemia Is this a current diagnosis for this admission?: Yes (6) Hypokalemia Is this a current diagnosis for this admission?: Yes (7) Metabolic encephalopathy Is this a current diagnosis for this admission?: Yes (8) Acute cholecystitis Is this a current diagnosis for this admission?: Yes (9) Blood in stool Is this a current diagnosis for this admission?: Yes (10) Hyperbilirubinemia Is this a current diagnosis for this admission?: YesPlan: 02/14/17 02/14/17 02/17/17 06:05 08:43 04:35 Total Bilirubin 14.5 H 16.9 H Direct Bilirubin 12.5 H AST 60 H Alkaline Phosphatase 157 H Ammonia 33.0 02/19/17 02/21/17 02/25/17 08:25 06:15 04:23 Total Bilirubin 16.0 H 15.2 H 13.4 H Direct Bilirubin AST Alkaline Phosphatase Ammonia Is improved somewhat but still persistent with a bilirubin of 13 Patient did not have dilated bile ducts on ultrasound of the abdomen performed on 02/14 We are concerned about the possibility of retained common bile duct stones MRCP would be performed Discussed the case with Dr. Copeland If MRCP shows dilated bile duct patient will need to be transferred for ERCP Leukocytosis is still persistent and not improved
[2017-02-25] MEDS ORDERED: MAGNESIUM SULFATE/D5W 100 ML IV ONE (11:30)
[2017-02-25] MEDS ORDERED: POTASSIUM CHLORIDE 20 MEQ/15 ML UDCUP PO ONE (11:30)
[2017-02-25] MEDS: LEVOFLOXACIN 250 MG TABLET PO SCH (14:26)
[2017-02-26] MEDS: CEFAZOLIN 2 GM/D5W RTU 50 ML IV SCH ×3 (05:56→22:32)
[2017-02-26] MEDS: FUROSEMIDE INJ/PF 20 MG/2 ML SDV IV SCH ×2 (05:56→17:44)
[2017-02-26 06:22] LABS: ANION GAP 9 (5-19); BLOOD UREA NITROGEN 17 mg/dL (7-20); CALCIUM 8.3 mg/dL (8.4-10.2); CARBON DIOXIDE 18 mmol/L (22-30); CHLORIDE 111 mmol/L (98-107); CREATININE RESULT 1.03 mg/dL (0.52-1.25); GLUCOSE 66 mg/dL (75-110); POTASSIUM 3.7 mmol/L (3.6-5.0); SODIUM 138.1 mmol/L (137-145)
--- NOTE | 2017-02-26 08:33 | PDOC PROGRESS REPORT ---
Subjective Progress Note for:: 02/26/17 Subjective:: Patient is clinically improving She's had no fever no chills Jaundice is persistent but bilirubin is on the downward trend from 16-13 Still tachycardic with sinus tach at 100 The white blood count is still very elevated at 29,000, and there is no obvious persistent source of infection MRCP was negative for dilated bile ducts Physical Exam Vital Signs: Temp Pulse Resp BP Pulse Ox 97.3 F 106 H 16 100/66 100 02/26/17 03:17 02/26/17 03:17 02/26/17 03:17 02/26/17 03:17 02/26/17 03:17 Intake & Output 02/25/17 02/26/17 02/27/17 00:59 00:59 00:59 Intake Total 2714 1181 295 Output Total 810 1030 1360 Balance 1904 151 -1065 Weight 75.9 kg 75.9 kg 74.3 kg General appearance: PRESENT: no acute distress, thin Head exam: PRESENT: atraumatic, normocephalic Eye exam: PRESENT: scleral icterus Neck exam: ABSENT: carotid bruit, JVD, lymphadenopathy, thyromegaly Respiratory exam: PRESENT: clear to auscultation lachelle. ABSENT: rales, rhonchi, wheezes Cardiovascular exam: PRESENT: RRR. ABSENT: diastolic murmur, rubs, systolic murmur Pulses: PRESENT: normal dorsalis pedis pul GI/Abdominal exam: PRESENT: ascites. ABSENT: guarding, tenderness Extremities exam: PRESENT: full ROM. ABSENT: calf tenderness, clubbing, pedal edema Neurological exam: PRESENT: alert, awake, oriented to person, oriented to place , oriented to time, oriented to situation, CN II-XII grossly intact. ABSENT: motor sensory deficit Results Laboratory Results: 02/25/17 04:23 02/26/17 06:00 02/26/17 06:00 Sodium 138.1 Potassium 3.7 Chloride 111 H Carbon Dioxide 18 L Anion Gap 9 BUN 17 Creatinine 1.03 Est GFR ( Amer) > 60 Est GFR (Non-Af Amer) 56 L Glucose 66 L Calcium 8.3 L Impressions: Abdomen Ultrasound 02/14/17 08:26 IMPRESSION: Diffusely echogenic liver from diffuse fatty infiltration hepatocellular disease Gallbladder filled with sludge, definite gallbladder wall thickening and pericholecystic fluid. Findings worrisome for cholecystitis Percutaneous Drainage 02/15/17 08:00 IMPRESSION: CT GUIDED CHOLECYSTOSTOMY TUBE PLACEMENT. NO IMMEDIATE COMPLICATIONS. 8 [place] INDWELLING CATHETER WITH LOCKING PIGTAIL IN THE GALLBLADDER. Abdomen/Pelvis CT 02/19/17 00:00 IMPRESSION: Interval development of generalized ascites most prominent perihepatic. The gallbladder is completely decompressed and there is pericholecystic fluid. No focal walled off abscess collection. Indwelling catheter at least partially within the gallbladder. Because the gallbladder is completely decompressed, it is not possible to determine if some of the catheter holes are outside the gallbladder. Large bilateral pleural effusions with basilar atelectasis. Paracentesis Ultrasound 02/23/17 09:00 IMPRESSION: Successful ultrasound-guided diagnostic and therapeutic paracentesis Chest X-Ray 02/24/17 09:56 IMPRESSION: A limited left lower lobe pneumonia cannot be ruled out. Abdomen MRI 02/25/17 10:15 IMPRESSION: 1. THE EXTRAHEPATIC BILIARY SYSTEM IS SOMEWHAT DIFFICULT TO ASSESS DUE TO THE SMALL SIZE, MEASURING 2 MM IN DIAMETER. NO DEFINITE FILLING DEFECTS VISUALIZED. 2. CONTRACTED GALLBLADDER. 3. ASCITES AND PLEURAL EFFUSIONS. Assessment & Plan - Diagnosis (1) Sepsis Qualifiers: Sepsis type: methicillin susceptible Staphylococcus aureus Qualified Code(s): A41.01 - Sepsis due to Methicillin susceptible Staphylococcus aureus Is this a current diagnosis for this admission?: YesPlan: Resolved Leukocytosis is still persistent Patient has negative blood cultures , acsitic fluid culture is negative Chest x-ray unremarkable Urine culture negative We will continue Ancef to treat MSSA bacteremia And continue Levaquin prophylaxis for SBP (2) Acute renal failure Qualifiers: Acute renal failure type: unspecified Qualified Code(s): N17.9 - Acute kidney failure, unspecified Is this a current diagnosis for this admission?: YesPlan: Has resolved (3) Alcoholic liver failure Is this a current diagnosis for this admission?: Yes (4) Dehydration with hypernatremia Is this a current diagnosis for this admission?: Yes (5) Metabolic encephalopathy Is this a current diagnosis for this admission?: YesPlan: Resolved (6) Acute cholecystitis Is this a current diagnosis for this admission?: Yes (7) Blood in stool Is this a current diagnosis for this admission?: Yes (8) Hyperbilirubinemia Is this a current diagnosis for this admission?: YesPlan: Is persistent but in a downward trend Likely to be secondary to acute on chronic liver failure secondary to acute on chronic alcoholic hepatitis and acute shock liver patient is status post cholecystostomy tube for acute cholecystitis There is no evidence of retained common bile duct stones Liver enzymes have normalized, and it will take longer for the bilirubin to come down Unfortunately there is no specific treatment, and it will decrease with time (9) Vitamin D deficiency Is this a current diagnosis for this admission?: YesPlan: repalce with vitamin D2 50.000 units weekly (10) Hypocalcemia Is this a current diagnosis for this admission?: YesPlan: replace (11) SBP (spontaneous bacterial peritonitis) Is this a current diagnosis for this admission?: YesPlan: prophylaxis with levaquin 750 mg every other day (12) Diarrhea Is this a current diagnosis for this admission?: YesPlan: we will recheck for C Diff questran. po - Time Time Spent with patient: Patient may be transfered to medical unit Time Spent with patient: 25-34 minutes
[2017-02-26] MEDS ORDERED: ERGOCALCIFEROL (VITAMIN D2) 50000 UNIT (1.25 MG) CAPSULE PO ONE (09:00)
[2017-02-26] MEDS ORDERED: ALBUMIN HUMAN 50 ML IV SCH (09:00)
[2017-02-26] MEDS: CHOLESTYRAMINE/ASPARTAME 4 GM PACKET PO SCH ×4 (09:18→22:33)
[2017-02-26] MEDS: POTASSIUM CHLORIDE 10 MEQ TABLET.SA PO SCH (09:20)
[2017-02-26] MEDS: MAGNESIUM OXIDE 400 MG TABLET PO SCH ×2 (09:20→17:45)
[2017-02-26] MEDS: SPIRONOLACTONE 25 MG TABLET PO SCH ×2 (09:20→22:31)
[2017-02-26] MEDS: NYSTATIN CREAM 15 GM TP SCH (09:30)
[2017-02-26] MEDS: LEVOFLOXACIN 250 MG TABLET PO SCH (14:04)
[2017-02-26] MEDS: ALBUMIN HUMAN 50 ML IV SCH ×2 (22:28→23:32)
[2017-02-27 05:19] LABS: HEMATOCRIT 27.8 % (36.0-47.0); HEMOGLOBIN 9.2 g/dL (12.0-15.5); HGB HCT DIFFERENCE -0.2; MEAN CORPUSCULAR HEMOGLOBIN 30.2 pg (27.0-33.4); MEAN CORPUSCULAR VOLUME 91 fl (80-97); RED BLOOD COUNT 3.04 10^6/uL (3.72-5.28); RED CELL DISTRIBUTION WIDTH 22.5 % (11.5-14.0); WHITE BLOOD COUNT 24.4 10^3/uL (4.0-10.5)
[2017-02-27 05:36] LABS: ALANINE AMINOTRANSFERASE 15 U/L (9-52); ALBUMIN 2.3 g/dL (3.5-5.0); ALKALINE PHOSPHATASE 107 U/L (38-126); ANION GAP 12 (5-19); ASPARTATE AMINO TRANSFERASE 33 U/L (14-36); BILIRUBIN,DIRECT 9.6 mg/dL (0.0-0.4); BILIRUBIN,TOTAL 11.7 mg/dL (0.2-1.3); BLOOD UREA NITROGEN 15 mg/dL (7-20); CARBON DIOXIDE 17 mmol/L (22-30); CHLORIDE 111 mmol/L (98-107); CREATININE RESULT 1.04 mg/dL (0.52-1.25); GLUCOSE 61 mg/dL (75-110); LIPASE 26.4 U/L (23-300); POTASSIUM 3.6 mmol/L (3.6-5.0); SODIUM 139.7 mmol/L (137-145); TOTAL PROTEIN 5.3 g/dL (6.3-8.2)
[2017-02-27 05:48] LABS: BAND NEUTROPHILS % (MANUAL) 2 % (3-5); BASOPHILS % (MANUAL) 0 % (0-2); EOSINOPHILS % (MANUAL) 3 % (0-6); LYMPHOCYTES % (MANUAL) 5 % (13-45); TOTAL CELLS COUNTED 100
[2017-02-27 05:49] LABS: ANISOCYTOSIS 3+; BURR CELLS 1+; OVALOCYTES SLIGHT; POIKILOCYTOSIS 1+; SCHISTOCYTES SLIGHT; TEAR DROP CELLS SLIGHT; TOXIC GRANULATION 1+; TOXIC VACUOLATION PRESENT
[2017-02-27] MEDS: CEFAZOLIN 2 GM/D5W RTU 50 ML IV SCH ×2 (06:15→15:02)
[2017-02-27] MEDS: FUROSEMIDE INJ/PF 20 MG/2 ML SDV IV SCH ×2 (06:16→18:49)
--- NOTE | 2017-02-27 08:08 | PDOC PROGRESS REPORT ---
Subjective Progress Note for:: 02/27/17 Subjective:: Patient states she didn't sleep well last night but she appears comfortable She looks somewhat withdrawn and depressed in no acute distress\ She still has some diarrhea and there is a rectal tube in place Her blood sugars are low side a D10 infusion will be initiated The liver enzymes are finally coming down bilirubin is 11 Physical Exam Vital Signs: Temp Pulse Resp BP Pulse Ox 97.4 F 98 16 98/65 L 100 02/27/17 03:37 02/27/17 03:37 02/27/17 03:37 02/27/17 03:37 02/27/17 03:37 Intake & Output 02/26/17 02/27/17 02/28/17 00:59 00:59 00:59 Intake Total 1181 1103 210 Output Total 1030 2060 975 Balance 951 -451 -783 Weight 75.9 kg 74.3 kg 76.1 kg General appearance: PRESENT: no acute distress, thin Head exam: PRESENT: atraumatic, normocephalic Eye exam: PRESENT: scleral icterus Neck exam: ABSENT: carotid bruit, JVD, lymphadenopathy, thyromegaly Respiratory exam: PRESENT: clear to auscultation lachelle. ABSENT: rales, rhonchi, wheezes Cardiovascular exam: PRESENT: RRR. ABSENT: diastolic murmur, rubs, systolic murmur GI/Abdominal exam: PRESENT: ascites, soft. ABSENT: guarding, tenderness Neurological exam: PRESENT: awake, CN II-XII grossly intact Results Laboratory Results: 02/27/17 04:35 02/27/17 04:35 02/23/17 02/27/17 02/27/17 10:15 04:35 04:35 WBC 24.4 H RBC 3.04 L Hgb 9.2 L Hct 27.8 L MCV 91 MCH 30.2 MCHC 33.0 RDW 22.5 H Plt Count 187 Seg Neutrophils % Not Reportable Lymphocytes % Not Reportable Monocytes % Not Reportable Eosinophils % Not Reportable Basophils % Not Reportable Absolute Neutrophils Not Reportable Absolute Lymphocytes Not Reportable Absolute Monocytes Not Reportable Absolute Eosinophils Not Reportable Absolute Basophils Not Reportable Sodium 139.7 Potassium 3.6 Chloride 111 H Carbon Dioxide 17 L Anion Gap 12 BUN 15 Creatinine 1.04 Est GFR ( Amer) > 60 Est GFR (Non-Af Amer) 56 L Glucose 61 L Calcium 9.0 Total Bilirubin 11.7 H AST 33 ALT 15 Alkaline Phosphatase 107 Total Protein 5.3 L Albumin 2.3 L Lipase 26.4 Blood Type A POSITIVE Antibody Screen NEGATIVE Impressions: Abdomen Ultrasound 02/14/17 08:26 IMPRESSION: Diffusely echogenic liver from diffuse fatty infiltration hepatocellular disease Gallbladder filled with sludge, definite gallbladder wall thickening and pericholecystic fluid. Findings worrisome for cholecystitis Percutaneous Drainage 02/15/17 08:00 IMPRESSION: CT GUIDED CHOLECYSTOSTOMY TUBE PLACEMENT. NO IMMEDIATE COMPLICATIONS. 8 [place] INDWELLING CATHETER WITH LOCKING PIGTAIL IN THE GALLBLADDER. Abdomen/Pelvis CT 02/19/17 00:00 IMPRESSION: Interval development of generalized ascites most prominent perihepatic. The gallbladder is completely decompressed and there is pericholecystic fluid. No focal walled off abscess collection. Indwelling catheter at least partially within the gallbladder. Because the gallbladder is completely decompressed, it is not possible to determine if some of the catheter holes are outside the gallbladder. Large bilateral pleural effusions with basilar atelectasis. Paracentesis Ultrasound 02/23/17 09:00 IMPRESSION: Successful ultrasound-guided diagnostic and therapeutic paracentesis Chest X-Ray 02/24/17 09:56 IMPRESSION: A limited left lower lobe pneumonia cannot be ruled out. Abdomen MRI 02/25/17 10:15 IMPRESSION: 1. THE EXTRAHEPATIC BILIARY SYSTEM IS SOMEWHAT DIFFICULT TO ASSESS DUE TO THE SMALL SIZE, MEASURING 2 MM IN DIAMETER. NO DEFINITE FILLING DEFECTS VISUALIZED. 2. CONTRACTED GALLBLADDER. 3. ASCITES AND PLEURAL EFFUSIONS. Assessment & Plan - Diagnosis (1) Sepsis Qualifiers: Sepsis type: methicillin susceptible Staphylococcus aureus Qualified Code(s): A41.01 - Sepsis due to Methicillin susceptible Staphylococcus aureus Is this a current diagnosis for this admission?: Yes (2) Acute renal failure Qualifiers: Acute renal failure type: unspecified Qualified Code(s): N17.9 - Acute kidney failure, unspecified Is this a current diagnosis for this admission?: YesPlan: Resolved (3) Alcoholic liver failure Is this a current diagnosis for this admission?: YesPlan: Acute on chronic liver failure Bilirubin is coming down; follow-up LFTs (4) Dehydration with hypernatremia Is this a current diagnosis for this admission?: Yes (5) Metabolic encephalopathy Is this a current diagnosis for this admission?: YesPlan: resolved Patient is very depressed and SSRI may be indicated when liver function improved (6) Acute cholecystitis Is this a current diagnosis for this admission?: Yes (7) Blood in stool Is this a current diagnosis for this admission?: Yes (8) Hyperbilirubinemia Is this a current diagnosis for this admission?: Yes (9) Vitamin D deficiency Is this a current diagnosis for this admission?: Yes (10) Hypocalcemia Is this a current diagnosis for this admission?: Yes (11) SBP (spontaneous bacterial peritonitis) Is this a current diagnosis for this admission?: YesPlan: Continue prophylaxis with Levaquin (12) Diarrhea Is this a current diagnosis for this admission?: YesPlan: Is still persistent continue Questran (13) Hypoglycemia Is this a current diagnosis for this admission?: YesPlan: Likely because of extremely poor intake Will start a D10 infusion at 50 mL/h Encourage by mouth intake - Time Time Spent with patient: We will transfer the patient to medical unit Time Spent with patient: 25-34 minutes
[2017-02-27] MEDS: MAGNESIUM OXIDE 400 MG TABLET PO SCH ×2 (10:03→18:50)
[2017-02-27] MEDS: POTASSIUM CHLORIDE 10 MEQ TABLET.SA PO SCH ×2 (10:03→23:29)
[2017-02-27] MEDS: ALBUMIN HUMAN 50 ML IV SCH ×2 (10:03→11:34)
[2017-02-27] MEDS: SPIRONOLACTONE 25 MG TABLET PO SCH ×2 (10:03→23:31)
[2017-02-27] MEDS: CHOLESTYRAMINE/ASPARTAME 4 GM PACKET PO SCH ×2 (10:09→11:35)
[2017-02-27] MEDS: DEXTROSE 10%-WATER 1,000 ML IV PRN (11:35)
[2017-02-27] MEDS: LEVOFLOXACIN 250 MG TABLET PO SCH (15:03)
[2017-02-27] MEDS ORDERED: VANCOMYCIN HCL 0 MG in DEXTROSE 5%-WATER 250 ML IV NR (18:00)
[2017-02-27] MEDS ORDERED: FUROSEMIDE INJ/PF 40 MG/4 ML SDV IV ONE (18:06)
[2017-02-27] MEDS ORDERED: BISMUTH SUBSALICYLATE 262 MG TAB.CHEW PO PRN (18:11)
[2017-02-27] MEDS ORDERED: IMIPENEM/CILASTATIN SODIUM INJ 500 MG VIAL IV PRN (18:28)
[2017-02-27] MEDS ORDERED: IPRATROPIUM/ALBUTEROL 0.5-2.5 MG/3 ML AMPUL NEB ONE (18:30)
[2017-02-27] MEDS ORDERED: VANCOMYCIN HCL INJ 1000 MG VIAL INJ PRN (18:32)
[2017-02-27] MEDS ORDERED: VANCOMYCIN HCL 500 MG in DEXTROSE 5%-WATER 100 ML IV PRN (20:00)
[2017-02-27] MEDS ORDERED: VANCOMYCIN HCL INJ 500 MG VIAL ONE (20:07)
[2017-02-27] MEDS ORDERED: IMIPENEM/CILASTATIN SODIUM INJ 500 MG VIAL IV ONE (20:08)
[2017-02-27] MEDS: IPRATROPIUM/ALBUTEROL 0.5-2.5 MG/3 ML AMPUL NEB SCH (20:13)
[2017-02-27] MEDS: IMIPENEM/CILASTATIN SODIUM 1,000 MG in NORMAL SALINE 250 ML IV SCH (20:57)
[2017-02-27] MEDS ORDERED: DILTIAZEM HCL INJ 25 MG/5 ML VIAL IV ONE (21:38)
[2017-02-27] MEDS ORDERED: NORMAL SALINE 1000 ML 1,000 ML IV ONE (21:39)
[2017-02-27 22:34] LABS: ARTERIAL BLOOD BASE EXCESS -8.6 mmol/L
[2017-02-27] MEDS ORDERED: HEPARIN SOD (PORCINE) 5,000 UNIT/ML 1 ML SYRINGE SUBCUT ONE (23:00)
[2017-02-27] MEDS ORDERED: VANCOMYCIN HCL 500 MG in DEXTROSE 5%-WATER 100 ML IV ONE (23:30)
[2017-02-28 00:18] LABS: CREATINE KINASE MB 1.26 ng/mL (<4.55)
[2017-02-28 00:24] LABS: TROPONIN I < 0.012 ng/mL
[2017-02-28 00:28] LABS: HEMATOCRIT 25.9 % (36.0-47.0); HEMOGLOBIN 8.3 g/dL (12.0-15.5); MEAN CORPUSCULAR HEMOGLOBIN 29.8 pg (27.0-33.4); MEAN CORPUSCULAR HGB CONC 32.2 g/dL (32.0-36.0); MEAN CORPUSCULAR VOLUME 92 fl (80-97); RED CELL DISTRIBUTION WIDTH 21.9 % (11.5-14.0); WHITE BLOOD COUNT 24.5 10^3/uL (4.0-10.5)
[2017-02-28 00:45] LABS: ALANINE AMINOTRANSFERASE 16 U/L (9-52); ALBUMIN 2.2 g/dL (3.5-5.0); ALKALINE PHOSPHATASE 91 U/L (38-126); ANION GAP 14 (5-19); ASPARTATE AMINO TRANSFERASE 34 U/L (14-36); BILIRUBIN,DIRECT 7.9 mg/dL (0.0-0.4); BILIRUBIN,TOTAL 9.6 mg/dL (0.2-1.3); BLOOD UREA NITROGEN 13 mg/dL (7-20); CALCIUM 8.4 mg/dL (8.4-10.2); CARBON DIOXIDE 15 mmol/L (22-30); CHLORIDE 110 mmol/L (98-107); CREATININE RESULT 0.93 mg/dL (0.52-1.25); GLUCOSE 115 mg/dL (75-110); POTASSIUM 3.2 mmol/L (3.6-5.0); SODIUM 138.7 mmol/L (137-145)
[2017-02-28] MEDS ORDERED: IMIPENEM/CILASTATIN SODIUM INJ 500 MG VIAL IV ONE (00:46)
[2017-02-28 00:53] LABS: TOTAL CELLS COUNTED 100
[2017-02-28 00:54] LABS: BASOPHILS % (MANUAL) 0 % (0-2); EOSINOPHILS % (MANUAL) 0 % (0-6); LYMPHOCYTES % (MANUAL) 9 % (13-45)
[2017-02-28 00:57] LABS: ANISOCYTOSIS 2+; BURR CELLS 1+; POIKILOCYTOSIS 2+; POLYCHROMASIA 1+
[2017-02-28 00:58] LABS: TARGET CELLS 1+; TEAR DROP CELLS SLIGHT
[2017-02-28 01:00] LABS: TOXIC GRANULATION 1+; TOXIC VACUOLATION PRESENT
[2017-02-28 01:01] LABS: BAND NEUTROPHILS % (MANUAL) 15 % (3-5)
[2017-02-28] MEDS: IMIPENEM/CILASTATIN SODIUM 1,000 MG in NORMAL SALINE 250 ML IV SCH ×4 (01:02→17:27)
[2017-02-28] MEDS ORDERED: NORMAL SALINE 1000 ML 1,000 ML IV ONE (03:40)
[2017-02-28] MEDS: MAGNESIUM SULFATE/D5W 100 ML IV SCH ×2 (04:19→05:16)
[2017-02-28] MEDS: FUROSEMIDE INJ/PF 20 MG/2 ML SDV IV SCH ×2 (05:16→17:27)
[2017-02-28] MEDS: HEPARIN SOD (PORCINE) 5,000 UNIT/ML 1 ML SYRINGE SUBCUT SCH ×3 (05:16→22:06)
[2017-02-28] MEDS: DEXTROSE 10%-WATER 1,000 ML IV PRN (05:36)
[2017-02-28] MEDS: POTASSI CL 20 MEQ/50 ML RIDER 50 ML IV SCH ×2 (05:40→06:50)
[2017-02-28 06:36] LABS: HEMATOCRIT 27.9 % (36.0-47.0); HGB HCT DIFFERENCE -0.9; MEAN CORPUSCULAR HEMOGLOBIN 29.8 pg (27.0-33.4); MEAN CORPUSCULAR HGB CONC 32.3 g/dL (32.0-36.0); MEAN CORPUSCULAR VOLUME 92 fl (80-97); RED BLOOD COUNT 3.03 10^6/uL (3.72-5.28); RED CELL DISTRIBUTION WIDTH 22.7 % (11.5-14.0)
[2017-02-28 06:50] LABS: ALANINE AMINOTRANSFERASE 13 U/L (9-52); ALBUMIN 2.1 g/dL (3.5-5.0); ALKALINE PHOSPHATASE 95 U/L (38-126); ANION GAP 12 (5-19); ASPARTATE AMINO TRANSFERASE 37 U/L (14-36); BILIRUBIN,DIRECT 7.9 mg/dL (0.0-0.4); BILIRUBIN,TOTAL 9.5 mg/dL (0.2-1.3); BLOOD UREA NITROGEN 13 mg/dL (7-20); CALCIUM 8.3 mg/dL (8.4-10.2); CARBON DIOXIDE 15 mmol/L (22-30); CHLORIDE 111 mmol/L (98-107); CREATININE RESULT 0.94 mg/dL (0.52-1.25); GLUCOSE 117 mg/dL (75-110); POTASSIUM 3.5 mmol/L (3.6-5.0); SODIUM 138.2 mmol/L (137-145); TOTAL PROTEIN 4.9 g/dL (6.3-8.2)
[2017-02-28 06:56] LABS: CREATINE KINASE MB 1.24 ng/mL (<4.55)
[2017-02-28 06:59] LABS: CREATINE KINASE < 20 U/L (30-135)
[2017-02-28 07:01] LABS: TROPONIN I < 0.012 ng/mL
[2017-02-28 07:08] LABS: BAND NEUTROPHILS % (MANUAL) 5 % (3-5); BASOPHILS % (MANUAL) 0 % (0-2); EOSINOPHILS % (MANUAL) 0 % (0-6); LYMPHOCYTES % (MANUAL) 5 % (13-45); TOTAL CELLS COUNTED 100
[2017-02-28 07:10] LABS: ANISOCYTOSIS 2+; HYPOCHROMASIA SLIGHT
[2017-02-28 07:11] LABS: BURR CELLS SLIGHT; HELMET CELLS SLIGHT; OVALOCYTES SLIGHT; POIKILOCYTOSIS SLIGHT
[2017-02-28] MEDS: IPRATROPIUM/ALBUTEROL 0.5-2.5 MG/3 ML AMPUL NEB SCH ×3 (08:07→20:05)
[2017-02-28] MEDS: POTASSIUM CHLORIDE 10 MEQ TABLET.SA PO SCH ×2 (09:01→22:06)
[2017-02-28] MEDS: MAGNESIUM OXIDE 400 MG TABLET PO SCH ×2 (09:02→17:27)
[2017-02-28] MEDS: SPIRONOLACTONE 25 MG TABLET PO SCH ×2 (09:02→22:07)
[2017-02-28] MEDS: ZINC OXIDE 20% OINTMENT 28.35 GM TP SCH (09:53)
[2017-02-28] MEDS: VANCOMYCIN HCL 750 MG in DEXTROSE 5%-WATER 250 ML IV SCH ×2 (09:53→22:13)
[2017-02-28] MEDS: NYSTATIN TOPICAL POWDER 15 GM TP SCH ×2 (09:54→17:28)
[2017-02-28] MEDS: NYSTATIN CREAM 15 GM TP SCH (09:54)
[2017-02-28] MEDS ORDERED: NYSTATIN TOPICAL POWDER 15 GM TP SCH (10:00)
--- NOTE | 2017-02-28 10:21 | EKG REPORT ---
SEVERITY:- BORDERLINE ECG - SINUS TACHYCARDIA LOW VOLTAGE IN FRONTAL LEADS BORDERLINE T ABNORMALITIES, ANT-LAT LEADS : Confirmed by: Derek Keenan 28-Feb-2017 10:21:13
--- NOTE | 2017-02-28 10:21 | EKG REPORT ---
SEVERITY:- BORDERLINE ECG - SINUS TACHYCARDIA LOW VOLTAGE THROUGHOUT : Confirmed by: Derek Keenan 28-Feb-2017 10:21:22
[2017-02-28] MEDS ORDERED: ESCITALOPRAM OXALATE 10 MG TABLET PO ONE (13:15)
--- NOTE | 2017-02-28 14:26 | PDOC PROGRESS REPORT ---
Subjective Progress Note for:: 02/28/17 Subjective:: patient is extremely depressed. Does not eat She is complaining of shortness of breath, but has no hypoxemia She has a cough is nonproductive Chest x-ray performed yesterday showed bilateral pneumonia and patient was started on imipenem and vancomycin Bilirubin is finally coming down to 9 Physical Exam Vital Signs: Temp Pulse Resp BP Pulse Ox 97.7 F 133 H 19 124/73 98 02/28/17 11:40 02/28/17 14:00 02/28/17 11:40 02/28/17 11:40 02/28/17 11:40 Intake & Output 02/27/17 02/28/17 03/01/17 00:59 00:59 00:59 Intake Total 1103 1408 1768 Output Total 2060 7985 850 Balance -297 -925 918 Weight 74.3 kg 76.1 kg 74.4 kg General appearance: PRESENT: cooperative, mild distress Head exam: PRESENT: atraumatic, normocephalic Eye exam: PRESENT: PERRLA, scleral icterus Neck exam: ABSENT: carotid bruit, JVD, lymphadenopathy, thyromegaly Respiratory exam: PRESENT: rhonchi - Bilaterally Cardiovascular exam: PRESENT: RRR. ABSENT: diastolic murmur, rubs, systolic murmur Extremities exam: PRESENT: full ROM. ABSENT: calf tenderness, clubbing, pedal edema Neurological exam: PRESENT: awake, CN II-XII grossly intact Results Laboratory Results: 02/28/17 06:04 02/28/17 06:04 02/27/17 02/28/17 02/28/17 22:15 00:10 00:10 WBC 24.5 H RBC 2.80 L Hgb 8.3 L Hct 25.9 L MCV 92 MCH 29.8 MCHC 32.2 RDW 21.9 H Plt Count 147 L Seg Neutrophils % Not Reportable Lymphocytes % Not Reportable Monocytes % Not Reportable Eosinophils % Not Reportable Basophils % Not Reportable Absolute Neutrophils Not Reportable Absolute Lymphocytes Not Reportable Absolute Monocytes Not Reportable Absolute Eosinophils Not Reportable Absolute Basophils Not Reportable Carbonic Acid 0.70 L HCO3/H2CO3 Ratio 20:1 ABG pH 7.42 ABG pCO2 23.1 L ABG pO2 87.9 ABG HCO3 14.5 L ABG O2 Saturation 97.0 ABG Base Excess -8.6 FiO2 ROOM AIR Sodium 138.7 Potassium 3.2 L Chloride 110 H Carbon Dioxide 15 L Anion Gap 14 BUN 13 Creatinine 0.93 Est GFR ( Amer) > 60 Est GFR (Non-Af Amer) > 60 Glucose 115 H Calcium 8.4 Total Bilirubin 9.6 H AST 34 ALT 16 Alkaline Phosphatase 91 Total Protein 5.0 L Albumin 2.2 L TSH 02/28/17 02/28/17 02/28/17 00:10 06:04 06:04 WBC 26.0 H RBC 3.03 L Hgb 9.0 L Hct 27.9 L MCV 92 MCH 29.8 MCHC 32.3 RDW 22.7 H Plt Count 158 Seg Neutrophils % Not Reportable Lymphocytes % Not Reportable Monocytes % Not Reportable Eosinophils % Not Reportable Basophils % Not Reportable Absolute Neutrophils Not Reportable Absolute Lymphocytes Not Reportable Absolute Monocytes Not Reportable Absolute Eosinophils Not Reportable Absolute Basophils Not Reportable Carbonic Acid HCO3/H2CO3 Ratio ABG pH ABG pCO2 ABG pO2 ABG HCO3 ABG O2 Saturation ABG Base Excess FiO2 Sodium 138.2 Potassium 3.5 L Chloride 111 H Carbon Dioxide 15 L Anion Gap 12 BUN 13 Creatinine 0.94 Est GFR ( Amer) > 60 Est GFR (Non-Af Amer) > 60 Glucose 117 H Calcium 8.3 L Total Bilirubin 9.5 H AST 37 H ALT 13 Alkaline Phosphatase 95 Total Protein 4.9 L Albumin 2.1 L TSH 7.71 H 02/23/17 11:17 Ascities Fluid Gram Stain - Final 02/23/17 11:17 Ascities Fluid Body Fluid Culture - Final NO AEROBIC OR ANAEROBIC ORGANISMS RECOVERED 02/27/17 02/27/17 02/28/17 23:40 23:40 06:04 Creatine Kinase < 20 L < 20 L CK-MB (CK-2) 1.26 Troponin I < 0.012 02/28/17 06:04 Creatine Kinase CK-MB (CK-2) 1.24 Troponin I < 0.012 Impressions: Abdomen Ultrasound 02/14/17 08:26 IMPRESSION: Diffusely echogenic liver from diffuse fatty infiltration hepatocellular disease Gallbladder filled with sludge, definite gallbladder wall thickening and pericholecystic fluid. Findings worrisome for cholecystitis Percutaneous Drainage 02/15/17 08:00 IMPRESSION: CT GUIDED CHOLECYSTOSTOMY TUBE PLACEMENT. NO IMMEDIATE COMPLICATIONS. 8 [place] INDWELLING CATHETER WITH LOCKING PIGTAIL IN THE GALLBLADDER. Abdomen/Pelvis CT 02/19/17 00:00 IMPRESSION: Interval development of generalized ascites most prominent perihepatic. The gallbladder is completely decompressed and there is pericholecystic fluid. No focal walled off abscess collection. Indwelling catheter at least partially within the gallbladder. Because the gallbladder is completely decompressed, it is not possible to determine if some of the catheter holes are outside the gallbladder. Large bilateral pleural effusions with basilar atelectasis. Paracentesis Ultrasound 02/23/17 09:00 IMPRESSION: Successful ultrasound-guided diagnostic and therapeutic paracentesis Abdomen MRI 02/25/17 10:15 IMPRESSION: 1. THE EXTRAHEPATIC BILIARY SYSTEM IS SOMEWHAT DIFFICULT TO ASSESS DUE TO THE SMALL SIZE, MEASURING 2 MM IN DIAMETER. NO DEFINITE FILLING DEFECTS VISUALIZED. 2. CONTRACTED GALLBLADDER. 3. ASCITES AND PLEURAL EFFUSIONS. Chest X-Ray 02/27/17 16:38 IMPRESSION: Low lung volumes results in bronchovascular crowding; cannot exclude superimposed lower lobe consolidation. Right upper quadrant surgical drain. Assessment & Plan - Diagnosis (1) Sepsis Qualifiers: Sepsis type: methicillin susceptible Staphylococcus aureus Qualified Code(s): A41.01 - Sepsis due to Methicillin susceptible Staphylococcus aureus Is this a current diagnosis for this admission?: Yes (2) Acute renal failure Qualifiers: Acute renal failure type: unspecified Qualified Code(s): N17.9 - Acute kidney failure, unspecified Is this a current diagnosis for this admission?: Yes (3) Alcoholic liver failure Is this a current diagnosis for this admission?: Yes (4) Dehydration with hypernatremia Is this a current diagnosis for this admission?: Yes (5) Metabolic encephalopathy Is this a current diagnosis for this admission?: Yes (6) Acute cholecystitis Is this a current diagnosis for this admission?: Yes (7) Blood in stool Is this a current diagnosis for this admission?: Yes (8) Hyperbilirubinemia Is this a current diagnosis for this admission?: Yes (9) Vitamin D deficiency Is this a current diagnosis for this admission?: Yes (10) Hypocalcemia Is this a current diagnosis for this admission?: Yes (11) SBP (spontaneous bacterial peritonitis) Is this a current diagnosis for this admission?: Yes (12) Diarrhea Is this a current diagnosis for this admission?: Yes (13) Hypoglycemia Is this a current diagnosis for this admission?: YesPlan: Is persistent continue D10 (14) Depression Qualifiers: Depression Type: unspecified Qualified Code(s): F32.9 - Major depressive disorder, single episode, unspecified Is this a current diagnosis for this admission?: YesPlan: Stop Lexapro at 5 mg daily (15) Pneumonia Qualifiers: Pneumonia type: due to unspecified organism Lung location: unspecified part of lung Is this a current diagnosis for this admission?: YesPlan: Treat as hospital-acquired pneumonia Continue imipenem and vancomycin - Time Time Spent with patient: Overall patient's condition has improved greatly Continue the present management Encourage patient to to eat better We initiated SSRI Time Spent with patient: 25-34 minutes
[2017-02-28 14:32] LABS: CREATINE KINASE MB 1.58 ng/mL (<4.55)
[2017-02-28 14:36] LABS: TROPONIN I < 0.012 ng/mL
[2017-02-28] MEDS ORDERED: METOPROLOL TARTRATE PF/INJ 5 MG/5 ML SDV IV ONE (16:00)
[2017-03-01] MEDS: METOPROLOL TARTRATE PF/INJ 5 MG/5 ML SDV IV SCH ×5 (00:14→23:39)
[2017-03-01] MEDS: IMIPENEM/CILASTATIN SODIUM 1,000 MG in NORMAL SALINE 250 ML IV SCH ×5 (00:14→23:38)
[2017-03-01] MEDS: DEXTROSE 10%-WATER 1,000 ML IV PRN ×2 (01:27→21:38)
[2017-03-01 05:21] LABS: HEMATOCRIT 27.7 % (36.0-47.0); HEMOGLOBIN 8.8 g/dL (12.0-15.5); HGB HCT DIFFERENCE -1.3; MEAN CORPUSCULAR HEMOGLOBIN 29.7 pg (27.0-33.4); MEAN CORPUSCULAR VOLUME 93 fl (80-97); RED BLOOD COUNT 2.98 10^6/uL (3.72-5.28); RED CELL DISTRIBUTION WIDTH 21.7 % (11.5-14.0)
[2017-03-01 05:36] LABS: ALANINE AMINOTRANSFERASE 19 U/L (9-52); ALKALINE PHOSPHATASE 107 U/L (38-126); ANION GAP 10 (5-19); ASPARTATE AMINO TRANSFERASE 43 U/L (14-36); BILIRUBIN,DIRECT 8.8 mg/dL (0.0-0.4); BILIRUBIN,TOTAL 10.5 mg/dL (0.2-1.3); BLOOD UREA NITROGEN 14 mg/dL (7-20); CALCIUM 8.5 mg/dL (8.4-10.2); CARBON DIOXIDE 15 mmol/L (22-30); CHLORIDE 110 mmol/L (98-107); CREATININE RESULT 0.96 mg/dL (0.52-1.25); GLUCOSE 113 mg/dL (75-110); SODIUM 135.3 mmol/L (137-145); TOTAL PROTEIN 5.3 g/dL (6.3-8.2)
[2017-03-01] MEDS: FUROSEMIDE INJ/PF 20 MG/2 ML SDV IV SCH (05:38)
[2017-03-01] MEDS: HEPARIN SOD (PORCINE) 5,000 UNIT/ML 1 ML SYRINGE SUBCUT SCH ×2 (05:38→21:33)
[2017-03-01 05:58] LABS: TOTAL CELLS COUNTED 100
[2017-03-01 05:59] LABS: BAND NEUTROPHILS % (MANUAL) 18 % (3-5); BASOPHILS % (MANUAL) 0 % (0-2); EOSINOPHILS % (MANUAL) 2 % (0-6); LYMPHOCYTES % (MANUAL) 10 % (13-45); TOXIC GRANULATION 1+; TOXIC VACUOLATION PRESENT
[2017-03-01 06:00] LABS: ANISOCYTOSIS 3+
[2017-03-01 06:02] LABS: BURR CELLS 2+; HYPOCHROMASIA SLIGHT; OVALOCYTES SLIGHT; POIKILOCYTOSIS 1+; POTASSIUM 4.9 mmol/L (3.6-5.0); TARGET CELLS SLIGHT; TEAR DROP CELLS SLIGHT
[2017-03-01] MEDS: IPRATROPIUM/ALBUTEROL 0.5-2.5 MG/3 ML AMPUL NEB SCH ×3 (07:55→20:15)
[2017-03-01] MEDS: VANCOMYCIN HCL 750 MG in DEXTROSE 5%-WATER 250 ML IV SCH ×2 (09:00→21:34)
[2017-03-01] MEDS: ZINC OXIDE 20% OINTMENT 28.35 GM TP SCH (09:01)
[2017-03-01] MEDS: POTASSIUM CHLORIDE 10 MEQ TABLET.SA PO SCH (09:01)
[2017-03-01] MEDS: NYSTATIN CREAM 15 GM TP SCH (09:01)
[2017-03-01] MEDS: NYSTATIN TOPICAL POWDER 15 GM TP SCH ×2 (09:01→17:38)
[2017-03-01] MEDS: SPIRONOLACTONE 25 MG TABLET PO SCH ×2 (09:02→21:32)
[2017-03-01] MEDS: ESCITALOPRAM OXALATE 10 MG TABLET PO SCH (09:02)
[2017-03-01] MEDS: MAGNESIUM OXIDE 400 MG TABLET PO SCH ×2 (09:02→17:37)
[2017-03-01] MEDS ORDERED: NORMAL SALINE 500 ML IV ONE (11:30)
--- NOTE | 2017-03-01 11:43 | PDOC PROGRESS REPORT ---
Subjective Progress Note for:: 03/01/17 Subjective:: Patient looks very ill She's not communicating well She is is tachypneic The white blood count has climbed up to 38,000 Condition seems to have worsened overnight She's less jaundiced Physical Exam Vital Signs: Temp Pulse Resp BP Pulse Ox 97.7 F 100 18 113/68 91 L 03/01/17 07:53 03/01/17 07:58 03/01/17 07:58 03/01/17 07:53 03/01/17 07:58 Intake & Output 02/28/17 03/01/17 03/02/17 00:59 00:59 00:59 Intake Total 1408 3248 1074 Output Total 2075 950 225 Balance -667 2298 849 Weight 76.1 kg 74.4 kg 80 kg General appearance: PRESENT: mild distress, thin Head exam: PRESENT: atraumatic, normocephalic Eye exam: PRESENT: PERRLA, scleral icterus Neck exam: ABSENT: carotid bruit, JVD, lymphadenopathy, thyromegaly Respiratory exam: PRESENT: accessory muscle use, decreased breath sounds, tachypnea Cardiovascular exam: PRESENT: tachycardia Pulses: PRESENT: normal dorsalis pedis pul GI/Abdominal exam: PRESENT: firm. ABSENT: guarding, rebound, tenderness Extremities exam: PRESENT: full ROM. ABSENT: calf tenderness, clubbing, pedal edema Musculoskeletal exam: PRESENT: full ROM Neurological exam: PRESENT: altered, CN II-XII grossly intact Results Laboratory Results: 03/01/17 05:02 03/01/17 05:02 03/01/17 03/01/17 05:02 05:02 WBC 38.3 H* RBC 2.98 L Hgb 8.8 L Hct 27.7 L MCV 93 MCH 29.7 MCHC 32.0 RDW 21.7 H Plt Count 130 L Seg Neutrophils % Not Reportable Lymphocytes % Not Reportable Monocytes % Not Reportable Eosinophils % Not Reportable Basophils % Not Reportable Absolute Neutrophils Not Reportable Absolute Lymphocytes Not Reportable Absolute Monocytes Not Reportable Absolute Eosinophils Not Reportable Absolute Basophils Not Reportable Sodium 135.3 L Potassium 4.9 D Chloride 110 H Carbon Dioxide 15 L Anion Gap 10 BUN 14 Creatinine 0.96 Est GFR ( Amer) > 60 Est GFR (Non-Af Amer) > 60 Glucose 113 H Calcium 8.5 Total Bilirubin 10.5 H AST 43 H ALT 19 Alkaline Phosphatase 107 Total Protein 5.3 L Albumin 2.0 L 02/27/17 02/27/17 02/28/17 23:40 23:40 06:04 Creatine Kinase < 20 L < 20 L CK-MB (CK-2) 1.26 Troponin I < 0.012 02/28/17 02/28/17 02/28/17 06:04 13:40 13:40 Creatine Kinase < 20 L CK-MB (CK-2) 1.24 1.58 Troponin I < 0.012 < 0.012 Impressions: Abdomen Ultrasound 02/14/17 08:26 IMPRESSION: Diffusely echogenic liver from diffuse fatty infiltration hepatocellular disease Gallbladder filled with sludge, definite gallbladder wall thickening and pericholecystic fluid. Findings worrisome for cholecystitis Percutaneous Drainage 02/15/17 08:00 IMPRESSION: CT GUIDED CHOLECYSTOSTOMY TUBE PLACEMENT. NO IMMEDIATE COMPLICATIONS. 8 [place] INDWELLING CATHETER WITH LOCKING PIGTAIL IN THE GALLBLADDER. Abdomen/Pelvis CT 02/19/17 00:00 IMPRESSION: Interval development of generalized ascites most prominent perihepatic. The gallbladder is completely decompressed and there is pericholecystic fluid. No focal walled off abscess collection. Indwelling catheter at least partially within the gallbladder. Because the gallbladder is completely decompressed, it is not possible to determine if some of the catheter holes are outside the gallbladder. Large bilateral pleural effusions with basilar atelectasis. Paracentesis Ultrasound 02/23/17 09:00 IMPRESSION: Successful ultrasound-guided diagnostic and therapeutic paracentesis Abdomen MRI 02/25/17 10:15 IMPRESSION: 1. THE EXTRAHEPATIC BILIARY SYSTEM IS SOMEWHAT DIFFICULT TO ASSESS DUE TO THE SMALL SIZE, MEASURING 2 MM IN DIAMETER. NO DEFINITE FILLING DEFECTS VISUALIZED. 2. CONTRACTED GALLBLADDER. 3. ASCITES AND PLEURAL EFFUSIONS. Chest X-Ray 02/27/17 16:38 IMPRESSION: Low lung volumes results in bronchovascular crowding; cannot exclude superimposed lower lobe consolidation. Right upper quadrant surgical drain. Assessment & Plan - Diagnosis (1) Sepsis Qualifiers: Sepsis type: methicillin susceptible Staphylococcus aureus Qualified Code(s): A41.01 - Sepsis due to Methicillin susceptible Staphylococcus aureus Is this a current diagnosis for this admission?: YesPlan: Patient appears to be septic again She has tachycardia leukocytosis tachypnea , mild metabolic acidosis She was placed on broad-spectrum is antibiotic 2 days ago vancomycin and imipenem We will send her for CT of the chest CT abdomen and pelvis with IV contrast to rule out intra-abdominal abscess or empyema Continue broad spectrum antibiotics Lactic acid , venous gas will be ordered IV fluids ordered Patient may need to be transferred to the intensive care unit if her condition worsens during the day (2) Acute renal failure Qualifiers: Acute renal failure type: unspecified Qualified Code(s): N17.9 - Acute kidney failure, unspecified Is this a current diagnosis for this admission?: YesPlan: Has resolved (3) Alcoholic liver failure Is this a current diagnosis for this admission?: YesPlan: Acute on chronic liver failure secondary to shock Has improved bilirubin is on the downward trend (4) Metabolic encephalopathy Is this a current diagnosis for this admission?: Yes (5) Acute cholecystitis Is this a current diagnosis for this admission?: YesPlan: patient has a cholecystostomy tube No evidence of retained common bile duct stones Patient may have developed an intra-abdominal abscess; awaiting results of CAT scan abdomen and pelvis we will add Flagyl to the present antibiotic management (6) Hyperbilirubinemia Is this a current diagnosis for this admission?: Yes (7) Vitamin D deficiency Is this a current diagnosis for this admission?: YesPlan: Replace (8) Hypocalcemia Is this a current diagnosis for this admission?: YesPlan: Improving (9) SBP (spontaneous bacterial peritonitis) Is this a current diagnosis for this admission?: YesPlan: On admission (10) Diarrhea Is this a current diagnosis for this admission?: YesPlan: Still persistent A rectal tube was placed (11) Hypoglycemia Is this a current diagnosis for this admission?: YesPlan: Persistent Patient's blood sugars are staying above 100 with D10 (12) Depression Qualifiers: Depression Type: unspecified Qualified Code(s): F32.9 - Major depressive disorder, single episode, unspecified Is this a current diagnosis for this admission?: YesPlan: Lexapro was initiated yesterday (13) Pneumonia Qualifiers: Pneumonia type: due to unspecified organism Lung location: unspecified part of lung Is this a current diagnosis for this admission?: YesPlan: Bilateral pneumonia on last chest x-ray To reevaluate with CT of the chest - Time Time Spent with patient: Patient's condition is very guarded at this point If she needs surgical intervention, transfer to tertiary center may be needed Time Spent with patient: 35 or more minutes
[2017-03-01] MEDS: METRONIDAZOLE 500 MG/NS RTU 100 ML IV SCH ×2 (12:02→17:35)
[2017-03-01] MEDS: NORMAL SALINE 1000 ML 1,000 ML IV PRN ×2 (12:04→17:45)
[2017-03-01 12:05] LABS: VENOUS BLOOD BASE EXCESS -10.7 mmol/L; VENOUS BLOOD HCO3 14.3 mmol/L (20-32); VENOUS BLOOD PCO2 29.2 mmHg (35-63); VENOUS BLOOD PH 7.31 (7.30-7.42)
[2017-03-01 17:52] LABS: PATH REVIEW PATHOLOGIST REVIEWED
[2017-03-01] MEDS ORDERED: FUROSEMIDE INJ/PF 20 MG/2 ML SDV IV ONE (18:04)
[2017-03-02] MEDS: METOPROLOL TARTRATE PF/INJ 5 MG/5 ML SDV IV SCH ×2 (05:13→11:35)
[2017-03-02] MEDS: IMIPENEM/CILASTATIN SODIUM 1,000 MG in NORMAL SALINE 250 ML IV SCH ×4 (05:14→23:26)
[2017-03-02] MEDS: IPRATROPIUM/ALBUTEROL 0.5-2.5 MG/3 ML AMPUL NEB SCH ×2 (07:44→14:13)
[2017-03-02 09:47] LABS: WHITE BLOOD COUNT 38.3 10^3/uL (4.0-10.5)
[2017-03-02 10:07] LABS: ANION GAP 10 (5-19); BLOOD UREA NITROGEN 14 mg/dL (7-20); CALCIUM 8.7 mg/dL (8.4-10.2); CARBON DIOXIDE 15 mmol/L (22-30); CHLORIDE 110 mmol/L (98-107); GLUCOSE 119 mg/dL (75-110); POTASSIUM 4.7 mmol/L (3.6-5.0); SODIUM 135.3 mmol/L (137-145)
[2017-03-02] MEDS: HEPARIN SOD (PORCINE) 5,000 UNIT/ML 1 ML SYRINGE SUBCUT SCH (10:39)
[2017-03-02] MEDS: ESCITALOPRAM OXALATE 10 MG TABLET PO SCH (10:40)
[2017-03-02] MEDS: SPIRONOLACTONE 25 MG TABLET PO SCH (10:40)
[2017-03-02] MEDS: MAGNESIUM OXIDE 400 MG TABLET PO SCH (10:40)
[2017-03-02] MEDS: ZINC OXIDE 20% OINTMENT 28.35 GM TP SCH (10:41)
[2017-03-02] MEDS: NYSTATIN CREAM 15 GM TP SCH (10:41)
[2017-03-02] MEDS: NYSTATIN TOPICAL POWDER 15 GM TP SCH (10:41)
[2017-03-02] MEDS ORDERED: FUROSEMIDE INJ/PF 20 MG/2 ML SDV IV ONE (11:00)
[2017-03-02] MEDS: VANCOMYCIN HCL 750 MG in DEXTROSE 5%-WATER 250 ML IV SCH (11:33)
[2017-03-02] MEDS: MORPHINE SULFATE 10 MG/ML INJ IV PRN (15:18)
--- NOTE | 2017-03-02 15:20 | PDOC PROGRESS REPORT ---
Subjective Progress Note for:: 03/02/17 Subjective:: Patient has had significant worsening in her clinical status today. She has had worsening encephalopathy and become hypothermic. I cannot obtain review of systems from patient secondary to encephalopathic state. Physical Exam Vital Signs: Temp Pulse Resp BP Pulse Ox 97.2 F 73 18 107/75 94 03/01/17 19:55 03/02/17 14:00 03/02/17 14:00 03/02/17 08:06 03/02/17 14:00 Intake & Output 03/01/17 03/02/17 03/03/17 06:59 06:59 06:59 Intake Total 2672 3588 100 Output Total 875 865 200 Balance 1797 2723 -100 Weight 80 kg 83.5 kg GENERAL: moaning constantly, unresponsive HEENT: moist mucous membranes, no JVD, midline trachea RESPIRATORY: Bilateral rhonchi CARDIAC: Regular rate and rhythm, no murmurs/gallops/rubs ABDOMEN: Soft, distended, obvious ascites, cholecystostomy tube a significant amount of drainage around tube site EXTREMETIES: No edema, cyanosis, clubbing NEUROLOGIC: Encephalopathic SKIN: Jaundiced Results Laboratory Results: 03/01/17 05:02 03/02/17 09:28 02/28/17 03/01/17 03/01/17 00:10 05:02 19:20 WBC 24.5 H 38.3 H* RBC 2.80 L 2.98 L Hgb 8.3 L 8.8 L Hct 25.9 L 27.7 L MCV 92 93 MCH 29.8 29.7 MCHC 32.2 32.0 RDW 21.9 H 21.7 H Plt Count 147 L 130 L Sodium Potassium Chloride Carbon Dioxide Anion Gap BUN Creatinine Est GFR ( Amer) Est GFR (Non-Af Amer) Glucose Lactic Acid 2.0 Calcium 03/02/17 09:28 WBC RBC Hgb Hct MCV MCH MCHC RDW Plt Count Sodium 135.3 L Potassium 4.7 Chloride 110 H Carbon Dioxide 15 L Anion Gap 10 BUN 14 Creatinine 0.90 Est GFR ( Amer) > 60 Est GFR (Non-Af Amer) > 60 Glucose 119 H Lactic Acid Calcium 8.7 02/27/17 02/27/17 02/28/17 23:40 23:40 06:04 Creatine Kinase < 20 L < 20 L CK-MB (CK-2) 1.26 Troponin I < 0.012 02/28/17 02/28/17 02/28/17 06:04 13:40 13:40 Creatine Kinase < 20 L CK-MB (CK-2) 1.24 1.58 Troponin I < 0.012 < 0.012 Impressions: Abdomen Ultrasound 02/14/17 08:26 IMPRESSION: Diffusely echogenic liver from diffuse fatty infiltration hepatocellular disease Gallbladder filled with sludge, definite gallbladder wall thickening and pericholecystic fluid. Findings worrisome for cholecystitis Percutaneous Drainage 02/15/17 08:00 IMPRESSION: CT GUIDED CHOLECYSTOSTOMY TUBE PLACEMENT. NO IMMEDIATE COMPLICATIONS. 8 [place] INDWELLING CATHETER WITH LOCKING PIGTAIL IN THE GALLBLADDER. Paracentesis Ultrasound 02/23/17 09:00 IMPRESSION: Successful ultrasound-guided diagnostic and therapeutic paracentesis Abdomen MRI 02/25/17 10:15 IMPRESSION: 1. THE EXTRAHEPATIC BILIARY SYSTEM IS SOMEWHAT DIFFICULT TO ASSESS DUE TO THE SMALL SIZE, MEASURING 2 MM IN DIAMETER. NO DEFINITE FILLING DEFECTS VISUALIZED. 2. CONTRACTED GALLBLADDER. 3. ASCITES AND PLEURAL EFFUSIONS. Chest X-Ray 02/27/17 16:38 IMPRESSION: Low lung volumes results in bronchovascular crowding; cannot exclude superimposed lower lobe consolidation. Right upper quadrant surgical drain. Abdomen/Pelvis CT 03/01/17 11:23 IMPRESSION: The tubes and lines in appropriate positioning. Stable ascites in the abdomen and pelvis with third-spacing along the abdominal wall. Chest CT 03/01/17 11:23 IMPRESSION: Small bilateral pleural effusions right greater than left Alveolar and interstitial pattern throughout both lungs likely resolving pneumonia or edema. Assessment & Plan - Diagnosis (1) Sepsis Qualifiers: Sepsis type: methicillin susceptible Staphylococcus aureus Qualified Code(s): A41.01 - Sepsis due to Methicillin susceptible Staphylococcus aureus Is this a current diagnosis for this admission?: YesPlan: Patient's clinical situation is much worse today despite broad-spectrum antibiotic coverage and placement cholecystostomy tube. I have had a long discussion with patient's daughter who is present at the bedside regarding deterioration in patient's clinical condition due to sepsis, pneumonia, acute cholecystitis, end-stage liver disease. After much discussion regarding all of patient's illnesses patient's daughter has decided to make patient comfort measures only and DO NOT RESUSCITATE status. (2) Pneumonia Qualifiers: Pneumonia type: due to unspecified organism Lung location: unspecified part of lung Is this a current diagnosis for this admission?: Yes (3) Bacteremia Is this a current diagnosis for this admission?: Yes (4) Acute cholecystitis Is this a current diagnosis for this admission?: Yes (5) Alcoholic liver failure Is this a current diagnosis for this admission?: YesPlan: Patient has end-stage liver disease secondary to alcohol abuse. She appears to be eminently dying at this time and her daughter has made her comfort measures only. (6) Acute renal failure Qualifiers: Acute renal failure type: unspecified Qualified Code(s): N17.9 - Acute kidney failure, unspecified Is this a current diagnosis for this admission?: Yes (7) Anemia Qualifiers: Anemia type: other cause Other causes of anemia: chronic disease, other Qualified Code(s): D63.8 - Anemia in other chronic diseases classified elsewhere Is this a current diagnosis for this admission?: Yes (8) Diarrhea Is this a current diagnosis for this admission?: YesPlan: C. difficile negative 2. (9) E-coli UTI Is this a current diagnosis for this admission?: Yes (10) Metabolic encephalopathy Is this a current diagnosis for this admission?: Yes - Time Time Spent with patient: 35 or more minutes
[2017-03-02] MEDS ORDERED: FUROSEMIDE INJ/PF 20 MG/2 ML SDV IV SCH (22:00)
[2017-03-03] MEDS: IMIPENEM/CILASTATIN SODIUM 1,000 MG in NORMAL SALINE 250 ML IV SCH ×3 (05:14→17:15)
[2017-03-03 05:23] LABS: PROTHROMBIN TIME 39.3 SEC (11.4-15.4)
[2017-03-03 05:24] LABS: PARTIAL THROMBOPLASTIN TIME 79.3 SEC (23.5-35.8)
[2017-03-03 05:34] LABS: ALANINE AMINOTRANSFERASE 24 U/L (9-52); ALBUMIN 2.1 g/dL (3.5-5.0); ALKALINE PHOSPHATASE 146 U/L (38-126); ANION GAP 12 (5-19); ASPARTATE AMINO TRANSFERASE 55 U/L (14-36); BILIRUBIN,DIRECT 8.4 mg/dL (0.0-0.4); BILIRUBIN,TOTAL 9.9 mg/dL (0.2-1.3); BLOOD UREA NITROGEN 17 mg/dL (7-20); CALCIUM 8.9 mg/dL (8.4-10.2); CARBON DIOXIDE 15 mmol/L (22-30); CHLORIDE 108 mmol/L (98-107); CREATININE RESULT 0.98 mg/dL (0.52-1.25); GLUCOSE 64 mg/dL (75-110); SODIUM 134.9 mmol/L (137-145); TOTAL PROTEIN 5.6 g/dL (6.3-8.2)
[2017-03-03 05:36] LABS: POTASSIUM 5.3 mmol/L (3.6-5.0)
[2017-03-03 05:51] LABS: HEMATOCRIT 30.2 % (36.0-47.0); HEMOGLOBIN 9.6 g/dL (12.0-15.5); HGB HCT DIFFERENCE -1.4; MEAN CORPUSCULAR HEMOGLOBIN 29.8 pg (27.0-33.4); MEAN CORPUSCULAR HGB CONC 31.7 g/dL (32.0-36.0); MEAN CORPUSCULAR VOLUME 94 fl (80-97); RED BLOOD COUNT 3.22 10^6/uL (3.72-5.28)
[2017-03-03 06:11] LABS: WHITE BLOOD COUNT 30.7 10^3/uL (4.0-10.5)
[2017-03-03 06:13] LABS: BAND NEUTROPHILS % (MANUAL) 2 % (3-5); BASOPHILS % (MANUAL) 0 % (0-2); EOSINOPHILS % (MANUAL) 0 % (0-6); LYMPHOCYTES % (MANUAL) 6 % (13-45); NUCLEATED RED BLOOD CELLS 1 /100 WBC (0); TOTAL CELLS COUNTED 100
[2017-03-03 06:18] LABS: ANISOCYTOSIS 3+; BURR CELLS 1+; OVALOCYTES SLIGHT; POLYCHROMASIA SLIGHT; TOXIC GRANULATION SLIGHT
[2017-03-03 06:19] LABS: POIKILOCYTOSIS 1+
[2017-03-03] MEDS: MORPHINE SULFATE 10 MG/ML INJ IV PRN ×2 (09:30→23:02)
[2017-03-03] MEDS: NYSTATIN CREAM 15 GM TP SCH (10:00)
--- NOTE | 2017-03-03 16:46 | PDOC PROGRESS REPORT ---
Subjective Progress Note for:: 03/03/17 Subjective:: Patient seems relatively comfortable. I have discussed her care with her sister who is at bedside and sister agrees the patient has been comfortable while she has been at bedside. I cannot obtain history from patient secondary to significant encephalopathy. Physical Exam Vital Signs: Temp Pulse Resp BP Pulse Ox 97.2 F 90 18 126/82 H 94 03/01/17 19:55 03/03/17 14:00 03/02/17 14:00 03/02/17 12:32 03/02/17 14:00 Intake & Output 03/02/17 03/03/17 03/04/17 06:59 06:59 06:59 Intake Total 3588 1420 Output Total 865 465 Balance 2723 955 Weight 83.5 kg 85.8 kg GENERAL: unresponsive HEENT: moist mucous membranes, no JVD, midline trachea RESPIRATORY: Bilateral rhonchi CARDIAC: Regular rate and rhythm, no murmurs/gallops/rubs ABDOMEN: Soft, distended, obvious ascites, cholecystostomy tube a significant amount of drainage around tube site EXTREMETIES: No edema, cyanosis, clubbing NEUROLOGIC: Encephalopathic SKIN: Jaundiced Results Laboratory Results: 03/03/17 04:40 03/03/17 04:40 03/03/17 03/03/17 04:40 04:40 WBC 30.7 H* RBC 3.22 L Hgb 9.6 L Hct 30.2 L MCV 94 MCH 29.8 MCHC 31.7 L RDW 21.0 H Plt Count 109 L Seg Neutrophils % Not Reportable Lymphocytes % Not Reportable Monocytes % Not Reportable Eosinophils % Not Reportable Basophils % Not Reportable Absolute Neutrophils Not Reportable Absolute Lymphocytes Not Reportable Absolute Monocytes Not Reportable Absolute Eosinophils Not Reportable Absolute Basophils Not Reportable Sodium 134.9 L Potassium 5.3 H Chloride 108 H Carbon Dioxide 15 L Anion Gap 12 BUN 17 Creatinine 0.98 Est GFR ( Amer) > 60 Est GFR (Non-Af Amer) > 60 Glucose 64 L Calcium 8.9 Total Bilirubin 9.9 H AST 55 H ALT 24 Alkaline Phosphatase 146 H Total Protein 5.6 L Albumin 2.1 L 02/27/17 02/27/17 02/28/17 23:40 23:40 06:04 Creatine Kinase < 20 L < 20 L CK-MB (CK-2) 1.26 Troponin I < 0.012 02/28/17 02/28/17 02/28/17 06:04 13:40 13:40 Creatine Kinase < 20 L CK-MB (CK-2) 1.24 1.58 Troponin I < 0.012 < 0.012 Impressions: Abdomen Ultrasound 02/14/17 08:26 IMPRESSION: Diffusely echogenic liver from diffuse fatty infiltration hepatocellular disease Gallbladder filled with sludge, definite gallbladder wall thickening and pericholecystic fluid. Findings worrisome for cholecystitis Percutaneous Drainage 02/15/17 08:00 IMPRESSION: CT GUIDED CHOLECYSTOSTOMY TUBE PLACEMENT. NO IMMEDIATE COMPLICATIONS. 8 [place] INDWELLING CATHETER WITH LOCKING PIGTAIL IN THE GALLBLADDER. Paracentesis Ultrasound 02/23/17 09:00 IMPRESSION: Successful ultrasound-guided diagnostic and therapeutic paracentesis Abdomen MRI 02/25/17 10:15 IMPRESSION: 1. THE EXTRAHEPATIC BILIARY SYSTEM IS SOMEWHAT DIFFICULT TO ASSESS DUE TO THE SMALL SIZE, MEASURING 2 MM IN DIAMETER. NO DEFINITE FILLING DEFECTS VISUALIZED. 2. CONTRACTED GALLBLADDER. 3. ASCITES AND PLEURAL EFFUSIONS. Chest X-Ray 02/27/17 16:38 IMPRESSION: Low lung volumes results in bronchovascular crowding; cannot exclude superimposed lower lobe consolidation. Right upper quadrant surgical drain. Abdomen/Pelvis CT 03/01/17 11:23 IMPRESSION: The tubes and lines in appropriate positioning. Stable ascites in the abdomen and pelvis with third-spacing along the abdominal wall. Chest CT 03/01/17 11:23 IMPRESSION: Small bilateral pleural effusions right greater than left Alveolar and interstitial pattern throughout both lungs likely resolving pneumonia or edema. Assessment & Plan - Diagnosis (1) Sepsis Qualifiers: Sepsis type: methicillin susceptible Staphylococcus aureus Qualified Code(s): A41.01 - Sepsis due to Methicillin susceptible Staphylococcus aureus Is this a current diagnosis for this admission?: Yes (2) Pneumonia Qualifiers: Pneumonia type: due to unspecified organism Lung location: unspecified part of lung Is this a current diagnosis for this admission?: Yes (3) Bacteremia Is this a current diagnosis for this admission?: Yes (4) Acute cholecystitis Is this a current diagnosis for this admission?: Yes (5) Alcoholic liver failure Is this a current diagnosis for this admission?: Yes (6) Acute renal failure Qualifiers: Acute renal failure type: unspecified Qualified Code(s): N17.9 - Acute kidney failure, unspecified Is this a current diagnosis for this admission?: Yes (7) Anemia Qualifiers: Anemia type: other cause Other causes of anemia: chronic disease, other Qualified Code(s): D63.8 - Anemia in other chronic diseases classified elsewhere Is this a current diagnosis for this admission?: Yes (8) Diarrhea Is this a current diagnosis for this admission?: Yes (9) E-coli UTI Is this a current diagnosis for this admission?: Yes (10) Metabolic encephalopathy Is this a current diagnosis for this admission?: Yes - Time Time Spent with patient: 15-24 minutes Disposition: Continue COMFORT MEASURES.
[2017-03-04] MEDS: IMIPENEM/CILASTATIN SODIUM 1,000 MG in NORMAL SALINE 250 ML IV SCH ×3 (00:10→12:02)
[2017-03-04 07:12] LABS: MEAN CORPUSCULAR VOLUME 94 fl (80-97)
[2017-03-04 07:24] LABS: HEMATOCRIT 27.9 % (36.0-47.0); HEMOGLOBIN 8.9 g/dL (12.0-15.5); HGB HCT DIFFERENCE -1.2; MEAN CORPUSCULAR HEMOGLOBIN 29.8 pg (27.0-33.4); MEAN CORPUSCULAR HGB CONC 31.8 g/dL (32.0-36.0); RED BLOOD COUNT 2.98 10^6/uL (3.72-5.28); RED CELL DISTRIBUTION WIDTH 20.8 % (11.5-14.0)
[2017-03-04 07:46] LABS: ALANINE AMINOTRANSFERASE 16 U/L (9-52); ALBUMIN 2.1 g/dL (3.5-5.0); ALKALINE PHOSPHATASE 159 U/L (38-126); ANION GAP 12 (5-19); ASPARTATE AMINO TRANSFERASE 68 U/L (14-36); BILIRUBIN,TOTAL 9.4 mg/dL (0.2-1.3); BLOOD UREA NITROGEN 20 mg/dL (7-20); CALCIUM 9.1 mg/dL (8.4-10.2); CARBON DIOXIDE 15 mmol/L (22-30); CHLORIDE 108 mmol/L (98-107); CREATININE RESULT 1.44 mg/dL (0.52-1.25); GLUCOSE 44 mg/dL (75-110); POTASSIUM 5.7 mmol/L (3.6-5.0); SODIUM 134.5 mmol/L (137-145); TOTAL PROTEIN 5.7 g/dL (6.3-8.2)
[2017-03-04 08:01] LABS: BAND NEUTROPHILS % (MANUAL) 10 % (3-5); BASOPHILS % (MANUAL) 0 % (0-2); EOSINOPHILS % (MANUAL) 0 % (0-6); LYMPHOCYTES % (MANUAL) 3 % (13-45); TOTAL CELLS COUNTED 100
[2017-03-04 08:06] LABS: ANISOCYTOSIS 2+; BURR CELLS 2+; HYPOCHROMASIA SLIGHT; POIKILOCYTOSIS 1+; POLYCHROMASIA SLIGHT; TARGET CELLS SLIGHT; TEAR DROP CELLS SLIGHT; TOXIC GRANULATION SLIGHT
[2017-03-04 08:09] LABS: PLATELET CLUMPS PRESENT
[2017-03-04 08:13] LABS: WHITE BLOOD COUNT 38.1 10^3/uL (4.0-10.5)
[2017-03-04 08:43] LABS: PATH REVIEW PATHOLOGIST REVIEWED
[2017-03-04] MEDS: NYSTATIN CREAM 15 GM TP SCH (12:02)
--- NOTE | 2017-03-04 16:22 | PDOC PROGRESS REPORT ---
Subjective Progress Note for:: 03/04/17 Subjective:: Patient seems relatively comfortable. I cannot obtain history from patient secondary to significant encephalopathy. Physical Exam Vital Signs: Temp Pulse Resp BP Pulse Ox 97.2 F 93 20 98/54 L 99 03/01/17 19:55 03/04/17 07:30 03/04/17 07:30 03/04/17 07:30 03/04/17 07:30 Intake & Output 03/03/17 03/04/17 03/05/17 06:59 06:59 06:59 Intake Total 1420 45 0 Output Total 465 650 25 Balance 955 -605 -25 Weight 85.8 kg GENERAL: unresponsive HEENT: moist mucous membranes, no JVD, midline trachea RESPIRATORY: Bilateral rhonchi CARDIAC: Regular rate and rhythm, no murmurs/gallops/rubs ABDOMEN: Soft, distended, obvious ascites, cholecystostomy tube a significant amount of drainage around tube site EXTREMETIES: No edema, cyanosis, clubbing NEUROLOGIC: Encephalopathic SKIN: Jaundiced Results Laboratory Results: 03/04/17 06:52 03/04/17 06:52 03/01/17 03/04/17 03/04/17 05:02 06:52 06:52 WBC 38.3 H* 38.1 H* RBC 2.98 L 2.98 L Hgb 8.8 L 8.9 L Hct 27.7 L 27.9 L MCV 93 94 MCH 29.7 29.8 MCHC 32.0 31.8 L RDW 21.7 H 20.8 H Plt Count 130 L 133 L Seg Neutrophils % Not Reportable Lymphocytes % Not Reportable Monocytes % Not Reportable Eosinophils % Not Reportable Basophils % Not Reportable Absolute Neutrophils Not Reportable Absolute Lymphocytes Not Reportable Absolute Monocytes Not Reportable Absolute Eosinophils Not Reportable Absolute Basophils Not Reportable Sodium 134.5 L Potassium 5.7 H Chloride 108 H Carbon Dioxide 15 L Anion Gap 12 BUN 20 Creatinine 1.44 H Est GFR ( Amer) 46 L Est GFR (Non-Af Amer) 38 L Glucose 44 L Calcium 9.1 Total Bilirubin 9.4 H AST 68 H ALT 16 Alkaline Phosphatase 159 H Total Protein 5.7 L Albumin 2.1 L 03/01/17 19:30 Catheter Tip - Central Line Catheter Tip Culture - Final NO GROWTH 3 DAYS 02/27/17 02/27/17 02/28/17 23:40 23:40 06:04 Creatine Kinase < 20 L < 20 L CK-MB (CK-2) 1.26 Troponin I < 0.012 02/28/17 02/28/17 02/28/17 06:04 13:40 13:40 Creatine Kinase < 20 L CK-MB (CK-2) 1.24 1.58 Troponin I < 0.012 < 0.012 Impressions: Abdomen Ultrasound 02/14/17 08:26 IMPRESSION: Diffusely echogenic liver from diffuse fatty infiltration hepatocellular disease Gallbladder filled with sludge, definite gallbladder wall thickening and pericholecystic fluid. Findings worrisome for cholecystitis Percutaneous Drainage 02/15/17 08:00 IMPRESSION: CT GUIDED CHOLECYSTOSTOMY TUBE PLACEMENT. NO IMMEDIATE COMPLICATIONS. 8 [place] INDWELLING CATHETER WITH LOCKING PIGTAIL IN THE GALLBLADDER. Paracentesis Ultrasound 02/23/17 09:00 IMPRESSION: Successful ultrasound-guided diagnostic and therapeutic paracentesis Abdomen MRI 02/25/17 10:15 IMPRESSION: 1. THE EXTRAHEPATIC BILIARY SYSTEM IS SOMEWHAT DIFFICULT TO ASSESS DUE TO THE SMALL SIZE, MEASURING 2 MM IN DIAMETER. NO DEFINITE FILLING DEFECTS VISUALIZED. 2. CONTRACTED GALLBLADDER. 3. ASCITES AND PLEURAL EFFUSIONS. Chest X-Ray 02/27/17 16:38 IMPRESSION: Low lung volumes results in bronchovascular crowding; cannot exclude superimposed lower lobe consolidation. Right upper quadrant surgical drain. Abdomen/Pelvis CT 03/01/17 11:23 IMPRESSION: The tubes and lines in appropriate positioning. Stable ascites in the abdomen and pelvis with third-spacing along the abdominal wall. Chest CT 03/01/17 11:23 IMPRESSION: Small bilateral pleural effusions right greater than left Alveolar and interstitial pattern throughout both lungs likely resolving pneumonia or edema. Assessment & Plan - Diagnosis (1) Sepsis Qualifiers: Sepsis type: methicillin susceptible Staphylococcus aureus Qualified Code(s): A41.01 - Sepsis due to Methicillin susceptible Staphylococcus aureus Is this a current diagnosis for this admission?: Yes (2) Pneumonia Qualifiers: Pneumonia type: due to unspecified organism Lung location: unspecified part of lung Is this a current diagnosis for this admission?: Yes (3) Bacteremia Is this a current diagnosis for this admission?: Yes (4) Acute cholecystitis Is this a current diagnosis for this admission?: Yes (5) Alcoholic liver failure Is this a current diagnosis for this admission?: Yes (6) Acute renal failure Qualifiers: Acute renal failure type: unspecified Qualified Code(s): N17.9 - Acute kidney failure, unspecified Is this a current diagnosis for this admission?: Yes (7) Anemia Qualifiers: Anemia type: other cause Other causes of anemia: chronic disease, other Qualified Code(s): D63.8 - Anemia in other chronic diseases classified elsewhere Is this a current diagnosis for this admission?: Yes (8) Diarrhea Is this a current diagnosis for this admission?: Yes (9) E-coli UTI Is this a current diagnosis for this admission?: Yes (10) Metabolic encephalopathy Is this a current diagnosis for this admission?: Yes - Time Time Spent with patient: Less than 15 minutes Disposition: Continue comfort measures only.
[2017-03-04 21:28] VITALS: BP 98/67
[2017-03-05] MEDS: MORPHINE SULFATE 10 MG/ML INJ IV PRN (04:20)
--- NOTE | 2017-03-05 17:02 | Death Summary ---
Summary Date : 03/05/17 Time of :: 10:03 Autopsy: No Resuscitation Status: Comfort Measures Only - Final Diagnosis (1) Sepsis Is this a current diagnosis for this admission?: Yes (2) Acute cholecystitis Is this a current diagnosis for this admission?: Yes (3) Pneumonia Is this a current diagnosis for this admission?: Yes (4) Bacteremia Is this a current diagnosis for this admission?: Yes (5) Alcoholic liver failure Is this a current diagnosis for this admission?: Yes (6) Acute renal failure Is this a current diagnosis for this admission?: Yes (7) Anemia Is this a current diagnosis for this admission?: Yes (8) Diarrhea Is this a current diagnosis for this admission?: Yes (9) E-coli UTI Is this a current diagnosis for this admission?: Yes (10) Metabolic encephalopathy Is this a current diagnosis for this admission?: Yes Hospital Course:: Patient was admitted primarily for sepsis associated with acute cholecystitis. Patient has end-stage liver disease secondary to history of alcohol abuse. She had cholecystostomy tube placed. She was placed on broad-spectrum IV antibiotics. Clinical condition did not improve throughout hospitalization and in fact worsen as she developed bilateral pneumonia. Given worsening of her clinical condition and end-stage liver disease patient was made comfort measures only by her daughter. Family members were eventually present in all in agreement.
== END 2017-03-05 10:03 | DRG 871 ==
LOC: ER 13:31 → EH 17:53 → UNDOADMIN 17:53 → EH 18:11 → ICU 20:57 → 3W 02-19 11:55
PROVIDERS: ADMIT Internal Medicine; ATTEND Internal Medicine
PROC: 30233N1 Transfusion of Nonautologous Red Blood Cells into Peripheral Vein, Percutaneous Approach (ICD-10-PCS; 2017-02-12)
PROC: 02HV33Z Insertion of Infusion Device into Superior Vena Cava, Percutaneous Approach (ICD-10-PCS; 2017-02-12)
PROC: B548ZZA Ultrasonography of Superior Vena Cava, Guidance (ICD-10-PCS; 2017-02-12)
PROC: 06HM33Z Insertion of Infusion Device into Right Femoral Vein, Percutaneous Approach (ICD-10-PCS; 2017-02-12)
PROC: B54BZZA Ultrasonography of Right Lower Extremity Veins, Guidance (ICD-10-PCS; 2017-02-12)
PROC: 0F9430Z Drainage of Gallbladder with Drainage Device, Percutaneous Approach (ICD-10-PCS; principal; 2017-02-15)
PROC: 30233L1 Transfusion of Nonautologous Fresh Plasma into Peripheral Vein, Percutaneous Approach (ICD-10-PCS; 2017-02-15)
PROC: 30233N1 Transfusion of Nonautologous Red Blood Cells into Peripheral Vein, Percutaneous Approach (ICD-10-PCS; 2017-02-23)
PROC: 0W9G3ZX Drainage of Peritoneal Cavity, Percutaneous Approach, Diagnostic (ICD-10-PCS; 2017-02-23)
PROC: 3E0F73Z Introduction of Anti-inflammatory into Respiratory Tract, Via Natural or Artificial Opening (ICD-10-PCS; 2017-02-27)
DX: A41.51 Sepsis due to Escherichia coli [E. coli] (principal); J18.9 Pneumonia, unspecified organism; N17.0 Acute kidney failure with tubular necrosis; K65.2 Spontaneous bacterial peritonitis; K81.0 Acute cholecystitis; N39.0 Urinary tract infection, site not specified; E51.2 Wernicke's encephalopathy; E87.0 Hyperosmolality and hypernatremia; K92.1 Melena; A41.01 Sepsis due to Methicillin susceptible Staphylococcus aureus; E86.0 Dehydration; K70.40 Alcoholic hepatic failure without coma; F10.20 Alcohol dependence, uncomplicated; D63.8 Anemia in other chronic diseases classified elsewhere; R65.20 Severe sepsis without septic shock; I10 Essential (primary) hypertension; E83.51 Hypocalcemia; E87.6 Hypokalemia; E83.42 Hypomagnesemia; E55.9 Vitamin D deficiency, unspecified; F32.9 Major depressive disorder, single episode, unspecified; L89.309 Pressure ulcer of unspecified buttock, unspecified stage; Z78.1 Physical restraint status; Z66 Do not resuscitate; Z86.73 Personal history of transient ischemic attack (TIA), and cerebral infarction without residual deficits; I25.2 Old myocardial infarction; Z82.61 Family history of arthritis; Z82.49 Family history of ischemic heart disease and other diseases of the circulatory system; Z82.3 Family history of stroke; Z80.9 Family history of malignant neoplasm, unspecified
CPT/HCPCS: 36415; 36430; 36600; 49083; 51701; 71010; 71260; 74176; 74177; 74181; 75989; 76705; 80048; 80053; 80061; 80076; 80202; 80307; 81001; 82140; 82272; 82306; 82550; 82553; 82565; 82607; 82652; 82728; 82746; 82803; 82962; 83540; 83550; 83605; 83690; 83735; 84132; 84439; 84443; 84484; 85025; 85027; 85045; 85379; 85610; 85730; 86850; 86900; 86901; 86920; 87040; 87070; 87075; 87077; 87086; 87088; 87186; 87205; 87493; 93005; 93010; 93306; 93976; 94640; 94667; 94799; 96361; 96365; 96375; 99285; C1751; J0610; J0690; J0696; J0743; J0744; J1642; J1644; J1940; J1956; J2060; J2250; J2270; J2310; J2405; J2543; J3010; J3370; J3411; J3475; J3480; J3490; J7030; J7040; J7050; J7060; J7620; P9016; P9017; P9047; S0164